=== PATIENT | female | born 1945 | race Caucasian/White ===

== ENCOUNTER 2017-07-03 17:02 | Emergency (ER) | payer MEDICARE ==
[~2017-07-03] VITALS: Ht 165.1 cm; Wt 90.7 kg
--- OUTSIDE RECORDS SUMMARY | 2017-07-03 17:04 | XMS REPORT | Clinical Summary ---
Author Author [facility] Address Unknown Phone Unavailable Care Team Providers Care Lighter Captain Name Role Phone Blaine Gonzalez MD PCP Allergies Active Allergy Reactions Severity Noted Date Comments Iodine And Iodide Hives, Rash Low 01/01/2016 Containing Products Levofloxacin Hives 02/05/2017 Meperidine GI Intolerance, Rash Low 01/01/2016 Morphine Other (See Comments) 01/01/2016 hallucinaton Phenytoin Rash Low 01/01/2016 Phenytoin Sodium Extended Other (See Comments) Medium 01/01/2016 Propoxyphene GI Intolerance, Hives, Low 01/01/2016 N-Acetaminophen Rash Current Medications Prescription Sig. Disp. Refills Start End Date Status Date albuterol (PROAIR Inhale 2 puffs every 6 Active HFA,PROVENTIL (six) hours as needed for HFA,VENTOLIN HFA) 90 wheezing or shortness of mcg/actuation inhaler breath. levalbuterol (XOPENEX) Take 1 mL by nebulization 0 01/20/20 Active 0.63 mg/3 mL nebulizer every 4 (four) hours. 17 solution epINEPHrine (EPIPEN) 0.3 Inject 1 Cartridge as Active mg/0.3 mL auto-injector directed as needed. ergocalciferol (VITAMIN Take 1 capsule (50,000 12 capsule 3 01/27/20 Active D2) 50,000 unit capsule Units total) by mouth 17 once a week. ipratropium (ATROVENT . 05/07/19 Active HFA) 17 mcg/actuation 16 inhaler VENTOLIN HFA 90 0 11/09/19 01/15/20 Discontin mcg/actuation inhaler 16 17 ued DEXILANT 60 mg capsule TK ONE C PO D 12 11/27/19 01/15/20 Discontin 16 17 ued predniSONE (DELTASONE) 20 TK 1 T PO QD FOR 5 DAYS 0 11/09/19 Discontin MG tablet 16 17 ued urea (CARMOL) 40 % cream JT TO THICK SKIN ON FEET 0 11/29/19 Discontin BID UTD 16 17 ued diclofenac (VOLTAREN) 1 % Apply topically 4 (four) 1 Tube 0 04/24/19 01/15/20 Discontin gel times a day. 17 17 ued dexlansoprazole Take 60 mg by mouth 01/17/20 Discontin (DEXILANT) 60 mg capsule daily. 17 ued nizatidine (AXID) 150 MG Take 150 mg by mouth 3 01/27/20 Discontin capsule (three) times a day as 17 ued needed for heartburn. ergocalciferol (VITAMIN Take 50,000 Units by 01/27/20 Discontin D2) 50,000 unit capsule mouth once a week. 17 ued budesonide-formoterol Inhale 2 puffs 2 (two) 05/11/19 Discontin (SYMBICORT) 160-4.5 times a day. 18 ued mcg/actuation inhaler pantoprazole (PROTONIX) Take 1 tablet (40 mg 60 tablet 2 01/17/20 Discontin 40 MG EC tablet total) by mouth 2 (two) 17 17 ued times a day for 30 days. predniSONE (DELTASONE) 10 Take 10 mg by mouth 02/06/20 Discontin mg tablet daily. 17 ued dexlansoprazole Take 60 mg by mouth 01/27/20 Discontin (DEXILANT) 60 mg capsule daily. 17 ued dexlansoprazole Take 1 capsule (60 mg 90 capsule 3 01/27/20 Discontin (DEXILANT) 60 mg capsule total) by mouth daily. 17 18 ued nizatidine (AXID) 150 MG Take 1 capsule (150 mg 180 capsule 1 05/11/19 Discontin capsule total) by mouth 2 (two) 17 18 ued times a day. nystatin (MYCOSTATIN) Take 5 mL (500,000 Units 473 mL 1 01/29/20 100,000 unit/mL total) by mouth 4 (four) 17 17 suspension times a day for 7 days. Swish in mouth predniSONE (DELTASONE) 10 Take 6 tabs x 2 days, 32 tablet 0 02/06/20 02/16/20 mg tablet then 4 tabs daily x 2 17 17 days then 3 tabs daily x 2 days then 2 tabs daily x 2 days then 1 tab daily x 2 days then stop sulfamethoxazole-trimetho Take 1 tablet by mouth 2 20 tablet 0 02/16/20 prim (BACTRIM DS) 800-160 (two) times a day for 10 17 17 mg per tablet days. promethazine-DM Take 5 mL by mouth 4 118 mL 0 03/13/20 04/12/19 (PROMETHAZINE-DM) 6.25-15 (four) times a day as 17 18 mg/5 mL syrup needed for cough for up to 30 days. ergocalciferol (VITAMIN 01/27/20 05/11/19 Discontin D2) 50,000 unit capsule 17 18 ued budesonide-formoterol 01/07/20 05/11/19 Discontin (SYMBICORT) 160-4.5 17 18 ued mcg/actuation inhaler levalbuterol (XOPENEX) 02/14/20 05/11/19 Discontin 0.63 mg/3 mL nebulizer 17 18 ued solution nizatidine (AXID) 150 MG 01/28/20 05/11/19 Discontin capsule 17 18 ued epINEPHrine (EPIPEN . 05/29/19 06/18/19 Discontin 2-ALFRED) 0.3 mg/0.3 mL 16 18 ued auto-injector dexlansoprazole Take 60 mg by mouth 2 09/03/19 05/21/19 Discontin (DEXILANT) 60 mg capsule (two) times a day. 17 18 ued dexlansoprazole Take 1 capsule (60 mg 180 capsule 0 05/21/19 Discontin (DEXILANT) 60 mg capsule total) by mouth 2 (two) 18 18 ued times a day for 90 days. dexlansoprazole Take 1 capsule (60 mg 90 capsule 0 05/21/19 (DEXILANT) 60 mg capsule total) by mouth daily for 18 18 30 days. ergocalciferol (VITAMIN . 05/29/19 06/18/19 Discontin D2) 50,000 unit capsule 16 18 ued epINEPHrine (EPIPEN . 05/29/19 06/18/19 Discontin 2-ALFRED) 0.3 mg/0.3 mL 16 18 ued auto-injector Active Problems Problem Noted Date Achalasia of esophagus 05/28/2017 Last Assessment & Plan: The patient was found to have type III achalasia. This seems to go along with her history of dysphagia as well as regurgitation and chest pain. The patient was very inquisitive and asked numerous questions. She seems to be still very worried about her symptoms of heartburn and if this will get worse after surgery. I discussed with the patient she likely does not have GERD, however, she is still very concerned. Her last pH study showed a normal DeMeester score, on medications. I discussed with her a POEM procedure versus a Heller myotomy with Christoph fundoplication. She is are done some research on her own and is currently requesting a Heller myotomy with Christoph fundoplication to prevent future heartburn. She reports that she will be out of town for a while and will call back to schedule surgery. Risks and benefits of both procedures were discussed with the patient. I will obtain pulmonary clearance prior to surgery. The patient will also need cardiac clearance prior to surgery. Severe persistent asthma with exacerbation 01/13/2017 Patellar sleeve fracture of left knee 01/01/2016 Acute upper respiratory infection 07/13/2015 Asthma 07/13/2015 GERD (gastroesophageal reflux disease) 07/13/2015 Nausea and vomiting 07/13/2015 Encounters Date Type Specialty Care Team Description 06/25/2017 Telephone Gastroenterology Lawanda Guo RN 06/17/2017 Lab Lab Deep Torres MD Pre-diabetes 06/17/2017 Office Visit General Surgery Deep Torres MD Achalasia of esophagus (Primary Dx) 06/17/2017 Orders Only General Surgery Anuradha Wolf MA Obesity, unspecified classification, unspecified obesity type, unspecified whether serious comorbidity present (Primary Dx) 06/17/2017 Orders Only General Surgery Deep Torres MD 06/17/2017 Orders Only General Surgery Deep Torres MD Pre- diabetes (Primary Dx) 05/28/2017 Office Visit Gastroenterology Steve Frank MD Gastroesophageal reflux disease without esophagitis (Primary Dx); Achalasia of esophagus 05/27/2017 Telephone Gastroenterology Lawanda Guo RN 05/26/2017 Hospital Radiology Steve Frank MD Achalasia; Encounter Gastroesophageal reflux disease with esophagitis 05/24/2017 Telephone GastroenterLawanda Pang, THOMPSON 05/24/2017 Telephone Gastroenterology Rochelle Siu MA 05/21/2017 Orders Only Gastroenterology Rochelle Siu, Achalasia (Primary Dx); MA Gastroesophageal reflux disease with esophagitis 05/20/2017 Telephone Gastroenterology Lawanda Guo, THOMPSON 05/19/2017 Telephone GastroenterSteve Brothers MD 05/19/2017 Procedure Pass Gastroenterology 05/19/2017 Surgery Steve Song MD ESOPHAGEAL MANOMETRY WITH IMPEDANCE PROBE 24 HOUR RETURN 05/18/2017 [facility] G[facility]enter[facility] MD Encounter 05/18/2017 Procedure Pass Gastroenterology 05/18/2017 Surgery Steve Song MD ESOPHAGEAL MANOMETRY WITH IMPEDANCE PROBE 05/11/2017 Office Visit Internal Medicine Sarah Gonzalez MD Routine general medical examination at a health care facility (Primary Dx); Hyperglycemia; IFG (impaired fasting glucose); Vitamin D deficiency; Gastroesophageal reflux disease with esophagitis; Recurrent pneumonia; Thyroid nodule; Elevated blood pressure reading without diagnosis of hypertension; Immunization due; Other obesity due to excess calories ; Imbalance 05/07/2017 [facility] GastroenterSteve Brothers MD Encounter 04/30/2017 Telephone Gastroenterology Rochelle Siu MA 04/29/2017 Lab Lab Steve Frank MD 04/29/2017 Documentation Gastroenterology Steve Frank MD 04/27/2017 Telephone Steve Song MD 04/22/2017 Hospital Radiology Steve Frank MD Presbyesophagus; Encounter At risk for aspiration; Gastroesophageal reflux disease, esophagitis presence not specified 04/14/2017 Office Visit GastroenterSteve Brothers MD Gastroesophageal reflux disease, esophagitis presence not specified (Primary Dx); Presbyesophagus; At risk for aspiration; Family history of colon cancer in mother 03/14/2017 Documentation Internal Medicine Sarah Gonzalez MD ENT CONSULT NOTE 03/10/17 03/13/2017 Emergency Emergency Medicine Ramesh Carpio, Chronic coughing (Primary DO Dx) 02/05/2017 Hospital Radiology Sarah Gonzalez MD Cough Encounter 02/05/2017 Office Visit Internal Medicine Sarah Gonzalez MD Cough (Primary Dx); Severe persistent asthma with exacerbation 02/04/2017 Telephone Internal Medicine Tammy Vega 01/28/2017 Orders Only Internal Medicine Sarah Gonzalez MD 01/26/2017 Office Visit Internal Medicine Sarah Gonzalez MD Hospital discharge follow-up (Primary Dx); Moderate persistent asthma with acute exacerbation; Presbyesophagus; At risk for aspiration; Depression, unspecified depression type 01/22/2017 Telephone Internal Medicine Sarah Gonzalez MD 01/18/2017 Telephone Gastroenterology Sujata Cortez MA 01/13/2017 Emergency Obstetrics and Gynecology Meenu Hart MD Pneumonia of left lower - Mukesh Ponce MD lobe due to infectious 01/16/2017 organism (Primary Dx); Moderate persistent asthma with status asthmaticus; Severe persistent asthma with exacerbation 01/13/2017 Telephone Internal Medicine Kathy Lee, RN after 07/02/2016 Immunizations Name Dates Previously Given Next Due FLUCELVAX QUAD PF (0.5mL 01/16/2017 syringe) Influenza Trivalent 01/10/2015 Pneumococcal Conjugate 05/11/2017 13-Valent Pneumococcal 04/12/2011 Polysaccharide Pneumococcal, Unspecified 01/10/2014 Zoster 04/12/2013 Family History Medical History Relation Name Comments Hypertension Brother Jayy [place] extremely high BP Heart murmur Daughter Mitral valve prolapse Daughter Anesthesia problems Father Sennorm Difficulty waking [place] COPD Father Sennett [place] Heart attack Father Sennett [place] Heart disease Father Sennett multiple heart attacks [place] Stroke Father Sennett paralysis-below neck [place] Breast cancer Maternal Aunt Colon cancer Maternal Delta caused Grandfather Saulters Heart disease Maternal Delta multiple heart attacks Grandfather Saulters Stroke Maternal Purvi caused Grandmother Saulters Varicose Veins Maternal Purvi Had surgeries for them Grandmother Saulters Colon cancer Mother Brittany Bittinger Hypertension Mother Brittany Bittinger extremely high BP Stroke Paternal Kell [place] Caused Grandmother Anesthesia problems Son Lorenzo Nitrous oxide seizure John Heart murmur Son Lorenzo [place] No Known Problems Son Relation Name Status Comments Brother Jayy [place] Alive Brother Alive Daughter Alive Father Abeba [place] Maternal Aunt Maternal Grandfather Detla [place] Maternal Grandmother Purvi [place] Alive Mother Brittany Kenny Paternal Grandfather Paternal Grandmother Kell [place] Alive Son Lorenzo Alive John Son Alive Social History Tobacco Use Types Packs/Day Years Used Date Never Smoker Smokeless Tobacco: Never Used Alcohol Use Drinks/Week oz/Week Comments No Sex Assigned at Date Recorded Not on file Last Filed Vital Signs Vital Sign Reading Time Taken Blood Pressure 147/70 06/17/2017 9:28 AM LABOR DELIVERY RN Pulse 64 06/17/2017 9:28 AM LABOR DELIVERY RN Temperature 36.3 C (97.3 F) 06/17/2017 9:28 AM LABOR DELIVERY RN Respiratory Rate 20 05/18/2017 10:29 AM LABOR DELIVERY RN Oxygen Saturation 97% 05/18/2017 10:29 AM LABOR DELIVERY RN Inhaled Oxygen - - Concentration Weight 101 kg (221 lb 11.2 oz) 06/17/2017 9:28 AM LABOR DELIVERY RN Height 165.1 cm (5' 5") 06/17/2017 9:28 AM LABOR DELIVERY RN Body Mass Index 36.89 06/17/2017 9:28 AM LABOR DELIVERY RN Plan of Treatment Date Type Specialty Care Team Description 07/16/2017 Office Visit Gastroenterology Steve Frank MD [address] [facility] [address] [place] [address] [phone] 07/21/2017 Surgery Gastroenterology Deep Torres MD TRENT PLACEMENT [address] [facility] [address] [address] [place] [address] [phone] 07/21/2017 Procedure Pass Gastroenterology 07/21/2017 [facility] Gastroenterology Deep Torres MD Encounter [address] [facility] [address] [place] [address] [phone] 07/23/2017 Surgery Gastroenterology Deep Torres MD TRENT REMOVAL ( 48 HOURS) [address] [facility] [address] [place] [address] [phone] 07/23/2017 Procedure Pass Gastroenterology 07/23/2017 [facility] Gastroenterology Deep Torres MD Encounter [address] [facility] [address] [place] [address] [phone] 11/08/2017 Office Visit Internal Medicine Sarah Gonzalez MD [address] [facility] [address] [place] [address] [phone] Health Maintenance Due Date Last Done Comments MAMMOGRAM 10/19/1997 COLONOSCOPY 04/14/2019 04/14/2014 PNEUMOCOCCAL Completed 04/12/2011 POLYSACCHARIDE VACCINE AGE 65 AND OVER ZOSTER VACCINE Completed 04/12/2013 INFLUENZA VACCINE Completed 01/16/2017, 01/10/2015 PNEUMOCOCCAL-13 Completed 05/11/2017 Procedures Procedure Name Priority Date/Time Associated Diagnosis Comments ESOPHAGEAL MANOMETRY WITH 05/18/2017 Chronic GERD IMPEDANCE PROBE 9:00 AM LABOR DELIVERY RN after 07/02/2016 Results * Hemoglobin A1c (06/17/2017) Only the most recent of 2 results within the time period is included. Component Value Ref Range Hemoglobin A1C 5.1 <5.7 % of total Hgb Comment: For the purpose of screening for the presence of diabetes: <5.7% Consistent with the absence of diabetes 5.7-6.4% Consistent with increased risk for diabetes (prediabetes) > or=6.5% Consistent with diabetes This assay result is consistent with a decreased risk of diabetes. Currently, no consensus exists regarding use of hemoglobin A1c for diagnosis of diabetes in children. According to [place] Citizen Diabetes Association (ADA) guidelines, hemoglobin A1c <7.0% represents optimal control in non- diabetic patients. Different metrics may apply to specific patient populations. Standards of Medical Care in Diabetes(ADA). Specimen Performing Laboratory [facility] Narrative FASTING: UNKNOWN * FL Esophagram Complete (05/26/2017 12:54 PM) Only the most recent of 2 results within the time period is included. Specimen Performing Laboratory [facility] [address] [place] [address] Narrative EXAMINATION:FL ESOPHAGRAM COMPLETE CLINICAL HISTORY:K22.0 Achalasia of cardia, K21.0 Gastro-esophageal reflux disease with esophagitis, Achalasia COMPARISON:None available Fluoroscopy time: 0.5 minutes Number fluoroscopic images: 5 FINDINGS: The patient swallowed barium without difficulty. The examination was performed per the foregut protocol. Loss of normal esophageal motility with loss of the normal stripping wave and significant tertiary contractions of the distal esophagus consistent with achalasia. At 1 minute, the contrast column was 18 cm cranially and 26 cm caudally. At 2 minutes, the contrast column was 19 cm cranially and 26 cm caudally. There is complete emptying of the esophagus at 5 minutes. A barium pill was administered which demonstrated no evidence of delayed passage through the esophagus. IMPRESSION: Imaging findings consistent with achalasia. Contrast emptying as above. No obstruction to passage of a barium tablet. [facility]-[id number] Procedure Note [facility], Radiology Results Incoming - 05/26/2017 1:12 PM LABOR DELIVERY RN EXAMINATION: FL ESOPHAGRAM COMPLETE CLINICAL HISTORY: K22.0 Achalasia of cardia, K21.0 Gastro-esophageal reflux disease with esophagitis, Achalasia COMPARISON: None available Fluoroscopy time: 0.5 minutes Number fluoroscopic images: 5 FINDINGS: The patient swallowed barium without difficulty. The examination was performed per the foregut protocol. Loss of normal esophageal motility with loss of the normal stripping wave and significant tertiary contractions of the distal esophagus consistent with achalasia. At 1 minute, the contrast column was 18 cm cranially and 26 cm caudally. At 2 minutes, the contrast column was 19 cm cranially and 26 cm caudally. There is complete emptying of the esophagus at 5 minutes. A barium pill was administered which demonstrated no evidence of delayed passage through the esophagus. IMPRESSION: Imaging findings consistent with achalasia. Contrast emptying as above. No obstruction to passage of a barium tablet. [facility]-[id number] * Vitamin D 25 hydroxy level (05/11/2017 1:04 PM) Component Value Ref Range Vitamin D, 25-hydroxy 30 30 - 100 ng/mL Comment: Vitamin D Status 25-OH Vitamin D: Deficiency: <20 ng/mL Insufficiency: 20 - 29 ng/mL Optimal: > or=30 ng/mL For 25-OH Vitamin D testing on patients on D2-supplementation and patients for whom quantitation of D2 and D3 fractions is required, the QuestAssureD() 25-OH VIT D, (D2,D3), LC/MS/MS is recommended: order code 09309 (patients >2yrs). For more information on this test, go to: http://education.[place]/faq/WHV888 (This link is being provided for informational/educational purposes only.) Specimen Performing Laboratory [facility] * Lipid panel (05/11/2017 1:04 PM) Component Value Ref Range Cholesterol, total 147 <200 mg/dL HDL cholesterol 70 >50 mg/dL Triglycerides 95 <150 mg/dL LDL cholesterol 59 mg/dL (calc) calculated Comment: Reference range: <100 Desirable range <100 mg/dL for patients with CHD or diabetes and <70 mg/dL for diabetic patients with known heart disease. LDL-C is now calculated using the Alex-Jerrell calculation, which is a validated novel method providing better accuracy than the Friedewald equation in the estimation of LDL-C. Alex HOYOS et al. FLORY. 2013;310(19): 8147-6994 (http://education.[place]/faq/WLU137) Cholesterol/HDL ratio 2.1 <5.0 (calc) Non-HDL cholesterol 77 <130 mg/dL (calc) Comment: For patients with diabetes plus 1 major ASCVD risk factor, treating to a non-HDL-C goal of <100 mg/dL (LDL-C of <70 mg/dL) is considered a therapeutic option. Specimen Performing Laboratory [facility] * Basic metabolic panel (05/11/2017 1:04 PM) Only the most recent of 2 results within the time period is included. Component Value Ref Range Glucose 95 65 - 99 mg/dL Comment: Fasting reference interval BUN, whole blood 12 7 - 25 mg/dL Creatinine 0.69 0.50 - 0.99 mg/dL Comment: For patients >49 years of age, the reference limit for Creatinine is approximately 13% higher for people identified as -[place] Citizen. EGFR Non-Afr. [place] Citizen 89 > OR=60 mL/min/1.73m2 EGFR 103 > OR=60 mL/min/1.73m2 BUN/creatinine ratio NOT APPLICABLE 6 - 22 (calc) Sodium 146 135 - 146 mmol/L Potassium 4.4 3.5 - 5.3 mmol/L Chloride 109 98 - 110 mmol/L CO2 29 20 - 31 mmol/L Calcium 9.7 8.6 - 10.4 mg/dL Specimen Performing Laboratory [facility] * Surgical pathology request (04/29/2017 4:57 PM) Component Value Ref Range Surgical pathology report See link below for PDF Lab Report Result status This is Final Report to [id number] Specimen Performing Laboratory [facility] DEPARTMENT OF PATHOLOGY AND GENOMIC MEDICINE [address] [place] [id number] * NM Gastric Emptying (04/22/2017 1:55 PM) Specimen Performing [facility] [address] [place] [id number] Narrative Procedure:NM GASTRIC EMPTYING Clinical History:K22.8 Other specified diseases of esophagus, Z91.89 Other specified personal risk factorsnot elsewhere classified, early satiety Technique: 0.8 millicuries of [id number] colloid were mixed with an egg and cooked. The egg was fed to the patient and dynamic imaging of the abdomen in the anterior and posterior projections was performed for 90 minutes. Quantification of gastric emptying was performed using the geometric mean of the anterior and posterior projections. Delayed imaging at 4 hours was also performed. Findings: 1st 90 minutes (supine position):Gastric emptying half plzu=073 minutes ( normal is <100 minutes). 4 hour delayed imaging:Gastric retention=5% (normal is <10%) Impression: Gastric emptying is mildly delayed during the first 90 minutes while lying in a supine position. Following ambulation, delayed imaging demonstrates normal emptying. Although unproven, in such discrepancies the delayed images are generally considered to be more accurate. Alternatively, gastric emptying in this patient may be very position-dependent. [facility]-[id number] Procedure Note [facility], Radiology Results Incoming - 04/22/2017 3:22 PM LABOR DELIVERY RN Procedure: NM GASTRIC EMPTYING Clinical History: K22.8 Other specified diseases of esophagus, Z91.89 Other specified personal risk factors not elsewhere classified, early satiety Technique: 0.8 millicuries of [id number] colloid were mixed with an egg and cooked. The egg was fed to the patient and dynamic imaging of the abdomen in the anterior and posterior projections was performed for 90 minutes. Quantification of gastric emptying was performed using the geometric mean of the anterior and posterior projections. Delayed imaging at 4 hours was also performed. Findings: 1st 90 minutes (supine position): Gastric emptying half lhim=951 minutes ( normal is <100 minutes). 4 hour delayed imaging: Gastric retention=5% (normal is <10%) Impression: Gastric emptying is mildly delayed during the first 90 minutes while lying in a supine position. Following ambulation, delayed imaging demonstrates normal emptying. Although unproven, in such discrepancies the delayed images are generally considered to be more accurate. Alternatively, gastric emptying in this patient may be very position-dependent. [facility]-[id number] * ECG ED Preliminary Interpretation - NOT AN ORDER (03/14/2017 5:56 AM) Hernandez Carpio DO 03/14/20175:56 AM ECG ED Preliminary Interpretation - Not an Order Performed by: RAMESH CARPIO Authorized by: RAMESH CARPIO ECG reviewed by ED Physician in the absence of a photo offset printer: yes Interpretation: Interpretation: normal Rate: ECG rate:81 ECG rate assessment: normal Rhythm: Rhythm: sinus rhythm QRS: QRS axis:Normal QRS intervals:Normal Conduction: Conduction: normal ST segments: ST segments:Normal T waves: T waves: normal * Estimated GFR (03/13/2017 8:56 PM) Only the most recent of 3 results within the time period is included. Component Value Ref Range GFR Non Af Amer 62 mL/min/1.73 m2 GFR Af Amer 75 mL/min/1.73 m2 Comment: Chronic kidney disease: <60 mL/min/1.73m2 Kidney failure: <15 mL/min/1.73m2 The estimated GFR is calculated from the IDMS-traceable Modification of Diet in Renal Disease Equation. The accuracy of the calculation is poor when the creatinine is normal. Calculated values >90 mL/min/1.73m2 are not reported. This equation has not been validated in children (<18 years), women, the elderly (>70 years), or ethnic groups other than Caucasians and Americans. Specimen Performing Laboratory Plasma specimen [facility] DEPARTMENT OF PATHOLOGY AND GENOMIC MEDICINE [address] [place] [id number] * Troponin (03/13/2017 8:56 PM) Only the most recent of 3 results within the time period is included. Component Value Ref Range Troponin <0.30 0.00 - 0.30 ng/mL Comment: 0.30 - 1.49 ng/ml May indicate increased risk of acute coronary syndrome. >=1.5 ng/ml Consistent with acute myocardial infarction. The diagnostic value of a single normal or non-diagnostic result is questionable. Serial samples at 2-6 hour intervals are required to rule out acute myocardial injury. Specimen Performing Laboratory Plasma specimen [facility] DEPARTMENT OF PATHOLOGY AND GENOMIC MEDICINE [address] [place] [id number] * Partial thromboplastin time, activated (03/13/2017 8:56 PM) Only the most recent of 2 results within the time period is included. Component Value Ref Range PTT 25.1 23.0 - 36.0 sec Comment: PTT therapeutic range for unfractionated heparin is 61.0-112.0 seconds which corresponds to Anti-Xa 0.3-0.7 U/ml. Specimen Performing Laboratory Blood [facility] DEPARTMENT OF PATHOLOGY AND GENOMIC MEDICINE [address] [place] [id number] * Prothrombin time with INR (03/13/2017 8:56 PM) Only the most recent of 2 results within the time period is included. Component Value Ref Range Prothrombin time 12.8 12.0 - 15.0 sec INR 1.0 Comment: The International Normalized Ratio (INR) is a therapeutic monitoring tool for patients who are stable on oral anticoagulant therapy. An INR of 2.0-3.0 is suggested for deep vein thrombosis/pulmonary embolism. Specimen Performing Laboratory Blood [facility] DEPARTMENT OF PATHOLOGY AND GENOMIC MEDICINE [address] [place] [id number] * CBC with platelet and differential (03/13/2017 8:56 PM) Only the most recent of 3 results within the time period is included. Component Value Ref Range WBC 9.51 4.50 - 11.00 k/uL RBC 4.29 4.20 - 5.50 m/uL HGB 13.5 12.0 - 16.0 g/dL HCT 40.7 37.0 - 47.0 % MCV 94.9 82.0 - 100.0 fL MCH 31.5 27.0 - 34.0 pg MCHC 33.2 31.0 - 37.0 g/dL RDW - SD 48.0 37.0 - 55.0 fL MPV 10.4 8.8 - 13.2 fL Platelet count 294 150 - 400 k/uL Nucleated RBC 0.00 /100 WBC Neutrophils 62.3 39.0 - 69.0 % Lymphocytes 28.0 25.0 - 45.0 % Monocytes 7.6 0.0 - 10.0 % Eosinophils 1.3 0.0 - 5.0 % Basophils 0.5 0.0 - 1.0 % Immature granulocytes 0.3Comment: "Immature granulocytes" 0.0 - 1.0 % (promyelocytes, myelocytes, metamyelocytes) Specimen Performing Laboratory Blood [facility] DEPARTMENT OF PATHOLOGY AND GENOMIC MEDICINE [address] [place] [id number] * B natriuretic peptide (03/13/2017 8:56 PM) Only the most recent of 2 results within the time period is included. Component Value Ref Range BNP 8 0 - 100 pg/mL Specimen Performing Laboratory Blood [facility] DEPARTMENT OF PATHOLOGY AND [address] [address] * Lactic acid level (03/13/2017 8:56 PM) Component Value Ref Range Lactic acid 3.1 (H) 0.5 - 2.2 mmol/L Specimen Performing Laboratory Plasma specimen [facility] DEPARTMENT OF PATHOLOGY AND [address] [address] * Creatine kinase, total (CPK) (03/13/2017 8:56 PM) Only the most recent of 2 results within the time period is included. Component Value Ref Range Creatine kinase 121 26 - 192 U/L Specimen Performing Laboratory Plasma specimen [facility] DEPARTMENT OF PATHOLOGY AND [address] [address] * Comprehensive metabolic panel (03/13/2017 8:56 PM) Only the most recent of 2 results within the time period is included. Component Value Ref Range Sodium 142 135 - 148 mEq/L Potassium 4.5 3.5 - 5.0 mEq/L Chloride 104 98 - 112 mEq/L CO2 20 (L) 24 - 31 mEq/L Anion gap 18 (H) 7 - 15 mEq/L Comment: Starting from July , anion gap calculation no longer incorporates potassium. Please note the change. BUN 10 8 - 23 mg/dL Creatinine 0.9 0.5 - 0.9 mg/dL Glucose 109 (H) 65 - 99 mg/dL Calcium 9.3 8.8 - 10.2 mg/dL Protein 6.9 6.3 - 8.3 g/dL Comment: [place] 4.6-7.0 g/dL 1 week 4.4-7.6 g/dL 7 months-1year 5.1-7.3 g/dL 1-2 years 5.6-7.5 g/dL >3 years 6.0-8.0 g/dL 18-150 6.3-8.3 g/dL Albumin 3.7 3.5 - 5.0 g/dL A/G ratio 1.2 0.7 - 3.8 Alkaline phosphatase 85 35 - 104 U/L AST 30 10 - 35 U/L ALT 21 5 - 50 U/L Total bilirubin 0.4 0.0 - 1.2 mg/dL Specimen Performing Laboratory Plasma specimen [facility] DEPARTMENT OF PATHOLOGY AND GENOMIC MEDICINE [address] [place] [id number] * ECG 12 lead (03/13/2017 8:45 PM) Component Value Ref Range Ventricular rate 81 Atrial rate 81 VA interval 130 QRSD interval 90 QT interval 370 QTC interval 429 P axis 1 62 QRS axis 1 15 T wave axis 51 EKG impression Normal sinus rhythm-Normal ECG-In automated comparison with ECG of 25-MAR-2016 12:32,-Nonspecific T wave abnormality no longer evident in Inferior leads-Nonspecific T wave abnormality no longer evident in Lateral leads- Specimen Performing Laboratory [facility] MUSE [address] [place] [address] * XR Chest 2 Vw (03/13/2017 8:42 PM) Only the most recent of 3 results within the time period is included. Specimen Performing Laboratory [address] [address] Narrative EXAMINATION:XR CHEST 2 VW CLINICAL HISTORY:SHORTNESS OF BREATH COMPARISON:To previous examination from 02/05/2017 IMPRESSION: The cardiomediastinal silhouette is normal in appearance. The lungs are clear. There is no evidence of consolidation, congestion, or pneumothorax. A pleural effusion is not present. Visualized skeletal structures demonstrate no definite abnormality. Negative examination. [facility]-[id number] Procedure Note Interface, Radiology Results Incoming - 03/13/2017 8:46 PM LABOR DELIVERY RN EXAMINATION: XR CHEST 2 VW CLINICAL HISTORY: SHORTNESS OF BREATH COMPARISON: To previous examination from 02/05/2017 IMPRESSION: The cardiomediastinal silhouette is normal in appearance. The lungs are clear. There is no evidence of consolidation, congestion, or pneumothorax. A pleural effusion is not present. Visualized skeletal structures demonstrate no definite abnormality. Negative examination. [facility]-[id number] * POC glucose (01/16/2017 9:31 AM) Component Value Ref Range POC glucose 102 (H) 65 - 99 mg/dL Comment: [facility] Notified RN Meter ID: [id number] Hub Inventory Specialist: Lizzeth Byrd I Specimen Performing Laboratory [facility] DEPARTMENT OF PATHOLOGY AND [facility] MEDICINE [address] [place] [address] * Sputum culture (01/15/2017 11:00 AM) Only the most recent of 2 results within the time period is included. Component Value Ref Range Sputum culture isolate Normal oral tomeka isolated. Comment: Specimen Information Specimen Source: Sputum Specimen Site: Expectorated Specimen Performing Laboratory Sputum - Expectorated [facility] [place] [address] * Gram stain (01/15/2017 11:00 AM) Only the most recent of 2 results within the time period is included. Component Value Ref Range Gram stain isolate Many WBC's Occasional Gram positive cocci in chains Comment: Specimen Information Specimen Source: Sputum Specimen Site: Expectorated Specimen Performing Laboratory Sputum - Expectorated [facility] [place] [address] * Cytomegalovirus by PCR (01/14/2017 4:00 AM) Component Value Ref Range Cytomegalovirus by PCR Not-Detected Not-Detected IU/mL Cytomegalovirus by PCR See link below for PDF Lab ReportComment: Specimen Performing Laboratory [facility] [place] [address] * Thyroid stimulating hormone (01/14/2017 4:00 AM) Component Value Ref Range TSH 1.17 0.27 - 4.20 uIU/mL Specimen Performing Laboratory Plasma specimen [facility] [place] [address] * T4, free (01/14/2017 4:00 AM) Component Value Ref Range T4, free 1.4 0.9 - 1.7 ng/dL Specimen Performing Laboratory Plasma specimen [facility] [place] [address] * Respiratory pathogen panel (01/14/2017 3:10 AM) Component Value Ref Range Respiratory pathogen Negative for all pathogens tested: panel Negative for Adenovirus Negative for Coronavirus HKU1 Negative for Coronavirus NL63 Negative for Coronavirus 229E Negative for Coronavirus OC43 Negative for Human Metapneumovirus Negative for Rhinovirus/Enterovirus Negative for Influenza A Negative for Influenza A/H1 Negative for Influenza A/H3 Negative for Influenza A/H1-2009 Negative for Influenza B Negative for Parainfluenza Virus 1 Negative for Parainfluenza Virus 2 Negative for Parainfluenza Virus 3 Negative for Parainfluenza Virus 4 Negative for Respiratory Syncytial Virus Negative for Bordetella pertussis Negative for Chlamydophila pneumoniae Negative for Mycoplasma pneumoniae This real-time PCR assay detects the presence of nucleic acids (RNA or DNA) for the respiratory pathogens listed. A result of "Not-detected" does not exclude the possibility of the presence of one or more pathogens at concentrations less than the detectable limits of the assay. Comment: Specimen Information Specimen Source: Nares Specimen Site: Not specified Specimen Performing Laboratory Nares - Not specified [facility] DEPARTMENT OF PATHOLOGY AND GENOMIC MEDICINE [address] [place] [phone] * CT Chest Wo Contrast (01/13/2017 9:58 PM) Specimen Performing Laboratory [facility] [address] [place] [address] Narrative EXAMINATION: CT CHEST WO CONTRAST CLINICAL HISTORY: coughpneumonia TECHNIQUE: Multiple axial images were obtained from the lung apices to the lung bases without the administration of intravenous contrast.The lack of intravenous contrast reduces the sensitivity of detecting solid organ disease and evaluating vasculature. Coronal and sagittal reformats were obtained.CT imaging was performed with iterative reconstruction technique and/or automated exposure control to reduce radiation dose. COMPARISON: 04/30/2015 FINDINGS: Heart size is normal. The aorta measures within normal limits.The pulmonary artery is within normal limits. Triangular-shaped water attenuation lesion in anterior mediastinum is again seen which may represent a pericardial or thymic cyst. It would be best assessed , however, with a contrast-enhanced exam. Lingular subsegmental atelectasis is present. Tiny right pulmonary calcified granuloma is seen. Small left lower lobe pulmonary nodule is present. It is unchanged. Another tiny left lower lobe nodules also unchanged from 2016. A third left lower lobe pulmonary nodule stable and measures 4 mm. Decreased attenuation of the liver is compatible fatty infiltration. Calcified hepatic and splenic granulomata are present. Gallbladder, adrenals, and pancreas are within normal limits. Suspicious osseous lesion is not seen. IMPRESSION: Left lower lobe pulmonary nodule stable from the prior study. Water attenuation structure in the anterior mediastinum. Mild/moderate lingular atelectasis. Procedure Note Interface, Radiology Results Incoming - 01/13/2017 10:16 PM CDT EXAMINATION: CT CHEST WO CONTRAST CLINICAL HISTORY: cough pneumonia TECHNIQUE: Multiple axial images were obtained from the lung apices to the lung bases without the administration of intravenous contrast.The lack of intravenous contrast reduces the sensitivity of detecting solid organ disease and evaluating vasculature. Coronal and sagittal reformats were obtained.CT imaging was performed with iterative reconstruction technique and/or automated exposure control to reduce radiation dose. COMPARISON: 04/30/2015 FINDINGS: Heart size is normal. The aorta measures within normal limits. The pulmonary artery is within normal limits. Triangular-shaped water attenuation lesion in anterior mediastinum is again seen which may represent a pericardial or thymic cyst. It would be best assessed , however, with a contrast-enhanced exam. Lingular subsegmental atelectasis is present. Tiny right pulmonary calcified granuloma is seen. Small left lower lobe pulmonary nodule is present. It is unchanged. Another tiny left lower lobe nodules also unchanged from 2016. A third left lower lobe pulmonary nodule stable and measures 4 mm. Decreased attenuation of the liver is compatible fatty infiltration. Calcified hepatic and splenic granulomata are present. Gallbladder, adrenals, and pancreas are within normal limits. Suspicious osseous lesion is not seen. IMPRESSION: Left lower lobe pulmonary nodule stable from the prior study. Water attenuation structure in the anterior mediastinum. Mild/moderate lingular atelectasis. after 07/02/2016 Insurance Payer Benefit Subscriber ID Type Phone Address Plan / Group [employer] xxxxxxxxx [employer]
[2017-07-03] MEDS ORDERED: PROAIR HFA INH8.5 GM (18:45)
[2017-07-03 19:49] VITALS: BP 165/75
== END 2017-07-03 19:35 | disposition home or self-care (01) ==
LOC: FSED 17:02
DX: R11.2 Nausea with vomiting, unspecified (principal); R19.7 Diarrhea, unspecified; K21.9 Gastro-esophageal reflux disease without esophagitis; J45.909 Unspecified asthma, uncomplicated; Z87.01 Personal history of pneumonia (recurrent)
CPT/HCPCS: 80048; 99283

== ENCOUNTER 2017-08-15 16:16 | Emergency (ER) | payer MEDICARE, OTHER ==
[~2017-08-15] VITALS: Ht 165.1 cm; Wt 90.7 kg
[~2017-08-15 16:16] MED LIST: PROAIR HFA INH8.5 GM
--- OUTSIDE RECORDS SUMMARY | 2017-08-15 16:18 | XMS REPORT | Clinical Summary ---
Author Author [facility] Address Unknown Phone Unavailable Care Team Providers Care Meeting Planner Name Role Phone Blaine Gonzalez MD PCP [...] Disp. Refills Start End Date Status Date levalbuterol (XOPENEX) Take 1 mL by nebulization [...] 05/07/19 Active HFA) 17 mcg/actuation 16 inhaler albuterol (PROAIR Inhale 2 puffs every 6 18 g 3 08/14/19 Active HFA,PROVENTIL (six) hours as needed for 18 HFA,VENTOLIN HFA) 90 wheezing or shortness of mcg/actuation inhaler breath. VENTOLIN HFA 90 0 11/09/19 01/15/20 Discontin [...] gel times a day. 17 17 ued albuterol (PROAIR Inhale 2 puffs every 6 08/14/19 Discontin HFA,PROVENTIL (six) hours as needed for 18 ued HFA,VENTOLIN HFA) 90 wheezing or shortness of mcg/actuation inhaler breath. dexlansoprazole Take 60 mg by mouth 01/17/20 [...] POEM procedure versus a Heller myotomy with Lexus fundoplication. She is are done some research on her own and is currently requesting a Heller myotomy with Lexus fundoplication to prevent future heartburn. She reports [...] Encounters Date Type Specialty Care Team Description 08/13/2017 Transcribe General Surgery Waqar Parra MA Achalasia ( Primary Dx) Orders 08/12/2017 Telephone Internal Medicine Sarah Gonzalez MD 07/23/2017 [facility] Gastroenterology Deep Torres MD Encounter 07/23/2017 Procedure Pass Gastroenterology 07/23/2017 Surgery Gastroenterology Deep Torres MD TRENT REMOVAL ( 48 HOURS) 07/21/2017 Procedure Pass Gastroenterology 07/16/2017 Office Visit Gastroenterology Anju Frankn A., MD Achalasia and cardiospasm (Primary Dx) 07/14/2017 Telephone GastroenterSteve Brothers MD 06/25/2017 Telephone Gastroenterology Lawanda Guo RN 06/17/2017 Lab Lab Deep Torres MD Pre-diabetes 06/17/2017 Office Visit General Surgery Deep Torres MD Achalasia of esophagus (Primary Dx) 06/17/2017 Orders Only General Surgery Anuradha Wolf, BRISEIDA Obesity, unspecified classification, unspecified obesity type, unspecified whether serious comorbidity present (Primary Dx) 06/17/2017 Orders Only General Surgery Deep Torres MD 06/17/2017 Orders Only General Surgery Deep Torres MD Pre- diabetes (Primary Dx) 05/28/2017 Office Visit Gastroenterology Steve Frank MD Gastroesophageal reflux disease without esophagitis (Primary Dx); Achalasia of esophagus 05/27/2017 Telephone Gastroenterology Lawanda Guo RN 05/26/2017 [facility] Radiology Steve Frank MD Achalasia; Encounter Gastroesophageal reflux disease with esophagitis 05/24/2017 Telephone GastroenterLawanda Pang RN 05/24/2017 Telephone Gastroenterology Rochelle Siu MA 05/21/2017 Orders Only Gastroenterology Rochelle Siu, Achalasia (Primary Dx); BRISEIDA Gastroesophageal reflux disease with esophagitis 05/20/2017 Telephone Lawanda Avila RN 05/19/2017 Telephone GastroenterSteve Brothers MD 05/19/2017 Procedure Pass Gastroenterology 05/19/2017 Surgery Steve Song MD ESOPHAGEAL MANOMETRY WITH IMPEDANCE PROBE 24 HOUR RETURN 05/18/2017 [facility] Gastroenterology Steve Frank MD Encounter 05/18/2017 Procedure Pass Gastroenterology 05/18/2017 [...] due to excess calories ; Imbalance 05/07/2017 Hospital Gastroenterology Steve Frank MD Encounter 04/30/2017 Telephone Gastroenterology Rochelle Siu MA 04/29/2017 Lab Lab Steve Frank MD 04/29/2017 Documentation GastroenterSteve Brothers MD 04/27/2017 Telephone Gastroenterology Steve Frank MD 04/22/2017 [facility] Radiology Steve Frank MD Presbyesophagus; Encounter At risk for aspiration; Gastroesophageal reflux disease, esophagitis presence not specified 04/14/2017 Office Visit Gastroenterology Steve Frank MD Gastroesophageal reflux disease, esophagitis presence not [...] Hart MD Pneumonia of left lower - Kris, MD Mukesh lobe due to infectious 01/16/2017 organism (Primary Dx); Moderate persistent asthma with status asthmaticus; Severe persistent asthma with exacerbation 01/13/2017 Telephone Internal Medicine Kathy Lee RN after 08/14/2016 Immunizations Name Dates Previously Given Next Due FLUCELVAX QUAD PF (0.5mL 01/16/2017 syringe) Influenza Trivalent 01/10/2015 Pneumococcal Conjugate 05/11/2017 13-Valent Pneumococcal 04/12/2011 Polysaccharide Pneumococcal, Unspecified 01/10/2014 Zoster 04/12/2013 Family History Medical History Relation Name Comments Hypertension Brother Jayy Horncomb extremely high BP Heart murmur Daughter Mitral valve prolapse Daughter Anesthesia problems Father Abeba Difficulty waking Yisel COPD Father Sennett [place] Heart attack Father Sennett Yisel Heart disease Father Sennett multiple heart attacks Yisel Stroke Father Sennorm paralysis-below neck Yisel Breast cancer Maternal Aunt Colon cancer Maternal Delta caused Grandfather Saulters Heart disease Maternal Delta multiple heart attacks Grandfather Saulters Stroke Maternal Purvi caused Grandmother Saulters Varicose Veins Maternal Purvi Had surgeries for them Grandmother Saulters Colon cancer Mother Brittany [place] Hypertension Mother Brittany Kenny extremely high BP Stroke Paternal Kell [place] Caused Grandmother Anesthesia problems Son Lorenzo Nitrous oxide seizure John Heart murmur Son Lorenzo Rich No Known Problems Son Relation Name Status Comments Brother Jayy Marteb Alive Brother Alive Daughter Alive Father Abeba [place] Maternal Aunt Maternal Grandfather Delta Saulters Maternal Grandmother Purvi Saulters Alive Mother Brittany [place] Paternal Grandfather Paternal Grandmother Kell Yisel Alive Son Lorenzo Rich Son Alive Social History Tobacco Use Types Packs/Day Years Used Date Never Smoker Smokeless Tobacco: Never Used Alcohol Use Drinks/Week oz/Week Comments No Sex Assigned at Date Recorded Not on file Last Filed Vital Signs Vital Sign Reading Time Taken Blood Pressure 117/80 07/16/2017 9:34 AM CDT Pulse 79 07/16/2017 9:34 AM CDT Temperature 36.9 C (98.5 F) 07/16/2017 9:34 AM CDT Respiratory Rate 20 05/18/2017 10:29 AM DIRECTOR OF GRANTS Oxygen Saturation 97% 05/18/2017 10:29 AM [employer] Inhaled Oxygen - - Concentration Weight 93 kg (205 lb) 07/16/2017 9:34 AM CDT Height 165.1 cm (5' 5") 07/16/2017 9:34 AM CDT Body Mass Index 34.11 07/16/2017 9:34 AM CDT Plan of Treatment Date Type Specialty Care Team Description 08/30/2017 Surgery General Surgery Deep Torres MD LAPAROSCOPIC HELLER [address] [facility] MYNOTOMY W/ LEXUS [address] FUNDOPLICATION [place], [place] [id number] 08/30/2017 Procedure Pass General Surgery 08/30/2017 [facility] General Surgery Deep Torres MD Encounter [address] [facility] [address] [place] [address] [phone] 11/08/2017 Office Visit Internal Medicine Sarah Gonzalez MD [address] [facility] [address] [place], [place] [id number] Health Maintenance Due Date Last Done Comments MAMMOGRAM 10/19/1997 SHINGRIX VACCINE (#1) 10/19/1997 INFLUENZA VACCINE 11/10/2017 01/16/2017, 01/10/2015 COLONOSCOPY 04/14/2019 04/14/2014 PNEUMOCOCCAL Completed 04/12/2011 POLYSACCHARIDE VACCINE AGE 65 AND OVER ZOSTER VACCINE Completed 04/12/2013 PNEUMOCOCCAL-13 Completed 05/11/2017 Procedures Procedure Name Priority Date/Time Associated Diagnosis Comments ESOPHAGEAL MANOMETRY WITH 05/18/2017 Chronic GERD IMPEDANCE PROBE 9:00 AM DIRECTOR OF GRANT[employer] after 08/14/2016 Results * Hemoglobin A1c (06/17/2017) Only the [...] diagnosis of diabetes in children. According to [place] Diabetes Association (ADA) guidelines, hemoglobin A1c <7.0% represents optimal control in non- diabetic patients. Different metrics may apply to specific patient populations. Standards of Medical Care in Diabetes(ADA). Specimen Performing Laboratory Blood [facility] Narrative FASTING: UNKNOWN * FL Esophagram Complete (05/26/2017 12:54 PM) Only the most recent of 2 results within the time period is included. Specimen Performing Laboratory [facility] [address] [place] [address] Narrative EXAMINATION:FL ESOPHAGRAM COMPLETE CLINICAL HISTORY:K22.0 Achalasia [...] obstruction to passage of a barium tablet. [facility]-[id number] Procedure Note Interface, Radiology Results Incoming - 05/26/2017 1:12 PM DIRECTOR OF GRANTS EXAMINATION: FL ESOPHAGRAM COMPLETE CLINICAL HISTORY: K22.0 [...] obstruction to passage of a barium tablet. [facility]-[id number] * Vitamin D 25 hydroxy level (05/11/2017 1:04 PM) Component Value Ref Range Vitamin D, 25-hydroxy 30 30 - 100 ng/mL Comment: Vitamin D Status 25-OH Vitamin D: Deficiency: <20 ng/mL Insufficiency: 20 - 29 ng/mL Optimal: > or=30 ng/mL For 25-OH Vitamin D testing on patients on D2-supplementation and patients for whom quantitation of D2 and D3 fractions is required, the QuestAssureD(TM) 25-OH VIT D, (D2,D3), LC/MS/MS is recommended: order code 33076 (patients >2yrs). For more information on this test, go to: http://education.[employer]/faq/MRG122 (This link is being provided for informational/educational [...] disease. LDL-C is now calculated using the Alex-Allan calculation, which is a validated novel method providing better accuracy than the Friedewald equation in the estimation of LDL-C. Alex SS et al. FLORY. 2013;310(66): 0290-5380 (http://[employer].Ciafo/faq/PZL512) Cholesterol/HDL ratio 2.1 <5.0 (calc) Non-HDL cholesterol [...] approximately 13% higher for people identified as -Hungarian. EGFR Non-Afr. Hungarian 89 > OR=60 mL/min/1.73m2 EGFR 103 > [...] Result status This is Final Report to [id number] Specimen Performing Laboratory [facility] DEPARTMENT OF PATHOLOGY AND GENOMIC MEDICINE [address] [place] [address] * NM Gastric Emptying (04/22/2017 1:55 PM) Specimen Performing Laboratory [facility] [address] [place] [address] Narrative Procedure:NM GASTRIC EMPTYING Clinical History:K22.8 Other specified diseases of esophagus, Z91.89 Other specified personal risk factorsnot elsewhere classified, early satiety Technique: 0.8 millicuries of [id number] colloid were mixed with an egg and [...] 1st 90 minutes (supine position):Gastric emptying half npiz=555 minutes ( normal is <100 minutes). 4 hour delayed imaging:Gastric retention=5% (normal is <10%) Impression: Gastric emptying is mildly delayed during the first 90 minutes while lying in a supine position. Following ambulation, delayed imaging demonstrates normal emptying. Although unproven, in such discrepancies the delayed images are generally considered to be more accurate. Alternatively, gastric emptying in this patient may be very position-dependent. [facility]-[id number] Procedure Note Interface, Radiology Results Incoming - 04/22/2017 3:22 PM DIRECTOR OF GRANTS Procedure: NM GASTRIC EMPTYING Clinical History: K22.8 Other specified diseases of esophagus, Z91.89 Other specified personal risk factors not elsewhere classified, early satiety Technique: 0.8 millicuries of [id number]-likgew colloid were mixed with an egg and [...] 90 minutes (supine position): Gastric emptying half kkxx=919 minutes ( normal is <100 minutes). 4 [...] in this patient may be very position-dependent. [facility]-[id number] * ECG ED Preliminary Interpretation - NOT AN ORDER (03/14/2017 5:56 AM) Hernandez Carpio DO 03/14/20175:56 AM ECG ED Preliminary Interpretation - Not an Order Performed by: RAMESH CARPIO Authorized by: RAMESH CARPIO ECG reviewed by ED Physician in the absence of a occupational therapist aide: yes Interpretation: Interpretation: normal Rate: ECG rate:81 [...] and Americans. Specimen Performing Laboratory Plasma specimen [facility] DEPARTMENT OF PATHOLOGY AND GENOMIC MEDICINE [address] [place] [address] * Troponin (03/13/2017 8:56 PM) Only the [...] myocardial injury. Specimen Performing Laboratory Plasma specimen [facility] DEPARTMENT OF PATHOLOGY AND GENOMIC MEDICINE [address] [place] [address] * Partial thromboplastin time, activated (03/13/2017 8:56 PM) Only the most recent of 2 results within the time period is included. Component Value Ref Range PTT 25.1 23.0 - 36.0 sec Comment: PTT therapeutic range for unfractionated heparin is 61.0-112.0 seconds which corresponds to Anti-Xa 0.3-0.7 U/ml. Specimen Performing Laboratory Blood [facility] DEPARTMENT OF PATHOLOGY AND [address] [address] * Prothrombin time with INR (03/13/2017 8:56 [...] vein thrombosis/pulmonary embolism. Specimen Performing Laboratory Blood [facility] DEPARTMENT OF PATHOLOGY AND [facility] MEDICINE [address] [place] [address] * CBC with platelet and differential (03/13/2017 [...] (promyelocytes, myelocytes, metamyelocytes) Specimen Performing Laboratory Blood [facility] DEPARTMENT OF PATHOLOGY AND GENOMIC MEDICINE [address] [place] [address] * B natriuretic peptide (03/13/2017 8:56 PM) Only the most recent of 2 results within the time period is included. Component Value Ref Range BNP 8 0 - 100 pg/mL Specimen Performing Laboratory Blood [facility] DEPARTMENT OF PATHOLOGY AND [address] [address] * Lactic acid level (03/13/2017 8:56 PM) Component Value Ref Range Lactic acid 3.1 (H) 0.5 - 2.2 mmol/L Specimen Performing Laboratory Plasma specimen [facility] DEPARTMENT OF PATHOLOGY AND [address] [address] * Creatine kinase, total (CPK) (03/13/2017 8:56 PM) Only the most recent of 2 results within the time period is included. Component Value Ref Range Creatine kinase 121 26 - 192 U/L Specimen Performing Laboratory Plasma specimen [facility] DEPARTMENT PATHOLOGY AND [address] [address] * Comprehensive metabolic panel (03/13/2017 8:56 PM) [...] Protein 6.9 6.3 - 8.3 g/dL Comment: 4.6-7.0 g/dL 1 week 4.4-7.6 g/dL 7 [...] 1.2 mg/dL Specimen Performing Laboratory Plasma specimen [facility] DEPARTMENT OF PATHOLOGY AND GENOMIC MEDICINE [address] [place], [place] [id number] * ECG 12 lead (03/13/2017 8:45 PM) Component Value Ref Range Ventricular rate 81 Atrial rate 81 WA interval 130 QRSD interval 90 QT interval 370 QTC interval 429 P axis 1 62 QRS axis 1 15 T wave axis 51 EKG impression Normal sinus rhythm-Normal ECG-In automated comparison with ECG of 25-MAR-2016 12:32,-Nonspecific T wave abnormality no longer evident in Inferior leads-Nonspecific T wave abnormality no longer evident in Lateral leads- Specimen Performing Laboratory [facility] MUSE [address] [place] [address] * XR Chest 2 Vw (03/13/2017 8:42 PM) Only the most recent of 3 results within the time period is included. Specimen Performing Laboratory [address] [address] Narrative EXAMINATION:XR CHEST 2 VW CLINICAL HISTORY:SHORTNESS OF BREATH COMPARISON:To previous examination from 02/05/2017 IMPRESSION: The cardiomediastinal silhouette is normal in appearance. The lungs are clear. There is no evidence of consolidation, congestion, or pneumothorax. A pleural effusion is not present. Visualized skeletal structures demonstrate no definite abnormality. Negative examination. [facility]-[id number] Procedure Note Interface, Radiology Results Incoming - 03/13/2017 8:46 PM DIRECTOR OF [employer]S EXAMINATION: XR CHEST 2 VW CLINICAL HISTORY: SHORTNESS OF BREATH COMPARISON: To previous examination from 02/05/2017 IMPRESSION: The cardiomediastinal silhouette is normal in appearance. The lungs are clear. There is no evidence of consolidation, congestion, or pneumothorax. A pleural effusion is not present. Visualized skeletal structures demonstrate no definite abnormality. Negative examination. [facility]-[id number] * POC glucose (01/16/2017 9:31 AM) Component Value Ref Range POC glucose 102 (H) 65 - 99 mg/dL Comment: [facility] Notified RN Meter ID: [id number] Netting Weaver: Lizzeth Byrd I Specimen Performing Laboratory [facility] DEPARTMENT OF PATHOLOGY AND GENOMIC MEDICINE [address] [place] [address] * Sputum culture (01/15/2017 11:00 AM) Only the most recent of 2 results within the time period is included. Component Value Ref Range Sputum culture isolate Normal oral tomeka isolated. Comment: Specimen Information Specimen Source: Sputum Specimen Site: Expectorated Specimen Performing Laboratory Sputum - Expectorated [facility] [place] [address] * Gram stain (01/15/2017 11:00 AM) Only the most recent of 2 results within the time period is included. Component Value Ref Range Gram stain isolate Many WBC's Occasional Gram positive cocci in chains Comment: Specimen Information Specimen Source: Sputum Specimen Site: Expectorated Specimen Performing Laboratory Sputum - Expectorated [facility] [place]PARTMENT [place] [address] * Cytomegalovirus by PCR (01/14/2017 4:00 AM) Component Value Ref Range Cytomegalovirus by PCR Not-Detected Not-Detected IU/mL Cytomegalovirus by PCR See link below for PDF Lab ReportComment: Specimen Performing Laboratory [facility] DEPARTMENT OF PATHOLOGY AND [facility] MEDICINE [address] [place] [address] * Thyroid stimulating hormone (01/14/2017 4:00 AM) Component Value Ref Range TSH 1.17 0.27 - 4.20 uIU/mL Specimen Performing Laboratory Plasma specimen [facility] DEPARTMENT OF PATHOLOGY AND GENOMIC MEDICINE [address] [place] [address] * T4, free (01/14/2017 4:00 AM) Component Value Ref Range T4, free 1.4 0.9 - 1.7 ng/dL Specimen Performing Laboratory Plasma specimen [facility] DEPARTMENT OF PATHOLOGY AND GENOMIC MEDICINE [address] [place] [address] * Respiratory pathogen panel (01/14/2017 3:10 AM) [...] Specimen Performing Laboratory Nares - Not specified [facility] DEPARTMENT OF PATHOLOGY AND GENOMIC MEDICINE [address] [place] [address] * CT Chest Wo Contrast (01/13/2017 9:58 PM) Specimen Performing Laboratory [address] [address] Narrative EXAMINATION: CT CHEST WO CONTRAST CLINICAL [...] the anterior mediastinum. Mild/moderate lingular atelectasis. after 08/14/2016 Insurance Payer Benefit Subscriber ID Type Phone Address Plan / Group UHC MEDICARE UNITED[employer] xxxxxxxxx [employer]
--- OUTSIDE RECORDS SUMMARY | 2017-08-15 16:19 | XMS REPORT | Continuity of Care Document ---
Author Author [facility] Organization [facility] Address [address] [place] [address] Phone Unavailable Care Team Providers Care Remedy Developer Name Role Phone NONSTAFF PCP Unavailable Insurance Providers Guarantor Edwina Rich Address [address] [place] [address] Email [email or web address] Un[employer] Medicare Advantage Policy Number [id number] Subscriber's Name Edwina Rich Relationship 18 Self / Same As Patient Advance Directives Directive Response Recorded Date/Time Does the patient have an advance directive? No 07/03/17 5:54pm If yes, is advance directive on file with [facility]? No 07/03/17 5:55pm If not on file with [facility] will patient provide a copy? No 07/03/17 5:55pm Do you have a Directive to Physician? No 07/03/17 5:55pm Do you have a Medical Power of Educational Technology Coordinator? No 07/03/17 5:55pm Do you have an out of hospital Do Not Resuscitate Order? No 07/03/17 5:55pm Do you have any special needs we should be aware of? No 07/03/17 5:55pm Do you have a support person here with you today? Yes 07/03/17 5:55pm Did patient receive Notice of Privacy Practices? Yes 07/03/17 5:55pm Did patient receive patient rights and responsibilities? Yes 07/03/17 5:55pm Problems No problem information available. Medications Current Home Medications Medication Dose Units Route Directions Days Qty Instructions Start Date Albuterol Sulfate (Proair Hfa Inhaler*) 8.5 Gm Inh Social History Smoking Status Start Date Stop Date Never Smoker Hospital Discharge Instructions No hospital discharge instruction information available. Plan of Care Discharge Date 07/03/17 7:35pm Disposition HOME, SELF-CARE Condition at Discharge Improved Instructions/Education Provided Diarrhea - Adult Prescriptions See Medication Section Referrals Paxton Gonzalez Additional Instructions/Education Return to the closest emergency room if symptoms worsen. Drink plenty of fluids (water, powerade, Gatorade etc.) and stay well hydrated. You will know you are hydrated when your urine is clear. Take medication as needed. Fill your prescription immediately after leaving the ER. Clear liquid diet for 6 hours. Clear liquids are those that you can see through: water, powerade, Gatorade chicken soup etc., then advance diet as tolerated. Follow up with your Gastrointestinal doctor and primary care doctor on Wednesday. Functional Status No functional status information available. Allergies, Adverse Reactions, Alerts Allergen Type Severity Reaction Status Last Updated Iodine Allergy Severe vomiting Active 07/03/17 Morphine Allergy Severe hallucinations Active 07/03/17 Meperidine Allergy Severe vomiting Active 07/03/17 Immunizations No immunization information available. Vital Signs Acute Vital Signs Vital Response Date/Time Temperature (Fahrenheit) 97.8 degrees F (97.6 - 99.5) 07/03/2017 7:49pm Pulse Pulse Rate (adult) 73 bpm (60 - 90) 07/03/2017 7:49pm Respiratory Rate 20 bpm (12 - 24) 07/03/2017 7:49pm Blood Pressure 165/75 mm Hg 07/03/2017 7:49pm Height 5 ft 5 in 07/03/2017 5:25pm Weight 200 lb 07/03/2017 5:25pm Body Mass Index 33.3 kg/m^2 07/03/2017 5:25pm Results No relevant diagnostic test, laboratory data and/or discharge summary information available. Procedures No procedure information available. Encounters Encounter Location Arrival/Admit Date Discharge/Depart Date Attending Provider Departed Emergency Room [facility] 07/03/17 5:02pm 7:35pm AMILCAR ROA MD
== END 2017-08-15 16:40 | disposition home or self-care (01) ==
LOC: FSED 16:16
DX: R05 Cough (principal); J06.9 Acute upper respiratory infection, unspecified; J31.0 Chronic rhinitis; J32.9 Chronic sinusitis, unspecified; I51.9 Heart disease, unspecified; J98.4 Other disorders of lung
CPT/HCPCS: 99283

== ENCOUNTER 2018-02-07 04:50 | Emergency (ER) | payer MEDICARE ==
[~2018-02-07] VITALS: Ht 170.2 cm; Wt 90.7 kg
--- OUTSIDE RECORDS SUMMARY | 2018-02-07 04:54 | XMS REPORT | Clinical Summary ---
Author Author [facility] Organization [facility] Address Unknown Phone Unavailable Care Team Providers Care [place] Farmer Name Role Phone Sarah Gonzalez MD PCP Allergies Active Allergy Reactions Severity Noted Date Comments Fish Containing Products 01/20/2018 Iodine And Iodide Hives, Rash Low 01/01/2016 Containing Products Levofloxacin Hives 02/05/2017 Meperidine GI Intolerance, Rash Low 01/01/2016 Morphine Other (See Comments) 01/01/2016 hallucinaton Phenytoin Rash Low 01/01/2016 Phenytoin Sodium Extended Other (See Comments) Medium 01/01/2016 Propoxyphene Hives, Rash, GI Low 01/01/2016 Not allergic to N-Acetaminophen Intolerance acetaminophen. Been taking it w/ no ADR. Per patient. Shellfish Derived 01/20/2018 Current Medications Prescription Sig. Disp. Refills Start End Date Status Date levalbuterol (XOPENEX) Take 1 mL by nebulization 0 01/20/20 Active 0.63 mg/3 mL nebulizer every 4 (four) hours as 17 solution needed for wheezing or shortness of breath. epINEPHrine (EPIPEN) 0.3 Inject 1 Cartridge as Active mg/0.3 mL auto-injector directed as needed. albuterol (PROAIR Inhale 2 puffs every 6 18 g 3 08/14/19 Active HFA,PROVENTIL (six) hours as needed for 18 HFA,VENTOLIN HFA) 90 wheezing or shortness of mcg/actuation inhaler breath. fluticasone (FLONASE) 50 2 sprays by Each Nare Active mcg/actuation nasal spray route daily as needed for rhinitis. nitroglycerin (NITROSTAT) PLACE 1 TABLET UNDER THE 25 tablet 0 12/29/19 Active 0.4 MG SL tablet TONGUE PRIOR TO MEALS 18 DIRECTED pantoprazole (PROTONIX) Take 1 tablet (20 mg 30 tablet 0 01/21/20 02/20/20 Active 20 MG EC tablet total) by mouth daily for 18 18 30 days. ergocalciferol (VITAMIN TAKE 1 CAPSULE BY MOUTH 1 13 capsule 0 02/04/20 Active D2) 50,000 unit capsule TIME A WEEK 18 albuterol (PROAIR Inhale 2 puffs every 6 08/14/19 Discontin HFA,PROVENTIL (six) hours as needed for 18 ued HFA,VENTOLIN HFA) 90 wheezing or shortness of mcg/actuation inhaler breath. budesonide-formoterol Inhale 2 puffs 2 (two) 05/11/19 Discontin (SYMBICORT) 160-4.5 times a day. 18 ued mcg/actuation inhaler dexlansoprazole Take 1 capsule (60 mg 90 capsule 3 01/27/20 05/11/19 Discontin (DEXILANT) 60 mg capsule total) by mouth daily. 17 18 ued nizatidine (AXID) 150 MG Take 1 capsule (150 mg 180 capsule 1 01/27/20 05/11/19 Discontin capsule total) by mouth 2 (two) 17 18 ued times a day. ergocalciferol (VITAMIN Take 1 capsule (50,000 12 capsule 3 01/27/20 10/20/19 Discontin D2) 50,000 unit capsule Units total) by mouth 17 18 ued once a week. predniSONE (DELTASONE) 10 Take 6 tabs x 2 days, 32 tablet 0 02/06/20 02/16/20 mg tablet then 4 tabs daily x 2 17 17 days then 3 tabs daily x 2 days then 2 tabs daily x 2 days then 1 tab daily x 2 days then stop sulfamethoxazole-trimetho Take 1 tablet by mouth 2 20 tablet 0 02/06/20 02/16/20 prim (BACTRIM DS) 800-160 (two) times [...] capsule (60 mg 180 capsule 0 05/21/19 05/21/19 Discontin (DEXILANT) 60 mg capsule total) by mouth 2 (two) 18 18 ued times a day for 90 days. dexlansoprazole Take 1 capsule (60 mg 90 capsule 0 05/21/19 06/21/19 (DEXILANT) 60 mg capsule total) by mouth daily for 18 18 30 days. ergocalciferol (VITAMIN . 05/29/19 06/18/19 Discontin D2) 50,000 unit capsule 16 18 ued epINEPHrine (EPIPEN . 05/29/19 06/18/19 Discontin 2-ALFRED) 0.3 mg/0.3 mL 16 18 ued auto-injector ipratropium (ATROVENT . 05/07/19 10/20/19 Discontin HFA) 17 mcg/actuation 16 18 ued inhaler benzonatate (TESSALON) benzonatate 100 mg 10/20/19 Discontin 100 MG capsule capsule 18 ued fluticasone (FLONASE) 50 2 sprays (100 mcg total) 16 g 11 08/19/19 10/20/19 Discontin mcg/actuation nasal spray by Each Nare route daily. 18 18 ued nebulizers misc 10/20/19 Discontin 18 ued amoxicillin-pot Take 1 tablet by mouth 2 10/20/19 Discontin clavulanate (AUGMENTIN) (two) times a day. 18 ued 875-125 mg per tablet loratadine (CLARITIN) 10 Take 10 mg by mouth 10/20/19 Discontin mg tablet daily. 18 ued nitroglycerin (NITROSTAT) Pt to take 1 SL prior to 20 tablet 0 09/09/19 10/10/19 Discontin 0.4 MG SL tablet meals 18 18 ued NITROSTAT 0.[address] 1 TABLET UNDER THE 25 tablet 0 10/12/19 10/20/19 Discontin tablet TONGUE PRIOR TO MEALS 18 18 ued DIRECTED dicyclomine (BENTYL) 20 Take 1 tablet (20 mg 60 tablet 0 10/20/19 11/19/19 mg tablet total) by mouth 2 (two) 18 18 times a day for 30 days. ondansetron ODT (ZOFRAN Take 1 tablet (8 mg 9 tablet 0 10/20/19 11/19/19 ODT) 8 MG disintegrating total) by mouth every 8 18 18 tablet (eight) hours as needed for nausea or vomiting for up to 30 days. metoclopramide (REGLAN) Take 1 tablet (10 mg 30 tablet 0 10/20/19 11/19/19 10 MG tablet total) by mouth every 6 18 18 (six) hours for 30 days. nitroglycerin (NITROSTAT) Place 0.4 mg under the 01/11/20 Discontin 0.4 MG SL tablet tongue every 5 (five) 18 ued minutes as needed for chest pain. ergocalciferol (VITAMIN Take 50,000 Units by 02/03/20 Discontin D2) 50,000 unit capsule mouth once a week. Wednesday 18 ued nitroglycerin (NITROSTAT) PLACE 1 TABLET UNDER THE 25 tablet 0 12/09/19 12/29/19 Discontin 0.4 MG SL tablet TONGUE PRIOR TO MEALS 18 18 ued DIRECTED fluconazole (DIFLUCAN) 10 Take 20 mL (200 mg total) 40 mL 0 12/19/19 12/21/19 mg/mL suspension by mouth daily for 2 18 18 days. HYDROcodone-acetaminophen Take 10 mL by mouth every 300 mL 0 01/21/20 01/28/20 (HYCET) 2.5-108.3 mg/5 mL 6 (six) hours as needed 18 18 solution for moderate pain for up to 7 days. Max Daily Amount: 40 mL traMADol (ULTRAM) 50 mg Take 1 tablet (50 mg 25 tablet 0 01/22/20 02/05/20 tabletIndications: total) by mouth every 6 18 18 Postoperative pain (six) hours as needed for moderate pain for up to 14 days. ergocalciferol (VITAMIN TAKE 1 CAPSULE BY MOUTH 1 12 capsule 0 02/03/20 02/03/20 Discontin D2) 50,000 unit capsule TIME A WEEK 18 18 ued Active Problems Problem Noted Date Surgery follow-up examination 02/02/2018 Last Assessment & Plan: The patient is doing well status post POEM. She is doing well with liquids. She will be advanced to a soft pured diet. The patient will return to clinic in 3 weeks for additional follow-up. Achalasia 01/19/2018 Achalasia of esophagus 05/28/2017 Last Assessment & Plan: The patient has type III achalasia. The patient will be scheduled for a POEM procedure. The procedure was discussed in detail. Risks and benefits were discussed with the patient, and the patient agree to proceed. The patient will be given oral Diflucan. 2 days prior to surgery. The patient was told to be on a liquid diet, 4 days prior to surgery. Severe persistent asthma with exacerbation 01/13/2017 Patellar sleeve fracture of left knee 01/01/2016 Acute upper respiratory infection 07/13/2015 Asthma 07/13/2015 GERD (gastroesophageal reflux disease) 07/13/2015 Nausea and vomiting 07/13/2015 Encounters Date Type Specialty Care Team Description 02/02/2018 Refill Internal Medicine Sarah Gonzalez MD 02/02/2018 Refill Internal Medicine Sarah Gonzalez MD 01/27/2018 Office Visit General Surgery Deep Torres MD Surgery follow-up examination (Primary Dx) 01/21/2018 Telephone General Surgery Purvi Corley RN 01/21/2018 Orders Only General Surgery Purvi Corley RN Postoperative pain (Primary Dx) 01/19/2018 [facility] General Surgery Deep Torres MD - Encounter 01/20/2018 01/19/2018 Procedure Pass General Surgery 01/19/2018 Surgery General Surgery Deep Torres MD PERORAL ENDOSCOPIC MYOTOMY 01/10/2018 Pre-Admit Pre-Admission Testing Deep Torres MD Preop testing (Primary Testing Dx) Appointment 01/09/2018 Anesthesia General Surgery Corley Arthur Event 01/05/2018 Transcribe General Surgery Waqar Parra MA Achalasia (Primary Dx) Orders 12/28/2017 Refill GastroenterSteve Brothers MD 12/19/2017 Documentation Internal Medicine Sarah Gonzalez MD BRCA TESTING NEGATIVE 12/16/2017 Office Visit General Surgery Deep Torres MD Achalasia of esophagus (Primary Dx) 12/14/2017 Telephone GastroenterSteve Brothers MD 12/07/2017 Refill GastroenterSteve Brothers MD 11/23/2017 Documentation Family Medicine Sarah Gonzalez MD 11/03/2017 Telephone Gastroenterology Lawanda Guo RN 10/28/2017 Telephone Gastroenterology Rochelle Siu MA 10/19/2017 Emergency Emergency Medicine Samir Reza MD Abdominal pain, acute, generalized (Primary Dx); Intractable vomiting with nausea, unspecified vomiting type; Dehydration; Leukocytosis, unspecified type; Nephrolithiasis; Enteritis; Achalasia; Gastroesophageal reflux disease with esophagitis; Hiatal hernia; Age-related osteoporosis without current pathological fracture; YANIRA (obstructive sleep apnea); Fatty liver 10/09/2017 Refill GastroenterSteve Brothers MD 09/10/2017 Refill Steve Song MD 09/08/2017 Telephone Gastroenterology Lawanda Guo, THOMPSON 08/30/2017 [facility] General Surgery Deep Torres MD Encounter 08/30/2017 Telephone GastroenterLawanda Pang RN 08/30/2017 Procedure Pass General Surgery 08/30/2017 Surgery General Surgery Deep Torres MD Canceled LAPAROSCOPIC HELLER MYOTOMY W/ LEXUS FUNDOPLICATION 08/18/2017 Pre-Admit Pre-Admission Testing Deep Torres MD Preop testing (Primary Testing Dx); Appointment Achalasia 08/18/2017 Office Visit Internal Medicine Sarah Gonzalez MD Viral upper respiratory tract infection (Primary Dx); Nasal congestion 08/18/2017 Anesthesia General Surgery Leslie Barrios NP 08/13/2017 Transcribe General Surgery Waqar Parra MA Achalasia (Primary Dx) Orders 08/12/2017 Telephone Internal Medicine Sarah Gonzalez MD 07/23/2017 [facility] Gastroenterology Deep Torres MD Encounter 07/23/2017 Procedure Pass Gastroenterology 07/23/2017 Surgery Gastroenterology Deep Torres MD TRENT REMOVAL (48 HOURS) 07/21/2017 Procedure Pass Gastroenterology 07/16/2017 Office Visit Gastroenterology Steve Frank MD Achalasia and cardiospasm (Primary Dx) 07/14/2017 Telephone Gastroenterology Steve Frank MD 06/25/2017 Telephone Gastroenterology Lawanda Guo RN [...] Orders Only General Surgery Deep Torres MD Pre-diabetes (Primary Dx) 05/28/2017 Office Visit Gastroenterology Steve Frank MD Gastroesophageal reflux disease without esophagitis (Primary Dx); Achalasia of esophagus 05/27/2017 Telephone Gastroenterology Lawanda Guo RN 05/26/2017 [facility] Radiology Steve Frank MD Achalasia; Encounter Gastroesophageal reflux disease with esophagitis 05/24/2017 Telephone GastroenterLawanda Pang RN 05/24/2017 Telephone Gastroenterology Rochelle Siu MA 05/21/2017 Orders Only GastroenterRochelle Lanza Achalasia (Primary Dx); BRISEIDA Gastroesophageal reflux disease with esophagitis 05/20/2017 Telephone GastroenterLawanda Pang RN 05/19/2017 Telephone Gastroenterology Steve Frank MD 05/19/2017 Procedure Pass Gastroenterology 05/19/2017 Surgery GastroenterSteve Brothers MD ESOPHAGEAL MANOMETRY WITH IMPEDANCE PROBE 24 HOUR RETURN 05/18/2017 Hospital Gastroenterology Steve Frank MD Encounter 05/18/2017 Procedure Pass Gastroenterology 05/18/2017 Surgery GastroenterSteve Brothers MD ESOPHAGEAL MANOMETRY WITH IMPEDANCE PROBE 05/11/2017 Office Visit Internal Medicine Sarah Gonzalez MD Routine general medical examination at a health care facility (Primary Dx); Hyperglycemia; IFG (impaired fasting glucose); Vitamin D deficiency; Gastroesophageal reflux disease with esophagitis; Recurrent pneumonia; Thyroid nodule; Elevated blood pressure reading without diagnosis of hypertension; Immunization due; Other obesity due to excess calories ; Imbalance 05/07/2017 [facility] Gastroenterology Steve Frank MD Encounter 04/30/2017 Telephone Gastroenterology Rochelle Siu MA 04/29/2017 Lab Lab Steve Frank MD 04/29/2017 Documentation Gastroenterology Steve Frank MD 04/27/2017 Telephone Gastroenterology Steve Frank MD 04/22/2017 [facility] Radiology Steve Frank MD Presbyesophagus; Encounter At [...] Ramesh Carpio, Chronic coughing (Primary DO Dx) after 02/06/2017 Immunizations Name Dates Previously Given Next Due FLUCELVAX QUAD PF (0.5mL 01/16/2017 syringe) Influenza Trivalent 01/10/2015 Pneumococcal Conjugate 05/11/2017 13-Valent Pneumococcal 04/12/2011 Polysaccharide Pneumococcal, Unspecified 01/10/2014 Zoster 04/12/2013 Family History Medical History Relation Name Comments Hypertension Brother Jayy Morillo extremely high BP Heart murmur Daughter Mitral valve prolapse Daughter Anesthesia problems Father Abeba Difficulty waking [place] COPD Father Sennorm Yisel Heart attack Father Sennorm [place] Heart disease Father Senonrm multiple heart attacks [place] Stroke Father Abeba paralysis-below neck [place] Breast cancer Maternal Aunt Colon cancer Maternal Delta caused Grandfather Saulters Heart disease Maternal Delta multiple heart attacks Grandfather Saulters Stroke Maternal Purvi caused Grandmother Saulters Varicose Veins Maternal Purvi Had surgeries for them Grandmother Saulters Colon cancer Mother Brittany [place] Hypertension Mother Brittany Kenny extremely high BP Stroke Paternal Kell Yisel Caused Grandmother Anesthesia problems Son Lorenzo Nitrous oxide seizure John Heart murmur Son Lorenzo Rich No Known Problems Son Relation Name Status Comments Brother Jayy [place] Alive Brother Alive Daughter Alive Father Abeba [place]isel Maternal Aunt Maternal Grandfather Delta Saulters Maternal Grandmother Purvi [place] Alive Mother Brittany [place] Paternal Grandfather Paternal Grandmother Kell Yisel Alive Son Lorenzo Rich Son Alive Social History Tobacco Use Types Packs/Day Years Used Date Never Smoker Smokeless Tobacco: Never Used Alcohol Use Drinks/Week oz/Week Comments No Sex Assigned at Date Recorded Not on file Last Filed Vital Signs Vital Sign Reading Time Taken Blood Pressure 126/64 01/27/2018 1:22 PM CDT Pulse 67 01/27/2018 1:22 PM CDT Temperature 36.4 C (97.6 F) 01/27/2018 1:22 PM CDT Respiratory Rate 16 01/27/2018 1:22 PM CDT Oxygen Saturation 96% 01/20/2018 3:37 PM CDT Inhaled Oxygen - - Concentration Weight 98.9 kg (218 lb) 01/27/2018 1:22 PM CDT Height 170.2 cm (5' 7") 01/27/2018 1:22 PM CDT Body Mass Index 34.14 01/27/2018 1:22 PM CDT Plan of Treatment Date Type Specialty Care Team Description 02/16/2018 Office Visit Gastroenterology Steve Frank MD [address] [phone] 02/17/2018 Office Visit General Surgery Deep Torres MD [address] [facility] [address] [place], [place] [id number] 03/07/2018 Office Visit Internal Medicine Sarah Gonzalez MD [address] [facility] [address] [place], [place] [id number] Health Maintenance Due Date Last Done Comments BREAST CANCER SCREENING 10/19/1997 SHINGRIX VACCINE (#1) 10/19/1997 INFLUENZA VACCINE 11/10/2017 01/16/2017, 02/10/2015, 01/10/2015, Additional history exists COLON CANCER SCREENING 04/14/2019 04/14/2014 PNEUMOCOCCAL Completed 04/12/2011 POLYSACCHARIDE VACCINE AGE 65 AND OVER ZOSTER VACCINE Completed 04/12/2013 PNEUMOCOCCAL-13 Completed 05/11/2017, 04/12/2013 Implants Implanted Type Area Coal Hauler Device Expiration Model / Identifier Date Serial / Lot Catheter Endoflip 8cm Measurement - Surgical N/A: N/A CROSPON EF 325N / [id number] Implants; / Implanted: Qty: 1 on 01/19/2018 by [employer]; Deep Torres MD Extenders; Surgical Wires Clip Resolution 360 Mr Cndtl 235cm Surgical N/A: N/A BS ENDOSCOPY [id number] 2.8mm 11mm Opening - [id number] Implants; / Implanted: Qty: 2 on 01/19/2018 by [employer]; / Deep Torres MD Extenders; Surgical Wires Clip Resolution 360 Mr Cndtl 235cm Surgical N/A: N/A BSC ENDOSCOPY [id number] 2.8mm 11mm Opening - [id number] Implants; / Implanted: Qty: 1 on 01/19/2018 by [employer]; / Deep Torres MD Extenders; Surgical Wires Clip Resolution 360 Mr Cndtl 235cm Surgical N/A: N/A BSC ENDOSCOPY [id number] 2.8mm 11mm Opening - [id number] Implants; / Implanted: Qty: 1 on 01/19/2018 by [employer]; / Deep Torres MD Extenders; Surgical Wires Clip Resolution 360 Mr Cndtl 235cm Surgical N/A: N/A BSC ENDOSCOPY [id number] 2.8mm 11mm Opening - [id number] Implants; / Implanted: Qty: 2 on 01/19/2018 by [employer]; / Deep Torres MD Extenders; Surgical Wires Clip Resolution 360 Mr Cndtl 235cm Surgical N/A: N/A [facility] ENDOSCOPY [id number] 2.8mm 11mm Opening - [id number] Implants; / Implanted: 01/19/2018 (Quantity not [employer]; / on file) Extenders; Surgical Wires Procedures Procedure Name Priority Date/Time Associated Diagnosis Comments FL UGI W KUB Routine 01/20/2018 Results for this 2:08 PM CDT procedure are in the results section. HC COMPLETE BLD COUNT Routine 01/20/2018 Results for this W/AUTO DIFF 4:25 AM CDT procedure are in the results section. ESTIMATED GFR Routine 01/20/2018 Results for this 4:00 AM CDT procedure are in the results section. BASIC METABOLIC PANEL Routine 01/20/2018 Results for this 4:00 AM CDT procedure are in the results section. XR CHEST 1 VW PORTABLE STAT 01/19/2018 Results for this 5:18 PM CDT procedure are in the results section. ESTIMATED GFR Routine 01/19/2018 Results for this 5:13 PM CDT procedure are in the results section. BASIC METABOLIC PANEL Routine 01/19/2018 Results for this 5:13 PM CDT procedure are in the results section. HC COMPLETE BLD COUNT Routine 01/19/2018 Results for this W/AUTO DIFF 5:13 PM CDT procedure are in the results section. GLUCOSE LEVEL, SYRINGE STAT 01/19/2018 Results for this 3:33 PM CDT procedure are in the results section. LACTIC ACID, SYRINGE STAT 01/19/2018 Results for this 3:33 PM CDT procedure are in the results section. IONIZED CALCIUM, ARTERIAL STAT 01/19/2018 Results for this 3:33 PM CDT procedure are in the results section. HEMOGLOBIN, SYRINGE STAT 01/19/2018 Results for this 3:33 PM CDT procedure are in the results section. POTASSIUM, SYRINGE STAT 01/19/2018 Results for this 3:33 PM CDT procedure are in the results section. SODIUM LEVEL, SYRINGE STAT 01/19/2018 Results for this 3:33 PM CDT procedure are in the results section. ARTERIAL BLOOD GAS, STAT 01/19/2018 Results for this CORRECTED 3:33 PM CDT procedure are in the results section. ARTERIAL LINE Routine 01/19/2018 2:35 PM CDT Procedure Note - Rajan Corley CRNA - 01/19/2018 2:35 PM CDT Arterial line Performed by: RAJAN CORLEY Authorized by: ROCHELLE BERGERON Patient Location: OR Start Time: 01/19/2018 2:00 PM End Time: 01/19/2018 2:10 PM Staff: Anesthesio logist: CHANEL VAZQUEZ Performed by: Anesthesio logispanda Indication s: Indication s: multiple ABGs and hemodynami c monitoring Anesthesia : Anesthesia : General Procedure Details: Arterial Line placement: Placed post induction Line placement site: Radial Line placement side: Right Arterial line gauge: 20 G Number of attempts: 1 Ultrasound guidance used: No Post-proce dure: Post-proce dure: Sterile dressing applied Post procedure circulatio n, sensation, movement: Unable to assess Patient tolerance: Patient tolerated the procedure well with no immediate complicati ons GLUCOSE LEVEL, SYRINGE STAT 01/19/2018 Results for this 2:12 PM CDT procedure are in the results section. IONIZED CALCIUM, ARTERIAL STAT 01/19/2018 Results for this 2:12 PM CDT procedure are in the results section. HEMOGLOBIN, SYRINGE STAT 01/19/2018 Results for this 2:12 PM CDT procedure are in the results section. SODIUM LEVEL, SYRINGE STAT 01/19/2018 Results for this 2:12 PM CDT procedure are in the results section. POTASSIUM, SYRINGE STAT 01/19/2018 Results for this 2:12 PM CDT procedure are in the results section. ARTERIAL BLOOD GAS, STAT 01/19/2018 Results for this CORRECTED 2:12 PM CDT procedure are in the results section. LACTIC ACID, SYRINGE STAT 01/19/2018 Results for this 2:12 PM CDT procedure are in the results section. GA AN ELECTIVE Routine 01/19/2018 ENDOTRACHEAL AIRWAY 10:53 AM CDT Procedure Note - Rajan Corley CRNA - 01/19/2018 10:53 AM CDT Airway Date/Time: 01/19/2018 10:29 AM Performed by: RAJAN CORLEY Authorized by: ROCHELLE BERGERON Location: OR Urgency: Elective Difficult Airway: No Resident/C RNA/AA: RAJAN CORLEY Preoxygena tania with 100% O2: Yes C-spine Precaution s Maintained Throughout : No Mask Ventilatio n: Assisted mask Final Airway Type: Endotrache al airway Final Endotrache al Airway: ETT Cuffed: Yes Technique Used: Direct laryngosco py Devices/Me thods Used in Placement: Intubatin g stylet Insertion Site: Oral Blade Type: Mejia Laryngosco pe Blade/Vide olaryngosc ope Blade Size: 2 ETT Size (mm): 7.0 Cuff at minimum occlusion pressure: Yes Measured from: Lips ETT to Lips (cm): 21 Placement Verified by: CO2 detection, direct visualizat ion and equal breath sounds Laryngosco pic view: Grade IIa - partial view of glottis Rapid Sequence Induction (RSI): No Modified RSI: No Number of Attempts at Approach: 1 MYOTOMY, ESOPHAGUS, 01/19/2018 Achalasia PERORAL, ENDOSCOPIC 9:10 AM CDT Case Notes REQ 1000 START, POSSIBLE EXTENDED RECOVERY, EST 3 HRS Special Needs REQ 1000 START, POSSIBLE EXTENDED RECOVERY, EST 3 HRS ESTIMATED GFR Routine 01/10/2018 Results for this 2:51 PM CDT procedure are in the results section. TYPE AND SCREEN Routine 01/10/2018 Preop testing Results for this 2:51 PM CDT procedure are in the results section. COMPREHENSIVE METABOLIC Routine 01/10/2018 Preop testing Results for this PANEL 2:51 PM CDT procedure are in the results section. HC COMPLETE BLD COUNT Routine 01/10/2018 Preop testing Results for this W/AUTO DIFF 2:51 PM CDT procedure are in the results section. LACTIC ACID LEVEL, SEPSIS Timed 10/19/2017 Results for this - NOW AND REPEAT 2X EVERY 11:00 AM CDT procedure are in the 3 HOURS results section. URINALYSIS SCREEN AND STAT 10/19/2017 Results for this MICROSCOPY, WITH REFLEX 11:00 AM CDT procedure are in the TO CULTURE results section. URINE CULTURE STAT 10/19/2017 Results for this 11:00 AM CDT procedure are in the results section. US GALLBLADDER STAT 10/19/2017 Results for this 7:46 AM CDT procedure are in the results section. CONSULT TO SEPSIS Routine 10/19/2017 Results for this RESPONSE TEAM 4:06 AM CDT procedure are in the results section. CT ABDOMEN PELVIS WO STAT 10/19/2017 Results for this CONTRAST 3:04 AM CDT procedure are in the results section. LIPASE LEVEL STAT 10/19/2017 Results for this 2:02 AM CDT procedure are in the results section. ZZESTIMATED GFR STAT 10/19/2017 Results for this 2:02 AM CDT procedure are in the results section. COMPREHENSIVE METABOLIC STAT 10/19/2017 Results for this PANEL 2:02 AM CDT procedure are in the results section. HC COMPLETE BLD COUNT STAT 10/19/2017 Results for this W/AUTO DIFF 2:02 AM CDT procedure are in the results section. CBC HEMOGRAM Routine 08/18/2017 Achalasia Results for this 3:40 PM CDT procedure are in the results section. ECG PRE/POST OP Routine 08/18/2017 Preop testing Results for this 3:31 PM CDT procedure are in the results section. ZZESTIMATED GFR Routine 08/18/2017 Results for this 2:29 PM CDT procedure are in the results section. BASIC METABOLIC PANEL Routine 08/18/2017 Achalasia Results for this 2:29 PM CDT procedure are in the results section. HEMOGLOBIN A1C Routine 06/17/2017 Pre-diabetes Results for this 12:00 AM AGENCY APPOINTMENTS SUPERVISOR procedure are in the results section. FL ESOPHAGRAM COMPLETE Routine 05/26/2017 Achalasia Results for this 12:54 PM AGENCY APPOINTMENTS SUPERVISOR Gastroesophageal reflux procedure are in the disease with esophagitis results section. ESOPHAGEAL MANOMETRY WITH 05/18/2017 Chronic GERD IMPEDANCE PROBE 9:00 AM AGENCY APPOINTMENTS SUPERVISOR LIPID PANEL Routine 05/11/2017 Other obesity due to Results for this 1:04 PM AGENCY APPOINTMENTS SUPERVISOR excess calories procedure are in the Routine general medical results section. examination at a health care facility Hyperglycemia Thyroid nodule Elevated blood pressure reading without diagnosis of hypertension IFG (impaired fasting glucose) VITAMIN D 25 HYDROXY Routine 05/11/2017 Routine general medical Results for this LEVEL 1:04 PM AGENCY APPOINTMENTS SUPERVISOR examination at a health procedure are in the care facility results section. Vitamin D deficiency BASIC METABOLIC PANEL Routine 05/11/2017 Routine general medical Results for this 1:04 PM AGENCY APPOINTMENTS SUPERVISOR examination at a health procedure are in the care facility results section. Elevated blood pressure reading without diagnosis of hypertension IFG (impaired fasting glucose) HEMOGLOBIN A1C Routine 05/11/2017 Routine general medical Results for this 1:04 PM AGENCY APPOINTMENTS SUPERVISOR examination at a health procedure are in the care facility results section. Hyperglycemia IFG (impaired fasting glucose) SURGICAL PATHOLOGY Routine 04/29/2017 Results for this REQUEST 4:57 PM AGENCY APPOINTMENTS SUPERVISOR procedure are in the results section. 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 disease, esophagitis presence not specified ECG ED PRELIMINARY Routine 03/14/2017 Results for this INTERPRETATION 5:56 AM AGENCY APPOINTMENTS SUPERVISOR procedure are in the results section. ZZESTIMATED GFR STAT 03/13/2017 Results for this 8:56 PM AGENCY APPOINTMENTS SUPERVISOR procedure are in the results section. B NATRIURETIC PEPTIDE STAT 03/13/2017 Results for this 8:56 PM AGENCY APPOINTMENTS SUPERVISOR procedure are in the results section. TROPONIN STAT 03/13/2017 Results for this 8:56 PM AGENCY APPOINTMENTS SUPERVISOR procedure are in the results section. CREATINE KINASE, TOTAL STAT 03/13/2017 Results for this (CPK) 8:56 PM AGENCY APPOINTMENTS SUPERVISOR procedure are in the results section. LACTIC ACID LEVEL STAT 03/13/2017 Results for this 8:56 PM AGENCY APPOINTMENTS SUPERVISOR procedure are in the results section. COMPREHENSIVE METABOLIC STAT 03/13/2017 Results for this PANEL 8:56 PM AGENCY APPOINTMENTS SUPERVISOR procedure are in the results section. PARTIAL THROMBOPLASTIN STAT 03/13/2017 Results for this TIME (PTT) 8:56 PM AGENCY APPOINTMENTS SUPERVISOR procedure are in the results section. PROTHROMBIN TIME WITH INR STAT 03/13/2017 Results for this 8:56 PM AGENCY APPOINTMENTS SUPERVISOR procedure are in the results section. HC COMPLETE BLD COUNT STAT 03/13/2017 Results for this W/AUTO DIFF 8:56 PM AGENCY APPOINTMENTS SUPERVISOR procedure are in the results section. ECG 12-LEAD STAT 03/13/2017 Results for this 8:45 PM AGENCY APPOINTMENTS SUPERVISOR procedure are in the results section. XR CHEST 2 VW STAT 03/13/2017 Results for this 8:42 PM AGENCY APPOINTMENTS SUPERVISOR procedure are in the results section. after 02/06/2017 Results * FL UGI W KUB (01/20/2018 2:08 PM) Narrative Performed At EXAMINATION: FL UGI W KUB RADIANT INDICATION: s p POEM surgery COMPARISON: Abdominal CT 10/19/2017. FLUOROSCOPY TIME: 1 minute. 19 images. IMPRESSION: The patient was given water-soluble contrast material, which she swallowed without difficulty. Numerous endoclips are noted, consistent with recent POEM procedure. There is no evidence of leak. The gastroesophageal junction is patent. Significant decreased residual contrast material within the esophagus compared to the prior esophagram. There is some retrograde escape from the contrast column. Limited evaluation of the stomach and duodenum was unremarkable. Small bilateral pleural effusions. Scattered atelectasis. Spondylosis. Partially visualized lumbar fusion hardware. [facility]-[id number] Procedure Note Hm Interface, Radiology Results Incoming - 01/20/2018 2:55 PM CDT EXAMINATION: FL UGI W KUB INDICATION: s p POEM surgery COMPARISON: Abdominal CT 10/19/2017. FLUOROSCOPY TIME: 1 minute. 19 images. IMPRESSION: The patient was given water-soluble contrast material, which she swallowed without difficulty. Numerous endoclips are noted, consistent with recent POEM procedure. There is no evidence of leak. The gastroesophageal junction is patent. Significant decreased residual contrast material within the esophagus compared to the prior esophagram. There is some retrograde escape from the contrast column. Limited evaluation of the stomach and duodenum was unremarkable. Small bilateral pleural effusions. Scattered atelectasis. Spondylosis. Partially visualized lumbar fusion hardware. [id number] Performing Organization Address City/State/Zipcode Phone Number [facility] [address] [place] [address] * CBC with platelet and differential (01/20/2018 4:25 AM) Only the most recent of 5 results within the time period is included. WBC 15.49 (H) 4.50 - 11.00 k/uL [facility] DEPARTMENT OF PATHOLOGY AND GENOMIC MEDICINE RBC 3.79 (L) 4.20 - 5.50 m/uL [facility] DEPARTMENT OF PATHOLOGY AND GENOMIC MEDICINE HGB 12.1 12.0 - 16.0 g/dL [facility] DEPARTMENT OF PATHOLOGY AND GENOMIC MEDICINE HCT 37.7 37.0 - 47.0 % [facility] DEPARTMENT OF PATHOLOGY AND GENOMIC MEDICINE MCV 99.5 82.0 - 100.0 fL [facility] DEPARTMENT OF PATHOLOGY AND GENOMIC MEDICINE MCH 31.9 27.0 - 34.0 pg [facility] DEPARTMENT OF PATHOLOGY AND GENOMIC MEDICINE MCHC 32.1 31.0 - 37.0 g/dL [facility] DEPARTMENT OF PATHOLOGY AND GENOMIC MEDICINE RDW - SD 48.4 37.0 - 55.0 fL [facility] DEPARTMENT OF PATHOLOGY AND GENOMIC MEDICINE MPV 11.1 8.8 - 13.2 fL [facility] DEPARTMENT OF PATHOLOGY AND GENOMIC MEDICINE Platelet count 222 150 - 400 k/uL [facility] DEPARTMENT OF PATHOLOGY AND GENOMIC MEDICINE Nucleated RBC 0.00 /100 WBC [facility] DEPARTMENT OF PATHOLOGY AND GENOMIC MEDICINE Neutrophils 81.8 (H) 39.0 - 69.0 % [facility] DEPARTMENT OF PATHOLOGY AND GENOMIC MEDICINE Lymphocytes 11.2 (L) 25.0 - 45.0 % [facility] DEPARTMENT OF PATHOLOGY AND GENOMIC MEDICINE Monocytes 6.3 0.0 - 10.0 % [facility] DEPARTMENT OF PATHOLOGY AND GENOMIC MEDICINE Eosinophils 0.0 0.0 - 5.0 % [facility] DEPARTMENT OF PATHOLOGY AND GENOMIC MEDICINE Basophils 0.1 0.0 - 1.0 % [facility] DEPARTMENT OF PATHOLOGY AND GENOMIC MEDICINE Immature granulocytes 0.6Comment: "Immature 0.0 - 1.0 % [facility] DEPARTMENT OF granulocytes" (promyelocytes, PATHOLOGY AND myelocytes, metamyelocytes) GENOMIC MEDICINE Specimen Blood Performing Organization Address City/[facility]/[place] [address] PATHOLOGY AND [facility] * Estimated GFR (01/20/2018 4:00 AM) Only the most recent of 3 results within the time period is included. Estimated GFR 89 mL/min/1.73 m2 [facility] DEPARTMENT OF Comment: PATHOLOGY AND [employer] GENOMIC MEDICINE rpretation G1 >=90 Normal or high G2 60-89Mildly decreased [id number] Mildly to moderately decreased [id number] Moderately to severely decreased G4 15-29Severely decreased G5 <15Kidney failure The eGFR was calculated using the Chronic Kidney Disease Epidemiology Collaboration (CKD-EPI) equation. Interpretation is based on recommendations of the National Kidney Foundation-Kidney Disease Outcomes Quality Initiative (NKF-KDOQI) published in 2014. Specimen Plasma specimen Performing Organization Address City/[facility]/Zipcode Phone Number [place] [phone] [place] [address] PATHOLOGY AND [facility] MEDICINE * Basic metabolic panel (01/20/2018 4:00 AM) Only the most recent of 4 results within the time period is included. Sodium 143 135 - 148 mEq/L [facility] DEPARTMENT OF PATHOLOGY AND GENOMIC MEDICINE Potassium 4.5 3.5 - 5.0 mEq/L [facility] DEPARTMENT OF PATHOLOGY AND GENOMIC MEDICINE Chloride 105 98 - 112 mEq/L [facility] DEPARTMENT OF PATHOLOGY AND GENOMIC MEDICINE CO2 25 24 - 31 mEq/L [facility] DEPARTMENT OF PATHOLOGY AND GENOMIC MEDICINE Anion gap 13@ANIO 7 - 15 mEq/L [facility] DEPARTMENT OF PATHOLOGY AND GENOMIC MEDICINE BUN 8 8 - 23 mg/dL [facility] DEPARTMENT OF PATHOLOGY AND GENOMIC MEDICINE Creatinine 0.66 0.50 - 0.90 mg/dL [facility] DEPARTMENT OF PATHOLOGY AND GENOMIC MEDICINE Glucose 131 (H) 65 - 99 mg/dL [facility] DEPARTMENT OF PATHOLOGY AND GENOMIC MEDICINE Calcium 9.4 8.8 - 10.2 mg/dL [facility] DEPARTMENT OF PATHOLOGY AND GENOMIC MEDICINE Specimen Plasma specimen Performing Organization Address City/[facility] [place] [address] PATHOLOGY AND GENOMIC MEDICINE * XR Chest 1 Vw Portable (01/19/2018 5:18 PM) Narrative Performed At EXAMINATION:XR CHEST 1 VW PORTABLE RADIANT CLINICAL HISTORY:post op procedure COMPARISON:March 13, 2017 chest IMPRESSION: Hypoinflation of the lungs with patchy bibasilar atelectasis No focal infiltrate. No congestion or effusion. No pneumothorax The Cardiomediastinal silhouette is normal in size. Mild vascular ectasia and atherosclerosis Radiopaque densities project over the midline at T8 level Single view chest [id number] Procedure Note Interface, Radiology Results Incoming - 01/19/2018 5:28 PM CDT EXAMINATION: XR CHEST 1 VW PORTABLE CLINICAL HISTORY: post op procedure COMPARISON: March 13, 2017 chest IMPRESSION: Hypoinflation of the lungs with patchy bibasilar atelectasis No focal infiltrate. No congestion or effusion. No pneumothorax The Cardiomediastinal silhouette is normal in size. Mild vascular ectasia and atherosclerosis Radiopaque densities project over the midline at T8 level Single view chest [id number] Performing Organization Address [facility] [place] [address] * Sodium level, syringe (01/19/2018 3:33 PM) Only the most recent of 2 results within the time period is included. Sodium, syringe 144 135 - 148 mEq/L [facility] DEPARTMENT OF PATHOLOGY AND GENOMIC MEDICINE Specimen Blood Performing Organization Address City/[facility] Phone Number [facility] [place] [address] PATHOLOGY AND GENOMIC MEDICINE * Potassium, syringe (01/19/2018 3:33 PM) Only the most recent of 2 results within the time period is included. Potassium, syringe 3.7 3.5 - 5.0 mEq/L [facility] DEPARTMENT OF PATHOLOGY AND GENOMIC MEDICINE Specimen Blood Performing Organization Address City/[facility] Phone Number [facility] [place] [address] PATHOLOGY AND GENOMIC MEDICINE * Lactic acid, syringe (01/19/2018 3:33 PM) Only the most recent of 2 results within the time period is included. Lactic acid, syringe 3.3 (H) 0.5 - 2.2 mmol/L [facility] DEPARTMENT OF PATHOLOGY AND GENOMIC MEDICINE Specimen Blood Performing Organization Address City/[facility] [place] [address] PATHOLOGY AND GENOMIC MEDICINE * Ionized calcium, arterial (01/19/2018 3:33 PM) Only the most recent of 2 results within the time period is included. Ionized calcium, arterial 1.21 1.11 - 1.32 mmol/L [facility] DEPARTMENT OF PATHOLOGY AND GENOMIC MEDICINE Specimen Blood Performing Organization Address [facility] Phone Number [facility] [place] [address] PATHOLOGY AND GENOMIC [facility] * Hemoglobin, syringe (01/19/2018 3:33 PM) Only the most recent of 2 results within the time period is included. Hemoglobin, syringe 12.6 12.0 - 16.0 g/dL [facility] DEPARTMENT OF PATHOLOGY AND GENOMIC MEDICINE Specimen Blood Performing Organization Address City/[facility] Phone Number [facility] [place] [address] PATHOLOGY AND GENOMIC [facility] * Glucose level, syringe (01/19/2018 3:33 PM) Only the most recent of 2 results within the time period is included. Glucose, syringe 146 (H) 65 - 99 mg/dL [facility] DEPARTMENT OF PATHOLOGY AND GENOMIC MEDICINE Specimen Blood Performing Organization Address City/[facility] Phone [facility] [place] [address] PATHOLOGY AND [facility] * Arterial blood gas, corrected (01/19/2018 3:33 PM) Only the most recent of 2 results within the time period is included. pH, arterial 7.39 7.35 - 7.45 [facility] DEPARTMENT OF PATHOLOGY AND GENOMIC MEDICINE pCO2, arterial 40 35 - 45 mmHg [facility] DEPARTMENT OF PATHOLOGY AND GENOMIC MEDICINE pO2, arterial 229 (H) 80 - 90 mmHg [facility] DEPARTMENT OF PATHOLOGY AND GENOMIC MEDICINE Temperature, Celsius 36.3 Degrees C [facility] DEPARTMENT OF PATHOLOGY AND GENOMIC MEDICINE O2 saturation, arterial 99 95 - 100 % [facility] DEPARTMENT OF PATHOLOGY AND GENOMIC MEDICINE pH, arterial corrected 7.40 [facility] DEPARTMENT OF PATHOLOGY AND GENOMIC MEDICINE pCO2, arterial corrected 39 mmHg [facility] DEPARTMENT OF PATHOLOGY AND GENOMIC MEDICINE pO2, arterial corrected 226 mmHg [facility] DEPARTMENT OF PATHOLOGY AND GENOMIC MEDICINE Base excess, arterial 0 -2 - 2 mEq/L [facility] DEPARTMENT OF PATHOLOGY AND GENOMIC MEDICINE Specimen Blood Performing Organization Address City/[facility] [place] [address] PATHOLOGY AND GENOMIC MEDICINE * Type and screen (01/10/2018 2:51 PM) ABO grouping A [facility] DEPARTMENT OF PATHOLOGY AND GENOMIC MEDICINE Rh type NEG [facility] DEPARTMENT OF PATHOLOGY AND GENOMIC MEDICINE Antibody screen (gel) NEG [facility] DEPARTMENT OF PATHOLOGY AND GENOMIC MEDICINE Specimen Blood Performing Organization Address [facility] [place] [address] PATHOLOGY AND GENOMIC MEDICINE * Comprehensive metabolic panel (01/10/2018 2:51 PM) Only the most recent of 3 results within the time period is included. Sodium 143 135 - 148 mEq/L [facility] DEPARTMENT OF PATHOLOGY AND GENOMIC MEDICINE Potassium 4.8 3.5 - 5.0 mEq/L [facility] DEPARTMENT OF PATHOLOGY AND GENOMIC MEDICINE Chloride 105 98 - 112 mEq/L [facility] DEPARTMENT OF PATHOLOGY AND GENOMIC MEDICINE CO2 25 24 - 31 mEq/L [facility] DEPARTMENT OF PATHOLOGY AND GENOMIC MEDICINE Anion gap 13@ANIO 7 - 15 mEq/L [facility] DEPARTMENT OF PATHOLOGY AND GENOMIC MEDICINE BUN 8 8 - 23 mg/dL [facility] DEPARTMENT OF PATHOLOGY AND GENOMIC MEDICINE Creatinine 0.66 0.50 - 0.90 mg/dL [facility] DEPARTMENT OF PATHOLOGY AND GENOMIC MEDICINE Glucose 97 65 - 99 mg/dL [facility] DEPARTMENT OF PATHOLOGY AND GENOMIC MEDICINE Calcium 9.6 8.8 - 10.2 mg/dL [facility] DEPARTMENT OF PATHOLOGY AND GENOMIC MEDICINE Protein 6.7 6.3 - 8.3 g/dL [facility] DEPARTMENT OF Comment: PATHOLOGY AND [place] GENOMIC MEDICINE 4.6-7.0 g/dL 1 week 4.4-7.6 g/dL 7 months-1year 5.1-7.3 g/dL 1-2 years5.6-7 .5 g/dL >3 years6.0-8 .0 g/dL 18-150 6.3-8.3 g/dL Albumin 3.6 3.5 - 5.0 g/dL [facility] DEPARTMENT OF PATHOLOGY AND GENOMIC MEDICINE A/G ratio 1.2 0.7 - 3.8 [facility] DEPARTMENT OF PATHOLOGY AND GENOMIC MEDICINE Alkaline phosphatase 71 35 - 104 U/L [facility] DEPARTMENT OF PATHOLOGY AND GENOMIC MEDICINE AST 19 10 - 35 U/L [facility] DEPARTMENT OF PATHOLOGY AND GENOMIC MEDICINE ALT 25 5 - 50 U/L [facility] DEPARTMENT OF PATHOLOGY AND GENOMIC MEDICINE Total bilirubin 0.7 0.0 - 1.2 mg/dL [facility] DEPARTMENT OF PATHOLOGY AND GENOMIC MEDICINE Specimen Plasma specimen Performing Organization Address City/State/Zipcode Phone Number [address] [address] PATHOLOGY AND GENOMIC MEDICINE * Urinalysis screen and microscopy, with reflex to culture (10/19/2017 11:00 AM) Specimen site Clean catch [facility] DEPARTMENT OF PATHOLOGY AND GENOMIC MEDICINE Color, UA Yellow [facility] DEPARTMENT OF PATHOLOGY AND GENOMIC MEDICINE Appearance, UA Clear [facility] DEPARTMENT OF PATHOLOGY AND GENOMIC MEDICINE Specific gravity, UA 1.020 1.001 - 1.035 [facility] DEPARTMENT OF PATHOLOGY AND GENOMIC MEDICINE pH, UA 5.0 5.0 - 8.5 [facility] DEPARTMENT OF PATHOLOGY AND GENOMIC MEDICINE Protein, UA Negative Negative [facility] DEPARTMENT OF PATHOLOGY AND GENOMIC MEDICINE Glucose, UA Negative Negative [facility] DEPARTMENT OF PATHOLOGY AND GENOMIC MEDICINE Ketones, UA Negative Negative [facility] DEPARTMENT OF PATHOLOGY AND GENOMIC MEDICINE Bilirubin, UA Negative Negative [facility] DEPARTMENT OF PATHOLOGY AND GENOMIC MEDICINE Blood, UA Negative Negative [facility] DEPARTMENT OF PATHOLOGY AND GENOMIC MEDICINE Nitrite, UA Negative Negative [facility] DEPARTMENT OF PATHOLOGY AND GENOMIC MEDICINE Urobilinogen, UA <2.0 <2.0 [facility] DEPARTMENT OF PATHOLOGY AND GENOMIC MEDICINE Leukocyte esterase, UA Negative Negative [facility] DEPARTMENT OF PATHOLOGY AND GENOMIC MEDICINE Epithelial cells, UA <1 /HPF [facility] DEPARTMENT OF PATHOLOGY AND GENOMIC MEDICINE WBC, UA 1 0 - 4 /HPF [facility] DEPARTMENT OF PATHOLOGY AND GENOMIC MEDICINE RBC, UA None seen 0 - 5 /HPF [facility] DEPARTMENT OF PATHOLOGY AND GENOMIC MEDICINE Bacteria, UA Few None seen [facility] DEPARTMENT OF PATHOLOGY AND GENOMIC MEDICINE Yeast, UA None seen [facility] DEPARTMENT OF PATHOLOGY AND GENOMIC MEDICINE Yeast with pseudohyphae, None seen [facility] DEPARTMENT OF UA PATHOLOGY AND GENOMIC MEDICINE Specimen Urine Performing Organization Address City/[facility] Phone Number [facility] DEPARTMENT OF [address] [place] [address] PATHOLOGY AND GENOMIC MEDICINE * Lactic acid level, SEPSIS - Now and repeat 2x every 3 hours (10/19/2017 11:00 AM) Lactic acid 1.7 0.5 - 2.2 mmol/L [facility] DEPARTMENT OF PATHOLOGY AND GENOMIC MEDICINE Specimen Blood Performing Organization Address [facility] Phone Number [facility] DEPARTMENT OF [address] [place] [address] PATHOLOGY AND GENOMIC MEDICINE * Urine culture (10/19/2017 11:00 AM) Urine culture SEE COMMENTComment: [facility] DEPARTMENT OF Bacteriuria screen negative. PATHOLOGY AND GENOMIC MEDICINE Specimen Urine Performing Organization Address [facility] Phone Number [facility] DEPARTMENT OF [address] [place] [address] PATHOLOGY AND GENOMIC MEDICINE * US Gallbladder (10/19/2017 7:46 AM) Narrative Performed At Examination: US GALLBLADDER RADIANT Clinical history: epigastric painleukocytosis Comparison: None IMPRESSION:Transverse and longitudinal sonographic images were obtained through the gallbladder fossa. 1.The gallbladder appears normal without evidence of calculus, pericholecystic fluid, or gallbladder wall thickening. 2.The common duct is within normal limits at0.5 cm. 3.The portal vein is patent. 4. Hyperattenuation throughout the liver is generally attributed to fatty infiltration, though mild peripheral lobulation of the hepatic margins suggests some degree of cirrhosis may be present. Please correlate. A 0.9 x 0.7 cm relative hypoechogenicity within the liver adjacent to the gallbladder fossa is suggestive of focal sparing. A 1.1 cm simple appearing hepatic cyst is present. 5. The pancreatic duct is upper normal at 0.3 cm. Gallbladder measurement guidelines *Gallbladder distention: Greater than 9 x 4 cm (longitudinal by transverse dimension) *Wall thickening: Greater than 3 mm *Common bile duct dilatation: Greater than 6 mm (allowing 1 additional millimeter for each decade of age greater than 60 years) *Common bile duct dilatation status post cholecystectomy: Greater than 10 mm *Portal vein dilatation: Greater than 1.3 cm (measurements are variable and dependent upon hydration status and respiration) [id number] Procedure Note Interface, Radiology Results Incoming - 10/19/2017 7:54 AM CDT Examination: US GALLBLADDER Clinical history: epigastric pain leukocytosis Comparison: None IMPRESSION: Transverse and longitudinal sonographic images were obtained through the gallbladder fossa. 1. The gallbladder appears normal without evidence of calculus, pericholecystic fluid, or gallbladder wall thickening. 2. The common duct is within normal limits at 0.5 cm. 3. The portal vein is patent. 4. Hyperattenuation throughout the liver is generally attributed to fatty infiltration, though mild peripheral lobulation of the hepatic margins suggests some degree of cirrhosis may be present. Please correlate. A 0.9 x 0.7 cm relative hypoechogenicity within the liver adjacent to the gallbladder fossa is suggestive of focal sparing. A 1.1 cm simple appearing hepatic cyst is present. 5. The pancreatic duct is upper normal at 0.3 cm. Gallbladder measurement guidelines * Gallbladder distention: Greater than 9 x 4 cm (longitudinal by transverse dimension) * Wall thickening: Greater than 3 mm * Common bile duct dilatation: Greater than 6 mm (allowing 1 additional millimeter for each decade of age greater than 60 years) * Common bile duct dilatation status post cholecystectomy: Greater than 10 mm * Portal vein dilatation: Greater than 1.3 cm (measurements are variable and dependent upon hydration status and respiration) [facility]-[id number] Performing Organization Address City/State/Zipcode Phone Number [facility] [address] [place] [address] * Consult to Sepsis Response Team (10/19/2017 4:06 AM) Narrative Performed At Samir Reza MD 10/19/20178:05 PM Consult to Sepsis Response Team Performed by: GARCIA FOSTER Authorized by: SAMIR REZA Sepsis Clinical Assessment SIRS Criteria WBC > 12 K/mcL due to acute condition Sepsis Related Vitals Heart rate: 70 Temperature: 98.1 F Respiratory rate: 18 Blood pressure: 102/50 Altered mental status: WBC (k/uL) Date Value 10/19/2017 14.03 (H) 08/18/2017 7.03 Weight-Based Fluid Bolus Calculation The recommended weight-based bolus volume: 2,979 mL (actual weight) Please refer to the MAR for actual med/fluid administrations. * CT Abdomen Pelvis Wo Contrast (10/19/2017 3:04 AM) Narrative Performed At Examination:CT ABDOMEN PELVIS WO CONTRAST RADIANT Clinical History: abd pain Comparison: None. Findings: CT scans are performed using radiation dose reduction techniques.Technical factors are evaluated and adjusted to ensure appropriate moderation of exposure.Automated dose management technology is applied to adjust radiation exposure while achieving a diagnostic quality image. CT scan of the abdomen and pelvis was performed without intravenous contrast. The liver is diffusely low in density. Hepatic and splenic calcified granulomas are noted. The pancreas, gallbladder, and adrenal glands are unremarkable. There are a few left intrarenal calculi measuring up to 3 mm. Right kidney is within normal limits. No hydronephrosis or ureteral calculus is seen. The appendix is not visualized. Prominent fluid-filled loops of colon are noted diffusely but not grossly distended. No bowel thickening or fat stranding is seen. No bowel dilatation is seen. No free air or fluid is seen. Urinary bladder is unremarkable. The visualized lung bases are clear. IMPRESSION: 1. Nonspecific but nondilated fluid-filled loops of prominent colon which can be seen with adynamic ileus or impending diarrhea. There is no evidence for bowel obstruction. 2. Left nonobstructing intrarenal calculi. 3. Fatty liver. [id number] Procedure Note Interface, Radiology Results Incoming - 10/19/2017 3:16 AM CDT Examination: CT ABDOMEN PELVIS WO CONTRAST Clinical History: abd pain Comparison: None. Findings: CT scans are performed using radiation dose reduction techniques. Technical factors are evaluated and adjusted to ensure appropriate moderation of exposure. Automated dose management technology is applied to adjust radiation exposure while achieving a diagnostic quality image. CT scan of the abdomen and pelvis was performed without intravenous contrast. The liver is diffusely low in density. Hepatic and splenic calcified granulomas are noted. The pancreas, gallbladder, and adrenal glands are unremarkable. There are a few left intrarenal calculi measuring up to 3 mm. Right kidney is within normal limits. No hydronephrosis or ureteral calculus is seen. The appendix is not visualized. Prominent fluid-filled loops of colon are noted diffusely but not grossly distended. No bowel thickening or fat stranding is seen. No bowel dilatation is seen. No free air or fluid is seen. Urinary bladder is unremarkable. The visualized lung bases are clear. IMPRESSION: 1. Nonspecific but nondilated fluid-filled loops of prominent colon which can be seen with adynamic ileus or impending diarrhea. There is no evidence for bowel obstruction. 2. Left nonobstructing intrarenal calculi. 3. Fatty liver. [facility]-[id number] Performing Organization Address City/[facility]/Zipcode Phone Number [place] [phone] [place] [address] * Estimated GFR (10/19/2017 2:02 AM) Only the most recent of 3 results within the time period is included. GFR Non Af Amer 71 mL/min/1.73 m2 [facility] DEPARTMENT OF PATHOLOGY AND GENOMIC MEDICINE GFR Af Amer 86 mL/min/1.73 m2 [facility] DEPARTMENT OF Comment: PATHOLOGY AND Chronic kidney disease: <60 GENOMIC MEDICINE mL/min/1.73m2 Kidney failure: <15 mL/min/1.73m2 The estimated GFR is calculated from the IDMS-traceable Modification of Diet in Renal Disease Equation. The accuracy of the calculation is poor when the creatinine is normal. Calculated values >90 mL/min/1.73m2 are not reported. This equation has not been validated in children (<18 years), women, the elderly (>70 years), or ethnic groups other than Caucasians and Americans. Specimen Plasma specimen Performing Organization Address City/[facility]/[place] [address] PATHOLOGY AND [facility] * Lipase level (10/19/2017 2:02 AM) Lipase 25 13 - 60 U/L [facility] DEPARTMENT OF PATHOLOGY AND GENOMIC MEDICINE Specimen Plasma specimen Performing Organization Address [facility] Phone Number [place] [phone] PATHOLOGY AND GENOMIC MEDICINE * CBC hemogram (08/18/2017 3:40 PM) WBC 7.03 4.50 - 11.00 k/uL [facility] DEPARTMENT OF PATHOLOGY AND GENOMIC MEDICINE RBC 4.11 (L) 4.20 - 5.50 m/uL [facility] DEPARTMENT OF PATHOLOGY AND GENOMIC MEDICINE HGB 12.8 12.0 - 16.0 g/dL [facility] DEPARTMENT OF PATHOLOGY AND GENOMIC MEDICINE HCT 38.8 37.0 - 47.0 % [facility] DEPARTMENT OF PATHOLOGY AND GENOMIC MEDICINE MCV 94.4 82.0 - 100.0 fL [facility] DEPARTMENT OF PATHOLOGY AND GENOMIC MEDICINE MCH 31.1 27.0 - 34.0 pg [facility] DEPARTMENT OF PATHOLOGY AND GENOMIC MEDICINE MCHC 33.0 31.0 - 37.0 g/dL [facility] DEPARTMENT OF PATHOLOGY AND GENOMIC MEDICINE RDW - SD 45.0 37.0 - 55.0 fL [facility] DEPARTMENT OF PATHOLOGY AND GENOMIC MEDICINE MPV 10.6 8.8 - 13.2 fL [facility] DEPARTMENT OF PATHOLOGY AND GENOMIC MEDICINE Platelet count 317 150 - 400 k/uL [facility] DEPARTMENT OF PATHOLOGY AND GENOMIC MEDICINE Nucleated RBC 0.00 /100 WBC [facility] DEPARTMENT OF PATHOLOGY AND GENOMIC MEDICINE Specimen Blood Performing Organization Address City/[facility] Phone Number [facility] DEPARTMENT OF [address] [place] [phone] PATHOLOGY AND GENOMIC MEDICINE * ECG Pre/Post Op (08/18/2017 3:31 PM) Ventricular rate 71 [facility] MUSE Atrial rate 71 [facility] MUSE GA interval 138 [facility] MUSE QRSD interval 92 [facility] MUSE QT interval 386 [facility] MUSE QTC interval 419 [facility] MUSE P axis 1 64 [facility] MUSE QRS axis 1 48 [facility] MUSE T wave axis 64 [facility] MUSE EKG impression Normal sinus rhythm-Possible [facility] MUSE Left atrial enlargement-Borderline ECG-In automated comparison with ECG of 13-MAR-2017 20:45,-No significant change was found- Performing Organization Address [facility] Phone Number [facility] [place] [address] [place] [address] * Hemoglobin A1c (06/17/2017) Only the most recent of 2 results within the time period is included. Hemoglobin A1C 5.1 <5.7 % of total Hgb [facility] Comment: HANLEY For the purpose of screening for the presence of diabetes: <5.7% Consistent with the absence of diabetes 5.7-6.4%Consistent with increased risk for diabetes (predi abetes) > or=6.5%Consistent with diabetes This assay result is consistent with a decreased risk of diabetes. Currently, no consensus exists regarding use of hemoglobin A1c for diagnosis of diabetes in children. According to [place] Diabetes Association (ADA) guidelines, hemoglobin A1c <7.0% represents optimal control in non- diabetic patients. Different metrics may apply to specific patient populations. Standards of Medical Care in Diabetes(ADA). 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 [facility]-[id number] Procedure Note Interface, Radiology Results Incoming - 05/26/2017 1:12 PM AGENCY APPOINTMENTS SUPERVISOR EXAMINATION: [place] ESOPHAGRAM COMPLETE CLINICAL HISTORY: K22.0 [...] obstruction to passage of a barium tablet. [facility]-[id number] Performing Organization Address City/[facility]/Zipcode Phone Number [place] [address] [place] [address] * Vitamin D 25 hydroxy level (05/11/2017 1:04 PM) Vitamin D, 25-hydroxy 30 30 - 100 ng/mL [facility] Comment: LEANDER Vitamin D Status 25-OH Vitamin D: Deficiency: <20 ng/mL Insufficiency: 20 - 29 ng/mL Optimal: > or=30 ng/mL For 25-OH Vitamin D testing on patients on D2-supplementation and patients for whom quantitation of D2 and D3 fractions is required, the QuestAssureD(TM) 25-OH VIT D, (D2,D3), LC/MS/MS is recommended: order code 88135 (patients >2yrs). For more information on this test, go to: http://education.[employer]/faq/JKF249 (This link is being provided for informational/educational purposes only.) Specimen Blood Other Results Text Performing Organization Information: Site ID: [id number] Name: [facility] [place] [facility] Address: [address] [place] [phone] Director: Trinidad Eaton MD Performing Organization Address [facility] Phone Number [place] [phone] * Lipid panel (05/11/2017 1:04 PM) Cholesterol, total 147 <200 mg/dL [facility] HDL cholesterol 70 >50 mg/dL [facility] Triglycerides 95 <150 mg/dL [facility] LDL cholesterol 59 mg/dL (calc) [facility] Comment: LEANDER Reference range: <100 Desirable range <100 mg/dL for patients with CHD or diabetes and <70 mg/dL for diabetic patients with known heart disease. LDL-C is now calculated using the Travis calculation, which is a validated novel method providing better accuracy than the Friedewald equation in the estimation of LDL-C. Alex HOYOS et al. FLORY. 2013;310(19): 2658-1780 (http://education.[employer]/faq/CQL948) Cholesterol/HDL ratio 2.1 <5.0 (calc) [facility] Non-HDL cholesterol 77 <130 mg/dL (calc) [facility] Comment: LEANDER For patients with diabetes plus 1 major ASCVD risk factor, treating to a non-HDL-C goal of <100 mg/dL (LDL-C of <70 mg/dL) is considered a therapeutic option. Specimen Blood Other Results Text Performing Organization Information: Site ID: [id number] Name: [facility] [place] [facility] Address: [address] [place] [phone] Director: Trinidad Eaton MD Performing Organization Address City/State/[facility] Phone Number [facility] [employer] [facility] [address] [place] [address] * Surgical pathology request (04/29/2017 4:57 PM) [facility] DEPARTMENT OF PATHOLOGY AND GENOMIC MEDICINE Surgical pathology report See link below for PDF Lab [facility] DEPARTMENT OF Report PATHOLOGY AND GENOMIC MEDICINE Result status This is Final Report to [facility] DEPARTMENT OF [id number] PATHOLOGY AND GENOMIC MEDICINE Performing Organization Address City/[facility] Phone Number [facility] DEPARTMENT OF [address] [place] [address] PATHOLOGY AND GENOMIC MEDICINE * NM Gastric Emptying (04/22/2017 1:55 PM) Narrative Performed At Procedure:NM GASTRIC EMPTYING [facility] Clinical History:K22.8 Other specified diseases of esophagus, Z91.89 Other specified personal risk factorsnot elsewhere classified, early satiety Technique: 0.8 millicuries of [id number] colloid were mixed with an egg and [...] 1st 90 minutes (supine position):Gastric emptying half rgrm=157 minutes (normal is <100 minutes). 4 hour delayed imaging:Gastric retention=5% (normal is <10%) Impression: Gastric emptying is mildly delayed during the first 90 minutes while lying in a supine position. Following ambulation, delayed imaging demonstrates normal emptying. Although unproven, in such discrepancies the delayed images are generally considered to be more accurate. Alternatively, gastric emptying in this patient may be very position-dependent. [facility]-[id number] Procedure Note H[facility], Radiology Results Incoming - 04/22/2017 3:22 PM AGENCY APPOINTMENTS SUPERVISOR Procedure: NM GASTRIC EMPTYING Clinical History: K22.8 Other specified diseases of esophagus, Z91.89 Other specified personal risk factors not elsewhere classified, early satiety Technique: 0.8 millicuries of [id number] colloid were mixed with an egg and [...] 90 minutes (supine position): Gastric emptying half hajw=879 minutes (normal is <100 minutes). 4 hour delayed imaging: Gastric retention=5% (normal is <10%) Impression: Gastric emptying is mildly delayed during the first 90 minutes while lying in a supine position. Following ambulation, delayed imaging demonstrates normal emptying. Although unproven, in such discrepancies the delayed images are generally considered to be more accurate. Alternatively, gastric emptying in this patient may be very position-dependent. [facility]-[id number] Performing Organization Address City/State/Zipcode Phone Number [facility] [address] [place] [address] * ECG ED Preliminary Interpretation - NOT AN ORDER (03/14/2017 5:56 AM) Narrative Performed At Ramehs Carpio DO 03/14/20175:56 AM ECG ED Preliminary Interpretation - Not an Order Performed by: RAMESH CARPIO Authorized by: RAMESH CARPIO ECG reviewed by ED Physician in the absence of a brand engineer: yes Interpretation: Interpretation: normal Rate: ECG rate:81 ECG rate assessment: normal Rhythm: Rhythm: sinus rhythm QRS: QRS axis:Normal QRS intervals:Normal Conduction: Conduction: normal ST segments: ST segments:Normal T waves: T waves: normal * Troponin (03/13/2017 8:56 PM) Troponin <0.30 0.00 - 0.30 ng/mL [facility] DEPARTMENT OF Comment: PATHOLOGY AND 0.30 - 1.49 GENOMIC MEDICINE ng/mlMay indicate increased risk of acute coronary syndrome. >=1.5 ng/ml Consistent with acute myocardial infarction. The diagnostic value of a single normal or non-diagnostic result is questionable.Serial samples at 2-6 hour intervals are required to rule out acute myocardial injury. Specimen Plasma specimen Performing Organization Address [facility] [place] [address] PATHOLOGY AND [facility] * Partial thromboplastin time, activated (03/13/2017 8:56 PM) PTT 25.1 23.0 - 36.0 sec [facility] DEPARTMENT OF Comment: PATHOLOGY AND PTT therapeutic range for [facility] unfractionated heparin is 61.0-112.0 seconds which corresponds to Anti-Xa 0.3-0.7 U/ml. Specimen Blood Performing Organization Address [facility] [place] [address] PATHOLOGY AND [facility] * Prothrombin time with INR (03/13/2017 8:56 PM) Prothrombin time 12.8 12.0 - 15.0 sec [facility] DEPARTMENT OF PATHOLOGY AND [facility] MEDICINE INR 1.0 [facility] DEPARTMENT OF Comment: PATHOLOGY AND The International Normalized GENOMIC MEDICINE Ratio (INR) is a therapeutic monitoring tool for patients who are stable on oral anticoagulant therapy. An INR of 2.0-3.0 is suggested for deep vein thrombosis/pulmonary embolism. Specimen Blood Performing Organization Address [facility] [place] [address] PATHOLOGY AND [facility] MEDICINE * B natriuretic peptide (03/13/2017 8:56 PM) BNP 8 0 - 100 pg/mL [facility] DEPARTMENT OF PATHOLOGY AND [facility] MEDICINE Specimen Blood Performing Organization Address [facility] [place] [address] PATHOLOGY AND [facility] * Lactic acid level (03/13/2017 8:56 PM) Lactic acid 3.1 (H) 0.5 - 2.2 mmol/L [facility] DEPARTMENT OF PATHOLOGY AND [facility] MEDICINE Specimen Plasma specimen Performing Organization Address [facility] [place] [address] PATHOLOGY AND [facility] MEDICINE * Creatine kinase, total (CPK) (03/13/2017 8:56 PM) Creatine kinase 121 26 - 192 U/L [facility] DEPARTMENT OF PATHOLOGY AND GENOMIC MEDICINE Specimen Plasma specimen Performing Organization Address City/[facility]/Zipcode Phone Number [facility] DEPARTMENT OF [address] [place] [address] PATHOLOGY AND GENOMIC MEDICINE * ECG 12 lead (03/13/2017 8:45 PM) Ventricular rate 81 [facility] MUSE Atrial rate 81 [facility] MUSE GA interval 130 [facility] MUSE QRSD interval 90 [facility] MUSE QT interval 370 [facility] MUSE QTC interval 429 [facility] MUSE P axis 1 62 [facility] MUSE QRS axis 1 15 [facility] MUSE T wave axis 51 [facility] MUSE EKG impression Normal sinus rhythm-Normal [facility] MUSE ECG-In automated comparison with ECG of 25-MAR-2016 12:32,-Nonspecific T wave abnormality no longer evident in Inferior leads-Nonspecific T wave abnormality no longer evident in Lateral leads- Performing Organization Address City/[facility] Phone Number [facility] MUSE [address] [place] [address] * XR Chest 2 Vw (03/13/2017 8:42 PM) Narrative Performed At EXAMINATION:XR CHEST 2 VW RADIANT CLINICAL HISTORY:SHORTNESS OF BREATH COMPARISON:To previous examination from 02/05/2017 IMPRESSION: The cardiomediastinal silhouette is normal in appearance. The lungs are clear. There is no evidence of consolidation, congestion, or pneumothorax. A pleural effusion is not present. Visualized skeletal structures demonstrate no definite abnormality. Negative examination. [facility]-[id number] Procedure Note Interface, Radiology Results Incoming - 03/13/2017 8:46 PM AGENCY APPOINTMENTS SUPERVISOR EXAMINATION: XR CHEST 2 VW CLINICAL HISTORY: SHORTNESS OF BREATH COMPARISON: To previous examination from 02/05/2017 IMPRESSION: The cardiomediastinal silhouette is normal in appearance. The lungs are clear. There is no evidence of consolidation, congestion, or pneumothorax. A pleural effusion is not present. Visualized skeletal structures demonstrate no definite abnormality. Negative examination. [facility]-[id number] Performing Organization Address City/[facility]/Zipcode Phone Number [facility] [address] [place] [address] after 02/06/2017 Insurance Payer Benefit Subscriber ID Type Phone Address Plan / Group [employer]HC MEDICARE UNITED[employer] xxxxxxxxx [employer]
--- OUTSIDE RECORDS SUMMARY | 2018-02-07 04:54 | XMS REPORT | Summary of Care ---
Author Author [facility] Organization [facility] Address Unknown Phone Unavailable Encounter JASPAL Viera(JULIEN) [id number] Date(s): 12/31/15 - 01/01/16 [facility] [address] [place] [address]- [phone] Discharge Diagnosis: Knee pain, left Discharge Diagnosis: Closed nondisplaced fracture of left patella Discharge Disposition: Home or Self Care Attending Physician: Arslan Rodriguez DO Vital Signs Most recent to 1 2 oldest [Reference Range]: Height 170.18 cm (12/31/15 10:06 PM) Temperature Oral 98.5 DegF 98.3 DegF [96.4-99.1 DegF] (01/01/16 12:30 AM) (12/31/15 10:06 PM) Blood Pressure 133/70 mmHg 136/73 mmHg [90-140/60-90 mmHg] (01/01/16 12:30 AM) (12/31/15 10:06 PM) Respiratory Rate 18 BRMIN 18 BRMIN [14-20 BRMIN] (01/01/16 12:30 AM) (12/31/15 10:06 PM) Peripheral Pulse 67 bpm 70 bpm Rate [60-100 bpm] (01/01/16 12:30 AM) (12/31/15 10:06 PM) Weight 77.273 kg (12/31/15 10:06 PM) Body Mass Index 26.68 m2 (12/31/15 10:06 PM) Problem List No data available for this section Allergies, Adverse Reactions, Alerts Substance Reaction Severity Status Darvon Active Demerol Active Dilantin Active Iodine Active Lactose (Milk) Active morphine Active Medications No data available for this section Results No data available for this section Immunizations No data available for this section Procedures No data available for this section Social History Social History Type Response Smoking Status Never smoker; Exposure to Tobacco Smoke None; Cigarette Smoking Last 365 Days No; Reg Smoking Cessation Counseling No Assessment and Plan No data available for this section
--- OUTSIDE RECORDS SUMMARY | 2018-02-07 04:54 | XMS REPORT | Continuity of Care Document ---
Author Author [facility] Interface Address Unknown Phone Unavailable Problems Problem Status Onset Date Classification Date Reported Comments Source Discharge Diagnosis: Knee pain, left 12/31/2015 01/04/2016 [facility] Discharge Diagnosis: Closed nondisplaced fracture of left patella 12/31/2015 01/04/2016 [facility] FALL Active 12/31/2015 [facility] R05 Active 04/12/[address] [facility] COUGH Active [facility] Medications Medication Details Route Status Patient Instructions Ordering Provider Order Date Source Allergies, Adverse Reactions, Alerts Substance Category Reaction Severity Reaction type Status Date Reported Comments Source Darvon Assertion Propensity to adverse reactions to substance Active [facility] Demerol Assertion Drug allergy Active [facility] Dilantin Assertion Propensity to adverse reactions to substance Active [facility] Iodine Assertion Propensity to adverse reactions to substance Active [facility] Lactose (Milk) Assertion Drug allergy Active [facility] morphine Assertion Drug allergy Active [facility] Immunizations Immunization Date Given Site Status Last Updated Comments Source Results Order Name Results Value Reference Range Date Interpretation Comments Source Chest 2 views DX Chest 2 views DX EXAM: Chest 2 views DX HISTORY: - Cough COMPARISON: None The heart size is normal and the lungs are clear. There is no pleural effusion or pneumothorax. No acute skeletal abnormality. IMPRESSION: No acute abnormality. 01/12/2017 - - Read by: Tonie Case MD Dictated Date/time: 01/12/17 11:25 Electronically Signed by: Tonie Case MD 01/12/17 11:27 FINAL REPORT [facility] Knee 3 views DX Knee 3 views DX 3 VIEWS LEFT KNEE HISTORY: Patient fell. Swelling left patellar area. Unable to rotate her left knee. COMPARISON: No priors available.. There is a subtle lucent line along the inferior edge of the sella evident only on the lateral projection. There is prepatellar swelling in this area. Distal femur as well as the proximal tibia and fibula appear normal. No joint effusion. IMPRESSION: Apparent nondisplaced fracture through the inferior edge of the patella. END REPORT SL: KHUSHI 12/31/2015 - - Read by: Jacob Lee MD Dictated Date/time: 12/31/15 23:30 Electronically Signed by: Jacob Lee MD 12/31/15 23:32 FINAL REPORT [facility] Femur series DX Femur series DX AP AND LATERAL VIEWS OF THE LEFT FEMUR HISTORY: Patient fell earlier this evening now complains of left lower extremity pain. Unable to rotate her knee. Swelling to the patellar area.. COMPARISON: No relevant priors. The bony femur is intact, no fracture or dislocation. No periosteal reaction or cortical destruction. IMPRESSION: Normal exam. END REPORT SL: KHUSHI 12/31/2015 - - Read by: Jacob Lee MD Dictated Date/time: 12/31/15 23:29 Electronically Signed by: Jacob Lee MD 12/31/15 23:30 FINAL REPORT [facility] Hip 2/3 views uni DX Hip 2/3 views uni DX 2 VIEWS OF THE LEFT HIP HISTORY: Patient fell earlier this evening now complains of left hip pain. COMPARISON: No priors available. Bony structures and adjacent soft tissues of the hip appear normal, no fractures, no subluxations. Postoperative changes lumbar spine. IMPRESSION: Normal exam. END REPORT SL: KHUSHI 12/31/2015 - - Read by: Jacob Lee MD Dictated Date/time: 12/31/15 23:28 Electronically Signed by: Jacob Lee MD 12/31/15 23:29 FINAL REPORT [facility] Spine cervical wo contrast CT Spine cervical wo contrast CT CT CERVICAL SPINE WITHOUT CONTRAST. HISTORY: Fall. Pain posterior neck. COMPARISON: None available. TECHNIQUE: Coned-down axial images of the cervical spine were acquired from the level of the skull base to the thoracic inlet. Coronal and sagittal reconstructions provided. FINDINGS: Posterior alignment is maintained. No acute compression deformity seen. No perched or jumped facets evident. Lateral masses of C1 and C2 are well aligned. No fractures identified. Marked degenerative changes evident with marked changes involving C3-C7. Multilevel foraminal narrowing present. Prevertebral and paraspinal soft tissues appear within normal limits with no edematous changes of the musculature appreciated. Lung apices clear. 1.5 cm right thyroid nodule noted. IMPRESSION: 1. No acute findings appreciated. 2. Marked degenerative changes with multiple levels demonstrating foraminal narrowing. 3. 1.5 cm right thyroid nodule. SL: 200 12/31/2015 - - Read by: Renny Maldonado MD Dictated Date/time: 12/31/15 22:57 Electronically Signed by: Renny Maldonado MD 12/31/15 23:00 FINAL REPORT [facility] Brain wo contrast CT Brain wo contrast CT Addendum: I reviewed this examination and concur with the interpretation. PROCEDURE: CT HEAD WITHOUT CONTRAST Clinical Indication: Headache following trauma. Comparison: None TECHNIQUE: CT images were obtained from the foramen magnum to the vertex without the use of intravenous contrast on a multidetector CT. 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 There is a small area of chronic encephalomalacia medially right frontal lobe. There is evidence of previous frontal craniotomy. No other focal intracranial lesions. No mass effect or midline shift. No evidence of acute hemorrhage, intracranial mass or subacute infarct. VENTRICLES: The ventricular system is normal. The basilar cisterns are normal. ORBITS, MASTOIDS AND PARANASAL SINUSES: The visualized orbits and paranasal sinuses are unremarkable. The mastoid air cells are clear. SKULL: Evidence of previous craniotomy. Bony calvarium otherwise intact no acute fracture. IMPRESSION: Chronic right frontal changes in left subinsular changes no acute intracranial process evident. END IMPRESSION SL:[id number] 12/31/2015 - - Read by: Renny Maldonado MD Dictated Date/time: 12/31/15 23:00 Electronically Signed by: Renny Maldonado MD 12/31/15 23:01 FINAL REPORT - - Read by: Jacob Lee MD Dictated Date/time: 12/31/15 22:55 Electronically Signed by: Jacob Lee MD 12/31/15 23:00 FINAL REPORT [facility] Vital Signs Vital Sign Value Date Comments Source Respitory Rate 18 01/01/2016 [facility] Systolic (mm Hg) 133 01/01/2016 [facility] Diastolic (mm Hg) 70 01/01/2016 [facility] Heart Rate 67 01/01/2016 [facility] Temperature Oral (F) 98.5 F 01/01/2016 [facility] Height 170.18 cm 01/01/2016 [facility] BMI Calculated 26.68 01/01/2016 [facility] Weight 77.273 01/01/2016 [facility] Temperature Oral (F) 98.3 F 01/01/2016 [facility] Respitory Rate 18 01/01/2016 [facility] Heart Rate 70 01/01/2016 [facility] Systolic (mm Hg) 136 01/01/2016 [facility] Diastolic (mm Hg) 73 01/01/2016 [facility] Encounters Location Location Details Encounter Type Encounter Number Reason For Visit Attending Provider ADM Date DC Date Status Source [facility] Emergency [id number] Arslan Rodriguez 01/01/2016 01/01/2016 [facility] Outpatient [id number] Carlos Olivas 01/12/2017 01/13/[address] [facility] Procedures Procedure Code Date Perfomer Comments Source
--- OUTSIDE RECORDS SUMMARY | 2018-02-07 04:54 | XMS REPORT | Summary of Care ---
Author Author [facility] Organization [facility] Address Unknown Phone Unavailable Encounter HQ José_swati(JULIEN) [id number] Date(s): 01/12/17 - 01/12/17 [facility] [address] [place] [address]- Discharge Disposition: Home or Self Care Attending Physician: Carlos Olivas DO Admitting Physician: Carlos Olivas DO Vital Signs No data available for this section Problem List No data available for this [...]
[2018-02-07] MEDS ORDERED: PREDNISONE20 MG PO (05:15)
[2018-02-07] MEDS ORDERED: ALBUTEROL0.63 MG/3 NEB (05:15)
[2018-02-07] MEDS ORDERED: ALBUTEROL SULF 0.083% NEB SOLN 3 ML NEB NEB ONE (05:15)
[2018-02-07] MEDS ORDERED: PREDNISONE 20 MG TAB PO ONE (05:15)
[2018-02-07] MEDS ORDERED: METHYLPREDNISOLONE SOD SUCC 125 MG/2ML VIAL IM ONE (05:30)
[2018-02-07] MEDS ORDERED: VENTOLIN HFA18 GM INH (05:40)
== END 2018-02-07 06:22 | disposition home or self-care (01) ==
LOC: FSED 04:50
DX: R06.00 Dyspnea, unspecified (principal); J45.41 Moderate persistent asthma with (acute) exacerbation
CPT/HCPCS: 99283; J2930

== ENCOUNTER 2018-08-14 12:22 | Observation (INO) | payer MEDICARE ==
[~2018-08-14] VITALS: Ht 170.2 cm; Wt 90.7 kg
[~2018-08-14 12:22] MED LIST changes: +ALBUTEROL0.63 MG/3 NEB; +PREDNISONE20 MG PO; +VENTOLIN HFA18 GM INH
--- OUTSIDE RECORDS SUMMARY | 2018-08-14 12:25 | XMS REPORT | Clinical Summary ---
Author Author [facility] Organization [facility] Address Unknown Phone Unavailable Care Team Providers Care Hydraulic Press Tender Name Role Phone Sarah Gonzalez MD PCP Allergies Comments Active Allergy Reactions Severity Noted Date Fish Containing Products 01/20/2018 Iodine And Iodide Hives, Rash Low 01/01/2016 Containing Products Levofloxacin Hives 02/05/2017 Meperidine GI Low 01/01/2016 Intolerance, Rash hallucinaton Morphine Other (See 01/01/2016 Comments) Phenytoin Rash Low 01/01/2016 Phenytoin Sodium Extended Other (See Medium 01/01/2016 Comments) Not allergic to acetaminophen. Been taking it w/ no ADR. Per patient. Propoxyphene Hives, Rash, Low 01/01/2016 N-Acetaminophen GI Intolerance Shellfish Derived 01/20/2018 Medications End Date Status Medication Sig Dispensed Refills Start Date Active epINEPHrine (EPIPEN) 0.3 Inject 1 0 mg/0.3 mL auto-injector Cartridge as directed as needed. Active levalbuterol (XOPENEX INL 2 PUFFS 0 HFA) 45 mcg/actuation PO Q 4 H PRF 8 inhaler WHZ Active pantoprazole (PROTONIX) Take 40 mg by 0 40 MG EC tablet mouth as needed. 10/22/2018 Active cholecalciferol, vitamin Take 1 tablet 12 tablet 0 D3, 50,000 unit tablet (50,000 Units 9 total) by mouth once a week for 90 days. 08/13/2017 Discontinued albuterol (PROAIR Inhale 2 0 HFA,PROVENTIL puffs every 6 HFA,VENTOLIN HFA) 90 (six) hours mcg/actuation inhaler as needed for wheezing or shortness of breath. 02/16/2018 Discontinued levalbuterol (XOPENEX) Take 1 mL by 0 0.63 mg/3 mL nebulizer nebulization 7 solution every 4 (four) hours as needed for wheezing or shortness of breath. 10/19/2017 Discontinued ergocalciferol (VITAMIN Take 1 12 capsule 3 D2) 50,000 unit capsule capsule 7 (50,000 Units total) by mouth once a week. 10/19/2017 Discontinued ipratropium (ATROVENT . 0 HFA) 17 mcg/actuation 6 inhaler 03/07/2018 Discontinued albuterol (PROAIR Inhale 2 18 g 3 HFA,PROVENTIL puffs every 6 8 HFA,VENTOLIN HFA) 90 (six) hours mcg/actuation inhaler as needed for wheezing or shortness of breath. 10/19/2017 Discontinued benzonatate (TESSALON) benzonatate 0 100 MG capsule 100 mg capsule 10/19/2017 Discontinued fluticasone (FLONASE) 50 2 sprays (100 16 g 11 mcg/actuation nasal spray mcg total) by 8 Each Nare route daily. 10/19/2017 Discontinued nebulizers misc 0 10/19/2017 Discontinued amoxicillin-pot Take 1 tablet 0 clavulanate (AUGMENTIN) by mouth 2 875-125 mg per tablet (two) times a day. 10/19/2017 Discontinued loratadine (CLARITIN) 10 Take 10 mg by 0 mg tablet mouth daily. 10/09/2017 Discontinued nitroglycerin (NITROSTAT) Pt to take 1 20 tablet 0 0.4 MG SL tablet SL prior to 8 meals 10/19/2017 Discontinued NITROSTAT 0.[address] 1 25 tablet 0 tablet TABLET UNDER 8 THE TONGUE PRIOR TO MEALS DIRECTED 11/18/2017 dicyclomine (BENTYL) 20 Take 1 tablet 60 tablet 0 mg tablet (20 mg total) 8 by mouth 2 (two) times a day for 30 days. 11/18/2017 ondansetron ODT (ZOFRAN Take 1 tablet 9 tablet 0 ODT) 8 MG disintegrating (8 mg total) 8 tablet by mouth every 8 (eight) hours as needed for nausea or vomiting for up to 30 days. 11/18/2017 metoclopramide (REGLAN) Take 1 tablet 30 tablet 0 10 MG tablet (10 mg total) 8 by mouth every 6 (six) hours for 30 days. 01/10/2018 Discontinued nitroglycerin (NITROSTAT) Place 0.4 mg 0 0.4 MG SL tablet under the tongue every 5 (five) minutes as needed for chest pain. 03/07/2018 Discontinued fluticasone (FLONASE) 50 2 sprays by 0 mcg/actuation nasal spray Each Nare route daily as needed for rhinitis. 02/02/2018 Discontinued ergocalciferol (VITAMIN Take 50,000 0 D2) 50,000 unit capsule Units by mouth once a week. Wednesday12/28/2017 Discontinued nitroglycerin (NITROSTAT) PLACE 1 25 tablet 0 0.4 MG SL tablet TABLET UNDER 8 THE TONGUE PRIOR TO MEALS DIRECTED 12/20/2017 fluconazole (DIFLUCAN) 10 Take 20 mL 40 mL 0 mg/mL suspension (200 mg 8 total) by mouth daily for 2 days. 03/07/2018 Discontinued nitroglycerin (NITROSTAT) PLACE 1 25 tablet 0 0.4 MG SL tablet TABLET UNDER 8 THE TONGUE PRIOR TO MEALS DIRECTED 01/27/2018 HYDROcodone-acetaminophen Take 10 mL by 300 mL 0 (HYCET) 2.5-108.3 mg/5 mL mouth every 6 8 solution (six) hours as needed for moderate pain for up to 7 days. Max Daily Amount: 40 mL 02/19/2018 pantoprazole (PROTONIX) Take 1 tablet 30 tablet 0 20 MG EC tablet (20 mg total) 8 by mouth daily for 30 days. 02/04/2018 traMADol (ULTRAM) 50 mg Take 1 tablet 25 tablet 0 tabletIndications: (50 mg total) 8 Postoperative pain by mouth every 6 (six) hours as needed for moderate pain for up to 14 days. 02/02/2018 Discontinued ergocalciferol (VITAMIN TAKE 1 12 capsule 0 D2) 50,000 unit capsule CAPSULE BY 8 MOUTH 1 TIME A WEEK 07/24/2018 Discontinued ergocalciferol (VITAMIN TAKE 1 13 capsule 0 D2) 50,000 unit capsule CAPSULE BY 8 MOUTH 1 TIME A WEEK 07/21/2018 Discontinued levalbuterol (XOPENEX) VVN Q 6 H PRF 0 1.25 mg/3 mL nebulizer WHZ 8 solution 03/23/2018 Discontinued pantoprazole (PROTONIX) Take 20 mg by 0 20 MG EC tablet mouth daily. 06/21/2018 pantoprazole (PROTONIX) Take 1 tablet 90 tablet 1 20 MG EC tablet (20 mg total) 8 by mouth daily for 90 days. 07/21/2018 Discontinued pantoprazole (PROTONIX) Take 20 mg by 0 20 MG EC tablet mouth daily. Active Problems Problem Noted Date Surgery follow-up examination 02/02/2018 Last Assessment & Plan: The patient is doing well from a surgical standpoint. Ok to advance to a regular diet. She was advised to consume smaller quantities of food and allow herself ample time to finish meals. She was instructed to continue taking her PPI PRN. The patient was examined and evaluated with Dr. Torres and he agrees with the above plan. Return to clinic PRN for next follow-up. The patient verbalized understanding and agreement. Achalasia 01/19/2018 Achalasia of esophagus 05/28/2017 Last [...] disease) 07/13/2015 Nausea and vomiting 07/13/2015 Encounters Care Team Description Date Type Specialty Enriqueta Wahl MD Polyneuropathy (Primary Dx); Essential tremor 08/11/2018 Office Visit Neurology Sarah Gonzalez MD Encounter for screening for osteoporosis; Asymptomatic menopausal state 08/11/2018 Hospital Radiology Encounter Sarah Gonzalez MD Encounter for screening mammogram for breast cancer 08/11/2018 Hospital Radiology Encounter Sarah Gonzalez MD Abnormal mammogram of right breast (Primary Dx) 08/11/2018 Orders Only Internal Medicine Sarah Gonzalez MD 07/24/2018 Orders Only Internal Medicine Sarah Gonzalez MD Routine general medical examination at a health care facility (Primary Dx); Achalasia; Gastroesophageal reflux disease with esophagitis; Recurrent pneumonia; Vitamin D deficiency; Thyroid nodule; Hypothyroidism, unspecified type; Moderate persistent asthma without complication; Encounter for screening mammogram for breast cancer; Encounter for screening for osteoporosis; Asymptomatic menopausal state; Encounter for screening for cardiovascular disorders; Encounter for screening for lipid disorder; History of seizure; Class 1 obesity due to excess calories with serious comorbidity and body mass index (BMI) of 34.0 to 34.9 in adult; Tremor 07/21/2018 Office Visit Internal Medicine Sarah Gonzalez MD Thyroid nodule 06/01/2018 Hospital Radiology Encounter Sarah Gonzalez MD Thyroid nodule 06/01/2018 Hospital Radiology Encounter Sarah Gonzalez MD Thyroid nodule 03/24/2018 Hospital Radiology Encounter Sarah Gonzalez MD Thyroid nodule (Primary Dx) 03/24/2018 Orders Only Internal Medicine Sarah Gonzalez MD 03/23/2018 Telephone Internal Medicine Deep Torres MD 03/21/2018 Refill General Surgery Sarah Gonzalez MD 03/09/2018 Orders Only Internal Medicine Sarah Gonzalez MD Achalasia (Primary Dx); Gastroesophageal reflux disease with esophagitis; Recurrent pneumonia; Vitamin D deficiency; Thyroid nodule; Hypothyroidism, unspecified type; Eczema, unspecified type; Leukocytosis, unspecified type; Hyperglycemia 03/07/2018 Office Visit Internal Medicine Sarah Gonzalez MD 03/07/2018 Orders Only Internal Medicine Deep Torres MD Surgery follow-up examination (Primary Dx) 02/17/2018 Office Visit General Surgery Steve Frank MD Achalasia (Primary Dx) 02/16/2018 Office Visit Gastroenterology Sarah Gonzalez MD 02/02/2018 Refill Internal Medicine Sarah Gonzalez MD 02/02/2018 Refill Internal Medicine Deep Torres MD Surgery follow-up examination (Primary Dx) 01/27/2018 Office Visit General Surgery Purvi Corley RN 01/21/2018 Telephone General Surgery Purvi Corley RN Postoperative pain (Primary Dx) 01/21/2018 Orders Only General Surgery Arthur Corley 01/19/2018 Anesthesia General Surgery Event Deep Torres MD PERORAL ENDOSCOPIC MYOTOMY 01/19/2018 Surgery General Surgery Deep Torres MD 01/19/2018 Hospital General Surgery - Encounter 01/20/2018 Deep Torres MD Preop testing (Primary Dx) 01/10/2018 Pre-Admit Pre-Admission Testing Testing Appointment Waqar Parra MA Achalasia (Primary Dx) 01/05/2018 Transcribe General Surgery Orders Steve Frank MD 12/28/2017 Refill Gastroenterology Sarah Gonzalez MD BRCA TESTING NEGATIVE 12/19/2017 Documentation Internal Medicine Deep Torres MD Achalasia of esophagus (Primary Dx) 12/16/2017 Office Visit General Surgery Steve Frank MD 12/14/2017 Telephone Gastroenterology Steve Frank MD 12/07/2017 Refill Gastroenterology Sarah Gonzalez MD 11/23/2017 Documentation Family Medicine Lawanda uGo RN 11/03/2017 Telephone Gastroenterology Rochelle Siu MA 10/28/2017 Telephone Gastroenterology Samir Reza MD Abdominal pain, acute, generalized (Primary Dx); Intractable vomiting with nausea, unspecified vomiting type; Dehydration; Leukocytosis, unspecified type; Nephrolithiasis; Enteritis; Achalasia; Gastroesophageal reflux disease with esophagitis; Hiatal hernia; Age-related osteoporosis without current pathological fracture; YANIRA (obstructive sleep apnea); Fatty liver 10/19/2017 Emergency Emergency Medicine Steve Frank MD 10/09/2017 Refill GastroenterSteve Brothers MD 09/10/2017 Refill Gastroenterology Lawanda Guo RN 09/08/2017 Telephone Gastroenterology Leslie Barrios NP 08/30/2017 Anesthesia General Surgery Event Deep Torres MD 08/30/2017 Hospital General Surgery Encounter Sari, Lawanda, RN 08/30/2017 Telephone Gastroenterology Deep Torres MD Canceled LAPAROSCOPIC HELLER MYOTOMY W/ LEXUS FUNDOPLICATION 08/30/2017 Surgery General Surgery Deep Torres MD Preop testing (Primary Dx); Achalasia 08/18/2017 Pre-Admit Pre-Admission Testing Testing Appointment Sarah Gonzalez MD Viral upper respiratory tract infection (Primary Dx); Nasal congestion 08/18/2017 Office Visit Internal Medicine Waqar Parra MA Achalasia (Primary Dx) 08/13/2017 Transcribe General Surgery Orders after 08/13/2017 Immunizations Name Dates Previously Given Next Due FLUCELVAX QUAD PF (0.5mL 01/16/2017 syringe) Influenza Trivalent 02/02/2018, 01/10/2015 Pneumococcal Conjugate 05/11/2017 13-Valent Pneumococcal 04/12/2011 Polysaccharide Pneumococcal, Unspecified 01/10/2014 Zoster 04/12/2013 Family History Medical History Relation Name Comments Hypertension Brother Jayy Morillo extremely high BP Heart murmur Daughter Mitral valve prolapse Daughter Anesthesia problems Father Abeba Difficulty waking [place] COPD Father Sennett [place] Heart attack Father Sennett [place] Heart disease Father Sennett multiple heart attacks [place] Stroke Father Sennett paralysis-below neck [place] Breast cancer Maternal Aunt Colon cancer Maternal Delta caused Grandfather Saul[place] Heart disease Maternal [place] multiple heart attacks Grandfather Saul[place] Stroke Maternal Purvi caused Grandmother Saulters Varicose Veins Maternal Purvi Had surgeries for them Grandmother Saulters Colon cancer Mother Brittany [place] Hypertension Mother Brittany [place] extremely high BP Stroke Paternal Kell Yisel Caused Grandmother Anesthesia problems Son Lorenzo Nitrous oxide seizure [place] Heart murmur Son Lorenzo Lopez No Known Problems Son Relation Name Status Comments Brother Jayy [place] Alive Brother Alive Daughter Alive Father Sennett [place] Maternal Aunt Maternal Grandfather [place] Saulters Maternal Grandmother Purvi Saulters Alive Mother Brittany [place] Paternal Grandfather Paternal Grandmother Kell Yisel Alive Son Lorenzo Alive John Son Alive Social History Date Tobacco Use Types Packs/Day Years Used Never Smoker Smokeless Tobacco: Never Used Tobacco Cessation: Counseling Given: Yes Alcohol Use Drinks/Week oz/Week Comments No Sex Assigned at Date Recorded Not on file Industry Job Start Date Occupation Not on file Not on file Not on file Travel End Travel History Travel Start No recent travel history available. Last Filed Vital Signs Time Taken Vital Sign Reading 08/11/2018 1:59 PM CDT Blood Pressure 111/74 08/11/2018 1:59 PM CDT Pulse 89 07/21/2018 8:55 AM CDT Temperature 36.6 C (97.8 F) 02/17/2018 1:16 PM LINK ASSEMBLER Respiratory Rate 16 07/21/2018 8:55 AM CDT Oxygen Saturation 98% - Inhaled Oxygen - Concentration 08/11/2018 1:59 PM CDT Weight 95.3 kg (210 lb) 08/11/2018 1:59 PM CDT Height 165.1 cm (5' 5") 08/11/2018 1:59 PM CDT Body Mass Index 34.95 Plan of Treatment Care Team Description Date Type Specialty ErgunSteve MD [address] [facility] [address] [place] [address] [phone] 09/28/2018 Office Visit Gastroenterology Enriqueta Wahl MD [address] [facility] [address] [place], [place] [id number] 12/14/2018 Office Visit Neurology Health Maintenance Due Date Last Done Comments SHINGLES VACCINES (#1) 10/19/1997 65+ PNEUMOCOCCAL VACCINE 05/11/2018 05/11/2017, 01/10/2014, 04/12/2013, (2 of 2 - PPSV23) Additional history exists INFLUENZA VACCINE 11/10/2018 02/02/2018, 02/02/2018, 01/16/2017, Additional history exists COLON CANCER SCREENING 04/14/2019 04/14/2014 BREAST CANCER SCREENING 08/11/2020 08/11/2018, 08/11/2018, 08/11/2018, Additional history exists PNEUMOCOCCAL Completed 04/12/2011 POLYSACCHARIDE VACCINE AGE 65 AND OVER Implants Device Identifier Shelf Expiration Date Model / Serial / Lot Implanted Type Area Manufactur er EF 325N / / Catheter Endoflip 8cm Measurement - Surgical N/A: N/A CROSPON [id number] Implants; Implanted: Qty: 1 on 01/19/2018 by [employer]; Deep Torres MD Extenders; Surgical Wires [id number] / / Clip Resolution 360 Mr Cndtl 235cm Surgical N/A: N/A BSC 2.8mm 11mm Opening - [id number] Implants; ENDOSCOPY Implanted: Qty: 2 on 01/19/2018 by [employer]; Deep Torres MD Extenders; Surgical Wires [id number] / / Clip Resolution 360 Mr Cndtl 235cm Surgical N/A: N/A BSC 2.8mm 11mm Opening - [id number] Implants; ENDOSCOPY Implanted: Qty: 1 on 01/19/2018 by [employer]; Deep Torres MD Extenders; Surgical Wires [id number] / / Clip Resolution 360 Mr Cndtl 235cm Surgical N/A: N/A BSC 2.8mm 11mm Opening - [id number] Implants; ENDOSCOPY Implanted: Qty: 1 on 01/19/2018 by [employer]; Deep Torres MD Extenders; Surgical Wires [id number] / / Clip Resolution 360 Mr Cndtl 235cm Surgical N/A: N/A BSC 2.8mm 11mm Opening - [id number] Implants; ENDOSCOPY Implanted: Qty: 2 on 01/19/2018 by [employer]; Deep Torres MD Extenders; Surgical Wires [id number] / / Clip Resolution 360 Mr Cndtl 235cm Surgical N/A: N/A BSC 2.8mm 11mm Opening - [id number] Implants; ENDOSCOPY Implanted: 01/19/2018 (Quantity not [employer]anders; on file) Extenders; Surgical Wires Procedures Comments Procedure Name Priority Date/Time Associated Diagnosis MAMMO BREAST SCREEN Routine 08/11/2018 Encounter for screening TOMOSYNTHESIS BILATERAL 3:42 PM CDT mammogram for breast cancer BONE DENSITY Routine 08/11/2018 Encounter for screening 1:02 PM CDT for osteoporosis Asymptomatic menopausal state VITAMIN D 25 HYDROXY Routine 07/21/2018 Routine general medical LEVEL 9:44 AM CDT examination at a health care facility Vitamin D deficiency URINALYSIS, COMPLETE, Routine 07/21/2018 Routine general medical WITH REFLEX TO CULTURE 9:44 AM CDT examination at a health care facility TSH REFLEX TO T4F Routine 07/21/2018 Routine general medical 9:44 AM CDT examination at a health care facility Thyroid nodule Hypothyroidism, unspecified type LIPID PANEL Routine 07/21/2018 Routine general medical 9:44 AM CDT examination at a health care facility Thyroid nodule Hypothyroidism, unspecified type Encounter for screening for lipid disorder COMPREHENSIVE METABOLIC Routine 07/21/2018 Routine general medical PANEL 9:44 AM CDT examination at a health care facility Recurrent pneumonia CBC WITH PLATELET AND Routine 07/21/2018 Routine general medical DIFFERENTIAL 9:44 AM CDT examination at a health care facility Recurrent pneumonia URINE CULTURE Routine 07/21/2018 9:44 AM CDT ECG 12-LEAD Routine 07/21/2018 Routine general medical 9:29 AM CDT examination at a health care facility Encounter for screening for cardiovascular disorders US FNA W IMAGING ADDL Routine 06/01/2018 Thyroid nodule LESIONS 12:27 PM LINK ASSEMBLER US FNA W IMAGING Routine 06/01/2018 Thyroid nodule 12:26 PM LINK ASSEMBLER CYTOLOGY Routine 06/01/2018 (NON-GYNECOLOGICAL) 11:30 AM LINK ASSEMBLER REQUEST CYTOLOGY Routine 06/01/2018 (NON-GYNECOLOGICAL) 11:30 AM LINK ASSEMBLER REQUEST US THYROID Routine 03/24/2018 Thyroid nodule 12:05 PM LINK ASSEMBLER CBC WITH PLATELET AND Routine 03/09/2018 DIFFERENTIAL THYROID STIMULATING Routine 03/07/2018 HORMONE 12:00 AM LINK ASSEMBLER T4, FREE Routine 03/07/2018 12:00 AM LINK ASSEMBLER COMPREHENSIVE METABOLIC Routine 03/07/2018 PANEL 12:00 AM LINK ASSEMBLER HEMOGLOBIN A1C Routine 03/07/2018 12:00 AM LINK ASSEMBLER CBC WITH PLATELET AND Routine 03/07/2018 DIFFERENTIAL 12:00 AM LINK ASSEMBLER FL UGI W KUB Routine 01/20/2018 2:08 PM CDT HC COMPLETE BLD COUNT Routine 01/20/2018 W/AUTO DIFF 4:25 AM CDT ESTIMATED GFR Routine 01/20/2018 4:00 AM CDT BASIC METABOLIC PANEL Routine 01/20/2018 4:00 AM CDT XR CHEST 1 VW PORTABLE STAT 01/19/2018 5:18 PM CDT ESTIMATED GFR Routine 01/19/2018 5:13 PM CDT BASIC METABOLIC PANEL Routine 01/19/2018 5:13 PM CDT HC COMPLETE BLD COUNT Routine 01/19/2018 W/AUTO DIFF 5:13 PM CDT GLUCOSE LEVEL, SYRINGE STAT 01/19/2018 3:33 PM CDT LACTIC ACID, SYRINGE STAT 01/19/2018 3:33 PM CDT IONIZED CALCIUM, ARTERIAL STAT 01/19/2018 3:33 PM CDT HEMOGLOBIN, SYRINGE STAT 01/19/2018 3:33 PM CDT POTASSIUM, SYRINGE STAT 01/19/2018 3:33 PM CDT SODIUM LEVEL, SYRINGE STAT 01/19/2018 3:33 PM CDT ARTERIAL BLOOD GAS, STAT 01/19/2018 CORRECTED 3:33 PM CDT ARTERIAL LINE Routine 01/19/2018 2:35 PM CDT Procedure Note - Rajan Corley CRNA - 01/19/2018 2:35 PM CDT Arterial line Performed by: RAJAN CORLEY Authorized by: ROCHELLE BERGERON Patient Location: OR Start Time: 01/19/2018 2:00 PM End Time: 01/19/2018 2:10 PM Staff: Chante galiciat: CHANEL VAZQUEZ Performed by: Anesthesio logispanda Indication [...] complicati ons GLUCOSE LEVEL, SYRINGE STAT 01/19/2018 2:12 PM CDT IONIZED CALCIUM, ARTERIAL STAT 01/19/2018 2:12 PM CDT HEMOGLOBIN, SYRINGE STAT 01/19/2018 2:12 PM CDT SODIUM LEVEL, SYRINGE STAT 01/19/2018 2:12 PM CDT POTASSIUM, SYRINGE STAT 01/19/2018 2:12 PM CDT ARTERIAL BLOOD GAS, STAT 01/19/2018 CORRECTED 2:12 PM CDT LACTIC ACID, SYRINGE STAT 01/19/2018 2:12 PM CDT PA AN ELECTIVE Routine 01/19/2018 ENDOTRACHEAL AIRWAY 10:53 AM CDT Procedure Note - Raajn Corley CRNA - 01/19/2018 10:53 AM CDT [...] EST 3 HRS ESTIMATED GFR Routine 01/10/2018 2:51 PM CDT TYPE AND SCREEN Routine 01/10/2018 Preop testing 2:51 PM CDT COMPREHENSIVE METABOLIC Routine 01/10/2018 Preop testing PANEL 2:51 PM CDT HC COMPLETE BLD COUNT Routine 01/10/2018 Preop testing W/AUTO DIFF 2:51 PM CDT LACTIC ACID LEVEL, SEPSIS Timed 10/19/2017 - NOW AND REPEAT 2X EVERY 11:00 AM CDT 3 HOURS URINALYSIS SCREEN AND STAT 10/19/2017 MICROSCOPY, WITH REFLEX 11:00 AM CDT TO CULTURE URINE CULTURE STAT 10/19/2017 11:00 AM CDT US GALLBLADDER STAT 10/19/2017 7:46 AM CDT CONSULT TO SEPSIS Routine 10/19/2017 RESPONSE TEAM 4:[address] ABDOMEN PELVIS WO STAT 10/19/2017 CONTRAST 3:04 AM CDT LIPASE LEVEL STAT 10/19/2017 2:02 AM CDT ZZESTIMATED GFR STAT 10/19/2017 2:02 AM CDT COMPREHENSIVE METABOLIC STAT 10/19/2017 PANEL 2:02 AM CDT HC COMPLETE BLD COUNT STAT 10/19/2017 W/AUTO DIFF 2:02 AM CDT CBC HEMOGRAM Routine 08/18/2017 Achalasia 3:40 PM CDT ECG PRE/POST OP Routine 08/18/2017 Preop testing 3:31 PM CDT ZZESTIMATED GFR Routine 08/18/2017 2:29 PM CDT BASIC METABOLIC PANEL Routine 08/18/2017 Achalasia 2:29 PM CDT after 08/13/2017 Results * Mammo Breast Screen Tomosynthesis Bilateral (08/11/2018 3:42 PM CDT) Narrative Performed At PROCEDURE: [facility] MAMMO BREAST SCREEN TOMOSYNTHESIS BILATERAL Computer-assisted detection was utilized for the interpretation of this exam. COMPARISON: None. TECHNIQUE: Bilateral digital screening mammogram with tomosynthesis was performedand interpreted using computer-assisted detection. CLINICAL HISTORY: The patient has no current palpable breast complaints. FINDINGS: Bilateral mammogram demonstrates the breast parenchyma to be scattered fibroglandular densities. LEFT:No specific features of malignancy. RIGHT: Subcentimeter nodular densities in the outer portion of the right breast IMPRESSION: BI-RADS Category 0:Incomplete- Need additional imaging evaluation and/or prior mammograms for comparison. Further evaluation of the described findings in the right breast is advised with diagnostic mammography and/or ultrasound. This facility is accredited by The [employer] for Mammography. A negative x-ray report should not delay biopsy if a dominant or clinically suspicious mass is present. Not all cancers are identified by x-ray. [id number] Performing Organization Address City/State/Zipcode Phone Number [facility] [address] [place] [address] * Bone Density (08/11/2018 1:02 PM CDT) Narrative Performed At EXAMINATION:BONE DENSITY [facility] CLINICAL HISTORY:Z13.820 Encounter for screening for osteoporosis, Z78.0 Asymptomatic menopausal state, screen for osteoporosis COMPARISON:None. The results of this study expressed as bone mineral density (BMD) were as follows: AP spine (L1-L4) Lumbar spine hardware Dual Femur (Total Mean): BMD: 0.910 g/cm2 T-Score: -0.8 Z-Score:0.0 Percent change: No prior exam. % Left femoral neck: BMD: 0.809 g/cm2 T-Score: -1.6 Z score: -0.6 Right femoral neck: BMD: 0.834 g/cm2 T-Score: -1.5 Z score: -0.4 Femur FRAX: Risk factors: None. 10 year probability of fracture: 1.Major osteoporotic: 9.7% 2.Hip: 1.5% 3.Based on femur left neck BMD Impression: 1.Osteopenia based on a T score value of -1.6 for the left femoral neck. Due to the presence of hardware involving the mid to lower lumbar spine correlation with peripheral BMD may be of benefit to assess the bone mineral density profile. 2.BMI: 35.7 kg/sq m Notes: *The world health organization (WHO) has classified the patient's T-score as follows: At or above (-1) as normal (-1) to (-2.5) as low (osteopenia) At or below (-2.5) as abnormally low (osteoporosis, increased fracture risk) For premenopausal women, men under the age 50 years, and children the WHO classification does not apply. In these individuals please assess bone mineral density with Z scores for each skeletal site examined. Z scores above -2.0: Within expected range for age. Z scores lower than -2.0:Low bone density for age. The TBS is derived from the texture of the DEXA image and has been shown to be related to bone microarchitecture and fracture risk. This data provides information independent of BMD value; is used as a complement to the data obtained from the DEXA analysis and the clinical examination. The TBS can assist the healthcare professional in assessment of fracture risk and in monitoring the effect of treatments on patient over time. [facility]-[id number] Procedure Note [facility], Radiology Results Incoming - 08/11/2018 4:20 PM CDT EXAMINATION: BONE DENSITY CLINICAL HISTORY: Z13.820 Encounter for screening for osteoporosis, Z78.0 Asymptomatic menopausal state, screen for osteoporosis COMPARISON: None. The results of this study expressed as bone mineral density (BMD) were as follows: AP spine (L1-L4) Lumbar spine hardware Dual Femur (Total Mean): BMD: 0.910 g/cm2 T-Score: -0.8 Z-Score: 0.0 Percent change: No prior exam. % Left femoral neck: BMD: 0.809 g/cm2 T-Score: -1.6 Z score: -0.6 Right femoral neck: BMD: 0.834 g/cm2 T-Score: -1.5 Z score: -0.4 Femur FRAX: Risk factors: None. 10 year probability of fracture: 1. Major osteoporotic: 9.7% 2. Hip: 1.5% 3. Based on femur left neck BMD Impression: 1. Osteopenia based on a T score value of -1.6 for the left femoral neck. Due to the presence of hardware involving the mid to lower lumbar spine correlation with peripheral BMD may be of benefit to assess the bone mineral density profile. 2. BMI: 35.7 kg/sq m Notes: *The world health organization (WHO) has classified the patient's T-score as follows: At or above (-1) as normal (-1) to (-2.5) as low (osteopenia) At or below (-2.5) as abnormally low (osteoporosis, increased fracture risk) For premenopausal women, men under the age 50 years, and children the WHO classification does not apply. In these individuals please assess bone mineral density with Z scores for each skeletal site examined. Z scores above -2.0: Within expected range for age. Z scores lower than -2.0: Low bone density for age. The TBS is derived from the texture of the DEXA image and has been shown to be related to bone microarchitecture and fracture risk. This data provides information independent of BMD value; is used as a complement to the data obtained from the DEXA analysis and the clinical examination. The TBS can assist the healthcare professional in assessment of fracture risk and in monitoring the effect of treatments on patient over time. [facility]-[id number] Performing Organization Address City/State/Zipcode Phone Number [facility] [address] [place] [address] * URINALYSIS, COMPLETE, WITH REFLEX TO CULTURE (07/21/2018 9:44 AM CDT) Color, UA YELLOW YELLOW [facility] [place] Appearance CLEAR CLEAR [facility] [place] Specific gravity, urine 1.014 1.001 - 1.035 [facility] [place] pH, urine < OR=5.0 5.0 - 8.0 [facility] [place] Glucose, urine NEGATIVE NEGATIVE [facility] [place] Bilirubin, UA NEGATIVE NEGATIVE [facility] [place] Ketones, UA NEGATIVE NEGATIVE [facility] [place] Occult blood, urine NEGATIVE NEGATIVE [facility] [place] Protein, UA NEGATIVE NEGATIVE [facility] [place] Nitrite, UA NEGATIVE NEGATIVE [facility] [place] Leukocyte esterase, UA TRACE (A) NEGATIVE [facility] [place] WBC, UA 0-5 < OR=5 /HPF [facility] [place] RBC, UA 0-2 < OR=2 /HPF [facility] [place] Squamous epithelial 6-10 (A) < OR=5 /HPF [facility] cells, UA [place] Bacteria, UA MODERATE (A) NONE SEEN /HPF [facility] [place] Calcium oxalate crystals, FEW NONE OR FEW /HPF [facility] UA [place] Hyaline casts, UA NONE SEEN NONE SEEN /LPF [facility] [place] Comment FEW MUCOUS THREADS [facility] [place] Reflex CULTURE INDICATED - RESULTS TO [facility] Resulting Agency Comment Performing Organization Information: Site ID: A Name: [facility] Address: [address] [place] [phone] Director: Trinidad Eaton Performing Organization Address City/[facility]/Zipcode [place] [address] * TSH reflex to T4 (07/21/2018 9:44 AM CDT) TSH reflex to FT4 3.25 0.40 - 4.50 mIU/L [facility] [place] Specimen Blood Resulting Agency Comment Performing Organization Information: Site ID: A Name: [facility] Address: [address] [place] [phone] Director: Trinidad Eaton Performing Organization Address City/[facility]/Zipcode [place] [address] * Vitamin D 25 hydroxy level (07/21/2018 9:44 AM CDT) Vitamin D, 25-hydroxy 16 (L) 30 - 100 ng/mL [facility] Comment: [place] Vitamin D Status 25-OH Vitamin D: Deficiency: <20 ng/mL Insufficiency: 20 - 29 ng/mL Optimal: > or=30 ng/mL For 25-OH Vitamin D testing on patients on D2-supplementation and patients for whom quantitation of D2 and D3 fractions is required, the QuestAssureD(TM) 25-OH VIT D, (D2,D3), LC/MS/MS is recommended: order code 72114 (patients >2yrs). For more information on this test, go to: http://education.Certess/faq/NYQ775 (This link is being provided for informational/educational purposes only.) Specimen Blood Resulting Agency Comment Performing Organization Information: Site ID: A Name: [facility] Address: [address] [place] [phone] Director: Trinidad Eaton Performing Organization Address City/State/Zipcode Phone Number [facility] [place] [address] [place] [address] * CBC with platelet and differential (07/21/2018 9:44 AM CDT) Only the most recent of 7 results within the time period is included. WBC 5.0 3.8 - 10.8 Thousand/uL [facility] [place] RBC 4.50 3.80 - 5.10 Million/uL [facility] [place] HGB 14.2 11.7 - 15.5 g/dL [facility] [place] HCT 41.8 35.0 - 45.0 % [facility] [place] MCV 92.9 80.0 - 100.0 fL [facility] [place] MCH 31.6 27.0 - 33.0 pg [facility] [place] MCHC 34.0 32.0 - 36.0 g/dL [facility] [place] RDW 13.2 11.0 - 15.0 % [facility] [place] Platelet count 276 140 - 400 Thousand/uL [facility] [place] MPV 10.7 7.5 - 12.5 fL [facility] [place] Neutrophils, absolute 2,300 1,500 - 7,800 cells/uL [facility] [place] Lymphocytes, absolute 2,000 850 - 3,900 cells/uL [facility] [place] Monocytes, absolute 510 200 - 950 cells/uL [facility] [place] Eosinophils, absolute 140 15 - 500 cells/uL [facility] [place] Basophils, absolute 50 0 - 200 cells/uL [facility] [place] Neutrophils 46 % [facility] [place] Lymphocytes 40.0 % [facility] [place] Monocytes 10.2 % [facility] [place] Eosinophils 2.8 % [facility] [place] Basophils + RC 1.0 % [facility] [place] Specimen Blood Resulting Agency Comment Performing Organization Information: Site ID: RGA Name: [facility] Address: [address] [place] [phone] Director: Trinidad Eaton Performing Organization Address [facility] Phone Number [facility] [place] [address] * Urine culture (07/21/2018 9:44 AM CDT) Only the most recent of 2 results within the time period is included. Urine culture SEE NOTE [facility] Comment: [place] CULTURE, URINE, ROUTINE MICRO NUMBER:[id number] TEST STATUS: FINAL SPECIMEN SOURCE: URINE SPECIMEN QUALITY:ADEQUATE RESULT: No Growth Resulting Agency Comment Performing Organization Information: Site ID: A Name: [facility] Address: [address] [place] [phone] Director: Trinidad Eaton Performing Organization Address [facility] Phone Number [facility] [place] [address] * Lipid panel (07/21/2018 9:44 AM CDT) Cholesterol, total 156 <200 mg/dL [facility] HDL cholesterol 71 >50 mg/dL [facility] Triglycerides 137 <150 mg/dL [facility] LDL cholesterol 63 mg/dL (calc) [facility] calculated Comment: [place] Reference range: <100 Desirable range <100 mg/dL for primary prevention; <70 mg/dL for patients with CHD or diabetic patients with > or=2 CHD risk factors. LDL-C is now calculated using the Alex-Jerrell calculation, which is a validated novel method providing better accuracy than the Friedewald equation in the estimation of LDL-C. Alex HOYOS et al. FLORY. 2013;310(19): 8478-8685 (http://education.United Dogs [employer]ats.com/faq/QLM945) Cholesterol/HDL ratio 2.2 <5.0 (calc) [facility] [place] Non-HDL cholesterol 85 <130 mg/dL (calc) [facility] Comment: [place] For patients with diabetes plus 1 major ASCVD risk factor, treating to a non-HDL-C goal of <100 mg/dL (LDL-C of <70 mg/dL) is considered a therapeutic option. Specimen Blood Resulting Agency Comment Performing Organization Information: Site ID: RGA Name: [facility] Address: [address] [place] [phone] Director: Trinidad Eaton Performing Organization Address City/[facility]/Zipcode Phone Number [facility] [address] [address] * Comprehensive metabolic panel (07/21/2018 9:44 AM CDT) Only the most recent of 4 results within the time period is included. Glucose 95 65 - 99 mg/dL [facility] Comment: [place] Fasting reference interval BUN, whole blood 9 7 - 25 mg/dL [facility] [place] Creatinine 0.67 0.60 - 0.93 mg/dL [facility] Comment: [place] For patients >49 years of age, the reference limit for Creatinine is approximately 13% higher for people identified as -Dutch. EGFR Non-Afr. Dutch 89 > OR=60 mL/min/1.73m2 [facility] [place] EGFR 103 > OR=60 mL/min/1.73m2 [facility] [place] BUN/creatinine ratio NOT APPLICABLE 6 - 22 (calc) [facility] [place] Sodium 141 135 - 146 mmol/L [facility] [place] Potassium 4.4 3.5 - 5.3 mmol/L [facility] [place] Chloride 108 98 - 110 mmol/L [facility] [place] CO2 25 20 - 32 mmol/L [facility] [place] Calcium 9.4 8.6 - 10.4 mg/dL [facility] [place] Protein 6.5 6.1 - 8.1 g/dL [facility] [place] Albumin, S 4.1 3.6 - 5.1 g/dL [facility] [place] Globulin, total 2.4 1.9 - 3.7 g/dL (calc) [facility] [place] Albumin/globulin ratio 1.7 1.0 - 2.5 (calc) [facility] [place] Total bilirubin 0.6 0.2 - 1.2 mg/dL [facility] [place] Alkaline phosphatase 79 33 - 130 U/L [facility] [place] AST 16 10 - 35 U/L [facility] [place] ALT 16 6 - 29 U/L [facility] [place] Specimen Blood Resulting Agency Comment Performing Organization Information: Site ID: RGA Name: [facility] Address: [address] [place] [phone] Director: Trinidad Eaton Performing Organization Address City/State/Zipcode Phone Number [facility] [address] [address] * ECG 12 lead (07/21/2018 9:29 AM CDT) Ventricular rate 68 [facility] Atrial rate 68 [facility] PA interval 132 [facility] QRSD interval 90 [facility] QT interval 396 [facility] QTC interval 421 [facility] P axis 1 26 [facility] QRS axis 1 44 [facility] T wave axis 57 [facility] EKG impression Normal sinus rhythm with sinus [facility] arrhythmia-Normal ECG-In automated comparison with ECG of 18-AUG-2017 15:31,-No significant change was found- Narrative Performed At Performing Organization Address City/State/Zipcode Phone Number [facility] [address] [place] [address] * US FNA W Imaging - Additional Lesions (06/01/2018 12:27 PM LINK ASSEMBLER) Narrative Performed At EXAMINATION:US FNA W IMAGING, US FNA W IMAGING ADDL LESIONS [facility] TECHNIQUE: Initial ultrasound evaluation confirmed the presence of heterogeneous solid right inferior thyroid nodule measuring 1.9 cm and a 1.8 cm heterogeneous solid left mid thyroid nodule. The examination was discussed with the patient. Questions were answered. Risks, benefits, and alternatives were described. Written informed consent was obtained. Prior to beginning the procedure formal timeout procedure was performed. All elements of maximal sterile barrier technique were utilized. Real-time ultrasound imaging was performed. Permanent ultrasound images were obtained for the patient record. Utilizing real-time ultrasound guidance and local anesthesia, 4 FNA passes were made into the left nodule utilizing 25-gauge spinal needles.The specimen was judged adequate by the Pathologist on inital review. A total of 6 FNA passes were made in the right nodule utilizing 25-gauge spinal needles.The specimen was judged adequate by the Pathologist on inital review. The patient tolerated the procedure well. No immediate complications encountered. The patient left the department in good condition. Pathology results pending. IMPRESSION: Uncomplicated ultrasound-guided FNA biopsy of a left mid thyroid nodule measuring 1.75 cm in the right inferior thyroid nodule measuring 1.9 cm. Pathology results pending. [id number] Procedure Note Interface, Radiology Results Incoming - 06/02/2018 4:04 PM LINK ASSEMBLER EXAMINATION: US FNA W IMAGING, US FNA W IMAGING ADDL LESIONS TECHNIQUE: Initial ultrasound evaluation confirmed the presence of heterogeneous solid right inferior thyroid nodule measuring 1.9 cm and a 1.8 cm heterogeneous solid left mid thyroid nodule. The examination was discussed with the patient. Questions were answered. Risks, benefits, and alternatives were described. Written informed consent was obtained. Prior to beginning the procedure formal timeout procedure was performed. All elements of maximal sterile barrier technique were utilized. Real-time ultrasound imaging was performed. Permanent ultrasound images were obtained for the patient record. Utilizing real-time ultrasound guidance and local anesthesia, 4 FNA passes were made into the left nodule utilizing 25-gauge spinal needles.The specimen was judged adequate by the Pathologist on inital review. A total of 6 FNA passes were made in the right nodule utilizing 25-gauge spinal needles.The specimen was judged adequate by the Pathologist on inital review. The patient tolerated the procedure well. No immediate complications encountered. The patient left the department in good condition. Pathology results pending. IMPRESSION: Uncomplicated ultrasound-guided FNA biopsy of a left mid thyroid nodule measuring 1.75 cm in the right inferior thyroid nodule measuring 1.9 cm. Pathology results pending. [id number] Performing Organization Address City/State/[facility] Phone Number [facility] [address] [place] [address] * US FNA W Imaging (06/01/2018 12:26 PM LINK ASSEMBLER) Narrative Performed At EXAMINATION:US FNA W IMAGING, US FNA W IMAGING ADDL LESIONS [facility] TECHNIQUE: Initial ultrasound evaluation confirmed the presence of heterogeneous solid right inferior thyroid nodule measuring 1.9 cm and a 1.8 cm heterogeneous solid left mid thyroid nodule. The examination was discussed with the patient. Questions were answered. Risks, benefits, and alternatives were described. Written informed consent was obtained. Prior to beginning the procedure formal timeout procedure was performed. All elements of maximal sterile barrier technique were utilized. Real-time ultrasound imaging was performed. Permanent ultrasound images were obtained for the patient record. Utilizing real-time ultrasound guidance and local anesthesia, 4 FNA passes were made into the left nodule utilizing 25-gauge spinal needles.The specimen was judged adequate by the Pathologist on inital review. A total of 6 FNA passes were made in the right nodule utilizing 25-gauge spinal needles.The specimen was judged adequate by the Pathologist on inital review. The patient tolerated the procedure well. No immediate complications encountered. The patient left the department in good condition. Pathology results pending. IMPRESSION: Uncomplicated ultrasound-guided FNA biopsy of a left mid thyroid nodule measuring 1.75 cm in the right inferior thyroid nodule measuring 1.9 cm. Pathology results pending. [id number] Procedure Note Interface, Radiology Results Incoming - 06/02/2018 4:04 PM LINK ASSEMBLER EXAMINATION: US FNA W IMAGING, US FNA W IMAGING ADDL LESIONS TECHNIQUE: Initial ultrasound evaluation confirmed the presence of heterogeneous solid right inferior thyroid nodule measuring 1.9 cm and a 1.8 cm heterogeneous solid left mid thyroid nodule. The examination was discussed with the patient. Questions were answered. Risks, benefits, and alternatives were described. Written informed consent was obtained. Prior to beginning the procedure formal timeout procedure was performed. All elements of maximal sterile barrier technique were utilized. Real-time ultrasound imaging was performed. Permanent ultrasound images were obtained for the patient record. Utilizing real-time ultrasound guidance and local anesthesia, 4 FNA passes were made into the left nodule utilizing 25-gauge spinal needles.The specimen was judged adequate by the Pathologist on inital review. A total of 6 FNA passes were made in the right nodule utilizing 25-gauge spinal needles.The specimen was judged adequate by the Pathologist on inital review. The patient tolerated the procedure well. No immediate complications encountered. The patient left the department in good condition. Pathology results pending. IMPRESSION: Uncomplicated ultrasound-guided FNA biopsy of a left mid thyroid nodule measuring 1.75 cm in the right inferior thyroid nodule measuring 1.9 cm. Pathology results pending. [id number] Performing Organization Address City/State/Zipcode Phone Number [facility] [address] [place] [address] * Cytology (non-gynecological) request (06/01/2018 11:30 AM LINK ASSEMBLER) Only the most recent of 2 results within the time period is included. [facility] DEPARTMENT OF PATHOLOGY AND GENOMIC MEDICINE Cytology See link below for PDF Lab [facility] DEPARTMENT OF (non-gynecological) Report PATHOLOGY AND report GENOMIC MEDICINE Result status This is Final Report for [facility] DEPARTMENT OF [id number] PATHOLOGY AND GENOMIC MEDICINE Performing Organization Address City/State/Zipcode Phone Number [facility] DEPARTMENT [place] [address] [address] [address] PATHOLOGY AND GENOMIC MEDICINE * US Thyroid (03/24/2018 12:05 PM LINK ASSEMBLER) Narrative Performed At EXAMINATION:US THYROID [facility] CLINICAL HISTORY: 72 years 1945 E04.1 Nontoxic single thyroid nodule, thyroid nodule COMPARISON:Thyroid ultrasound from July 07, 2007 and thyroid biopsy from July 19, 2007 TECHNIQUE:Sonographic evaluation of the thyroid. FINDINGS: 1.Right lobe measures 5.5 x 1.8 x 2.2 cm.Left lobe measures 5.0 x 1.5 x 1.7 cm. The isthmus measures 5 mm, top normal in thickness.Gland is heterogeneous in echotexture. 2.The following nodules were detected on the right: NODULE: 1 *Location: Superior right lobe *Size: 1.7 x 1.3 x 0.7 cm *Composition: Solid or almost entirely solid - 2 pts *Echogenicity: Hypoechoic - 2 pts *Shape: Mabqi-wujt-yjhp - 0 pts *Margin: Smooth - 0 pts *Echogenic foci: None or large comet-tail artifacts - 0 pts TOTAL POINTS: 4 (TR 4) NODULE: 2 *Location: Mid right lobe *Size: 1.8 x 1.2 x 0.9 cm *Composition: Solid or almost entirely solid - 2 pts *Echogenicity: Hypoechoic - 2 pts *Shape: Lmpch-qugs-iezu - 0 pts *Margin: Lobulated or irregular - 2 pts *Echogenic foci: None or large comet-tail artifacts - 0 pts TOTAL POINTS: 6 (TR 4) NODULE: 3 *Location: Inferior right lobe *Size: 2.3 x 1.7 x 2.0 cm *Composition: Solid or almost entirely solid - 2 pts *Echogenicity: Hypoechoic - 2 pts *Shape: Aizkr-wtcu-hvkv - 0 pts *Margin: Smooth - 0 pts *Echogenic foci: Punctate echogenic foci - 3 pts TOTAL POINTS: 7 (TR 5) 3. The following nodules were detected on the left: NODULE: 1 *Location: Mid left lobe *Size: 1.9 x 1.1 x 0.9 cm *Composition: Solid or almost entirely solid - 2 pts *Echogenicity: Hypoechoic - 2 pts *Shape: Qbzxc-tbdy-kdjz - 0 pts *Margin: Lobulated or irregular - 2 pts *Echogenic foci: Punctate echogenic foci - 3 pts TOTAL POINTS: 9 (TR 5) NODULE: 2 *Location: Inferior left lobe *Size: 1.2 x 0.9 x 1.0 cm *Composition: Solid or almost entirely solid - 2 pts *Echogenicity: Hyperechoic or Isoechoic - 1 pt *Shape: Bomoc-qjrn-pcwy - 0 pts *Margin: Smooth - 0 pts *Echogenic foci: Punctate echogenic foci - 3 pts TOTAL POINTS: 6 (TR 4) IMPRESSION: Heterogeneous and multinodular thyroid gland. Fine-needle aspiration is recommended for the 2.3 cm TR 5 nodule in the right and 1.9 cm TR 5 nodule on the left. Several of the nodules appear to have grown slightly compared to the ultrasound from 07/07/2007, however direct comparison is difficult due to technical factors. It appears that nodule 2 on the right side was previously biopsied, along with nodule 1 on the left. Mejia Kim MD Pleating Machine Operator, PGY - 2 I personally reviewed the images and the resident's findings and agree with the final report. [id number] Procedure Note Hm Interface, Radiology Results Incoming - 03/24/2018 4:46 PM LINK ASSEMBLER EXAMINATION: US THYROID CLINICAL HISTORY: 72 years 1945 E04.1 Nontoxic single thyroid nodule, thyroid nodule COMPARISON: Thyroid ultrasound from July 07, 2007 and thyroid biopsy from July 19, 2007 TECHNIQUE: Sonographic evaluation of the thyroid. FINDINGS: 1. Right lobe measures 5.5 x 1.8 x 2.2 cm. Left lobe measures 5.0 x 1.5 x 1.7 cm. The isthmus measures 5 mm, top normal in thickness. Gland is heterogeneous in echotexture. 2. The following nodules were detected on the right: NODULE: 1 * Location: Superior right lobe * Size: 1.7 x 1.3 x 0.7 cm * Composition: Solid or almost entirely solid - 2 pts * Echogenicity: Hypoechoic - 2 pts * Shape: Ztiyo-oawc-qddf - 0 pts * Margin: Smooth - 0 pts * Echogenic foci: None or large comet-tail artifacts - 0 pts TOTAL POINTS: 4 (TR 4) NODULE: 2 * Location: Mid right lobe * Size: 1.8 x 1.2 x 0.9 cm * Composition: Solid or almost entirely solid - 2 pts * Echogenicity: Hypoechoic - 2 pts * Shape: Jnosf-bhmv-ewnx - 0 pts * Margin: Lobulated or irregular - 2 pts * Echogenic foci: None or large comet-tail artifacts - 0 pts TOTAL POINTS: 6 (TR 4) NODULE: 3 * Location: Inferior right lobe * Size: 2.3 x 1.7 x 2.0 cm * Composition: Solid or almost entirely solid - 2 pts * Echogenicity: Hypoechoic - 2 pts * Shape: Qxbjm-znau-pzmv - 0 pts * Margin: Smooth - 0 pts * Echogenic foci: Punctate echogenic foci - 3 pts TOTAL POINTS: 7 (TR 5) 3. The following nodules were detected on the left: NODULE: 1 * Location: Mid left lobe * Size: 1.9 x 1.1 x 0.9 cm * Composition: Solid or almost entirely solid - 2 pts * Echogenicity: Hypoechoic - 2 pts * Shape: Mznlx-dnjy-xxug - 0 pts * Margin: Lobulated or irregular - 2 pts * Echogenic foci: Punctate echogenic foci - 3 pts TOTAL POINTS: 9 (TR 5) NODULE: 2 * Location: Inferior left lobe * Size: 1.2 x 0.9 x 1.0 cm * Composition: Solid or almost entirely solid - 2 pts * Echogenicity: Hyperechoic or Isoechoic - 1 pt * Shape: Fqibb-mikp-lpxb - 0 pts * Margin: Smooth - 0 pts * Echogenic foci: Punctate echogenic foci - 3 pts TOTAL POINTS: 6 (TR 4) IMPRESSION: Heterogeneous and multinodular thyroid gland. Fine-needle aspiration is recommended for the 2.3 cm TR 5 nodule in the right and 1.9 cm TR 5 nodule on the left. Several of the nodules appear to have grown slightly compared to the ultrasound from 07/07/2007, however direct comparison is difficult due to technical factors. It appears that nodule 2 on the right side was previously biopsied, along with nodule 1 on the left. Mejia Kim MD Pleating Machine Operator, PGY - 2 I personally reviewed the images and the resident's findings and agree with the final report. [id number] Performing Organization Address City/State/Zipcode Phone Number [facility] [address] [place] [address] * Thyroid stimulating hormone (03/07/2018 12:00 AM LINK ASSEMBLER) TSH 3.100 0.450 - 4.500 uIU/mL [facility] Narrative Performed At Performed at:01 - [facility] [address] [place], [id number] Fur Glosser: Brady Zapien MD, Phone:[phone] Performing Organization Address [facility] Phone Number [facility] * T4, free (03/07/2018 12:00 AM LINK ASSEMBLER) T4, free 1.42 0.82 - 1.77 ng/dL [facility] Narrative Performed At Performed at: - [facility] [address] [place], [id number] Fur Glosser: Brady Zapien MD, Phone:[phone] Performing Organization Address [facility] Phone Number [facility] * Hemoglobin A1c (03/07/2018 12:00 AM LINK ASSEMBLER) Hemoglobin A1C 5.4 4.8 - 5.6 % [facility] Comment: Prediabetes: 5.7 - 6.4 Diabetes: >6.4 Glycemic control for adults with diabetes: <7.0 Narrative Performed At Performed at: [facility] [address] [place], [id number] Fur Glosser: Brady Zapien MD, Phone:[phone] Performing Organization Address [facility] Phone Number [facility] * FL UGI W KUB (01/20/2018 2:08 PM CDT) Narrative Performed At EXAMINATION: FL UGI W [...] atelectasis. Spondylosis. Partially visualized lumbar fusion hardware. [facility]-[id number] Procedure Note Interface, Radiology Results Incoming - 01/20/2018 2:55 [...] atelectasis. Spondylosis. Partially visualized lumbar fusion hardware. [facility]-[id number] Performing Organization Address [facility] Phone Number [facility] [address] [place] [address] * Estimated GFR (01/20/2018 4:00 AM CDT) Only the most recent of 3 results within the time period is included. Estimated GFR 89 mL/min/1.73 m2 [facility] DEPARTMENT OF Comment: PATHOLOGY AND CatergoryUnitsInte GENOMIC MEDICINE rpretation G1 >=90 Normal or high G2 60-89Mildly decreased [id number] Mildly to moderately decreased [id number] Moderately to severely decreased G4 15-29Severely decreased G5 <15Kidney failure The eGFR was calculated using the Chronic Kidney Disease Epidemiology Collaboration (CKD-EPI) equation. Interpretation is based on recommendations of the National Kidney Foundation-Kidney Disease Outcomes Quality Initiative (NKF-KDOQI) published in 2014. Specimen Plasma specimen Performing Organization Address [facility] Phone Number [facility] DEPARTMENT [place] [id number] PATHOLOGY AND GENOMIC MEDICINE * Basic metabolic panel (01/20/2018 4:00 AM CDT) Only the most recent of 3 results within the time period is included. Sodium 143 135 - 148 mEq/L [facility] DEPARTMENT OF PATHOLOGY AND GENOMIC MEDICINE Potassium 4.5 3.5 - 5.0 mEq/L [facility] DEPARTMENT OF PATHOLOGY AND GENOMIC MEDICINE Chloride 105 98 - 112 mEq/L [facility] DEPARTMENT OF PATHOLOGY AND GENOMIC MEDICINE CO2 25 24 - 31 mEq/L [facility] DEPARTMENT OF PATHOLOGY AND GENOMIC MEDICINE Anion gap 13@ANIO 7 - 15 mEq/L [facility] DEPARTMENT OF PATHOLOGY AND GENOMIC MEDICINE BUN 8 8 - 23 mg/dL [facility] DEPARTMENT OF PATHOLOGY AND GENOMIC MEDICINE Creatinine 0.66 0.50 - 0.90 mg/dL [facility] DEPARTMENT OF PATHOLOGY AND GENOMIC MEDICINE Glucose 131 (H) 65 - 99 mg/dL [facility] DEPARTMENT OF PATHOLOGY AND GENOMIC MEDICINE Calcium 9.4 8.8 - 10.2 mg/dL [facility] DEPARTMENT OF PATHOLOGY AND GENOMIC MEDICINE Specimen Plasma specimen Performing Organization Address City/[facility] Cent[facility]ode Phone Number [facility] [place] [address] PATHOLOGY AND GENOMIC MEDICINE * XR Chest 1 Vw Portable (01/19/2018 5:18 PM CDT) Narrative Performed At EXAMINATION:XR CHEST 1 VW PORTABLE RADIANT CLINICAL HISTORY:post op procedure COMPARISON:March 13, 2017 chest IMPRESSION: Hypoinflation of the lungs with patchy bibasilar atelectasis No focal infiltrate. No congestion or effusion. No pneumothorax The Cardiomediastinal silhouette is normal in size. Mild vascular ectasia and atherosclerosis Radiopaque densities project over the midline at T8 level Single view chest [facility]-[id number] Procedure Note Hm Interface, Radiology Results Incoming - 01/19/2018 5:28 [...] midline at T8 level Single view chest [facility]-[id number] Performing Organization Address [facility] Phone Number [address] [address] * Sodium level, syringe (01/19/2018 3:33 PM CDT) Only the most recent of 2 results within the time period is included. Sodium, syringe 144 135 - 148 mEq/L [facility] DEPARTMENT OF PATHOLOGY AND GENOMIC MEDICINE Specimen Blood Performing Organization Address City/[facility] Cent[facility]ode Phone Number [facility] DEPARTMENT OF [address] [place] [address] PATHOLOGY AND GENOMIC MEDICINE * Potassium, syringe (01/19/2018 3:33 PM CDT) Only the most recent of 2 results within the time period is included. Potassium, syringe 3.7 3.5 - 5.0 mEq/L [facility] DEPARTMENT OF PATHOLOGY AND GENOMIC MEDICINE Specimen Blood Performing Organization Address [facility]/Zipcode Phone Number [facility] [place] [address] PATHOLOGY AND GENOMIC MEDICINE * Lactic acid, syringe (01/19/2018 3:33 PM CDT) Only the most recent of 2 results within the time period is included. Lactic acid, syringe 3.3 (H) 0.5 - 2.2 mmol/L [facility] DEPARTMENT OF PATHOLOGY AND GENOMIC MEDICINE Specimen Blood Performing Organization Address City/[facility] Centercode Phone Number [facility] [place] [address] PATHOLOGY AND GENOMIC MEDICINE * Ionized calcium, arterial (01/19/2018 3:33 PM CDT) Only the most recent of 2 results within the time period is included. Ionized calcium, arterial 1.21 1.11 - 1.32 mmol/L [facility] DEPARTMENT OF PATHOLOGY AND GENOMIC MEDICINE Specimen Blood Performing Organization Address [facility] [place] [address] PATHOLOGY AND GENOMIC MEDICINE * Hemoglobin, syringe (01/19/2018 3:33 PM CDT) Only the most recent of 2 results within the time period is included. Hemoglobin, syringe 12.6 12.0 - 16.0 g/dL [facility] DEPARTMENT OF PATHOLOGY AND GENOMIC MEDICINE Specimen Blood Performing Organization Address [facility] Centercode Phone Number [facility] [place] [address] PATHOLOGY AND GENOMIC MEDICINE * Glucose level, syringe (01/19/2018 3:33 PM CDT) Only the most recent of 2 results within the time period is included. Glucose, syringe 146 (H) 65 - 99 mg/dL [facility] DEPARTMENT OF PATHOLOGY AND GENOMIC MEDICINE Specimen Blood Performing Organization Address City/[facility] Centercode Phone Number [facility] [place] [address] PATHOLOGY AND GENOMIC MEDICINE * Arterial blood gas, corrected (01/19/2018 3:33 PM CDT) Only the most recent of 2 results within the time period is included. pH, arterial 7.39 7.35 - 7.45 [facility] DEPARTMENT OF PATHOLOGY AND GENOMIC MEDICINE pCO2, arterial 40 35 - 45 mmHg [facility] DEPARTMENT OF PATHOLOGY AND GENOMIC MEDICINE pO2, arterial 229 (H) 80 - 90 mmHg [facility] DEPARTMENT OF PATHOLOGY AND GENOMIC MEDICINE Temperature, Celsius 36.3 Degrees C [facility] DEPARTMENT OF PATHOLOGY AND GENOMIC MEDICINE O2 saturation, arterial 99 95 - 100 % [facility] DEPARTMENT OF PATHOLOGY AND GENOMIC MEDICINE pH, arterial corrected 7.40 [facility] DEPARTMENT OF PATHOLOGY AND GENOMIC MEDICINE pCO2, arterial corrected 39 mmHg [facility] DEPARTMENT OF PATHOLOGY AND GENOMIC MEDICINE pO2, arterial corrected 226 mmHg [facility] DEPARTMENT OF PATHOLOGY AND GENOMIC MEDICINE Base excess, arterial 0 -2 - 2 mEq/L [facility] DEPARTMENT OF PATHOLOGY AND GENOMIC MEDICINE Specimen Blood Performing Organization Address City/[facility] [place]erc[place] [address] PATHOLOGY AND GENOMIC MEDICINE * Type and screen (01/10/2018 2:51 PM CDT) ABO grouping A [facility] DEPARTMENT OF PATHOLOGY AND GENOMIC MEDICINE Rh type NEG [facility] DEPARTMENT OF PATHOLOGY AND GENOMIC MEDICINE Antibody screen (gel) NEG [facility] DEPARTMENT OF PATHOLOGY AND GENOMIC MEDICINE Specimen Blood Performing Organization Address [facility] [place]erc[place] [address] PATHOLOGY AND GENOMIC MEDICINE * Urinalysis screen and microscopy, with reflex to culture (10/19/2017 11:00 AM CDT) Specimen site Clean catch [facility] DEPARTMENT OF PATHOLOGY AND GENOMIC MEDICINE Color, UA Yellow [facility] DEPARTMENT OF PATHOLOGY AND GENOMIC MEDICINE Appearance, UA Clear [facility] DEPARTMENT OF PATHOLOGY AND GENOMIC MEDICINE Specific gravity, UA 1.020 1.001 - 1.035 [facility] DEPARTMENT OF PATHOLOGY AND GENOMIC MEDICINE pH, UA 5.0 5.0 - 8.5 [facility] DEPARTMENT OF PATHOLOGY AND GENOMIC MEDICINE Protein, UA Negative Negative [facility] DEPARTMENT OF PATHOLOGY AND GENOMIC MEDICINE Glucose, UA Negative Negative [facility] DEPARTMENT OF PATHOLOGY AND GENOMIC MEDICINE Ketones, UA Negative Negative [facility] DEPARTMENT OF PATHOLOGY AND GENOMIC MEDICINE Bilirubin, UA Negative Negative [facility] DEPARTMENT OF PATHOLOGY AND GENOMIC MEDICINE Blood, UA Negative Negative [facility] DEPARTMENT OF PATHOLOGY AND GENOMIC MEDICINE Nitrite, UA Negative Negative [facility] DEPARTMENT OF PATHOLOGY AND GENOMIC MEDICINE Urobilinogen, UA <2.0 <2.0 [facility] DEPARTMENT OF PATHOLOGY AND GENOMIC MEDICINE Leukocyte esterase, UA Negative Negative [facility] DEPARTMENT OF PATHOLOGY AND GENOMIC MEDICINE Epithelial cells, UA <1 /HPF [facility] DEPARTMENT OF PATHOLOGY AND GENOMIC MEDICINE WBC, UA 1 0 - 4 /HPF [facility] DEPARTMENT OF PATHOLOGY AND GENOMIC MEDICINE RBC, UA None seen 0 - 5 /HPF [facility] DEPARTMENT OF PATHOLOGY AND GENOMIC MEDICINE Bacteria, UA Few None seen [facility] DEPARTMENT OF PATHOLOGY AND GENOMIC MEDICINE Yeast, UA None seen [facility] DEPARTMENT OF PATHOLOGY AND GENOMIC MEDICINE Yeast with pseudohyphae, None seen [facility] DEPARTMENT [facility] PATHOLOGY AND GENOMIC MEDICINE Specimen Urine Performing Organization Address City/State/Zipcode Phone Number [facility] DEPARTMENT OF [address] [place] [address] PATHOLOGY AND GENOMIC MEDICINE * Lactic acid level, SEPSIS - Now and repeat 2x every 3 hours (10/19/2017 11:00 AM CDT) Lactic acid 1.7 0.5 - 2.2 mmol/L [facility] DEPARTMENT OF PATHOLOGY AND GENOMIC MEDICINE Specimen Blood Performing Organization Address City/[facility]/Zipcode Phone Number [facility] OF [address] [place] [address] PATHOLOGY AND GENOMIC MEDICINE * US Gallbladder (10/19/2017 7:46 AM CDT) Narrative Performed At Examination: US GALLBLADDER RADIANT [...] and dependent upon hydration status and respiration) [facility]-[id number] Procedure Note Interface, Radiology Results Incoming - [...] and dependent upon hydration status and respiration) [facility]-[id number] Performing Organization Address City/State/Zipcode Phone Number [facility] [address] [place] [address] * Consult to Sepsis Response Team (10/19/2017 4:06 AM CDT) Narrative Performed At Samir Reza MD 10/19/20178:05 [...] CT Abdomen Pelvis Wo Contrast (10/19/2017 3:04 AM CDT) Narrative Performed At Examination:CT ABDOMEN PELVIS WO CONTRAST RADIBANNER Clinical History: abd pain Comparison: None. Findings: [...] Left nonobstructing intrarenal calculi. 3. Fatty liver. [facility]-[id number] Procedure Note [facility], Radiology Results Incoming - 10/19/2017 3:16 AM [...] Left nonobstructing intrarenal calculi. 3. Fatty liver. [facility]-[id number] Performing Organization Address City/[facility]/[place] [address] * Estimated GFR (10/19/2017 2:02 AM CDT) Only the most recent of 2 results within the time period is included. GFR Non Af Amer 71 mL/min/1.73 m2 [facility] DEPARTMENT OF PATHOLOGY AND GENOMIC MEDICINE GFR Af Amer 86 mL/min/1.73 m2 [facility] DEPARTMENT OF Comment: PATHOLOGY AND Chronic kidney [...] Americans. Specimen Plasma specimen Performing Organization Address City/[facility]/[place] [address] PATHOLOGY AND GENOMIC MEDICINE * Lipase level (10/19/2017 2:02 AM CDT) Lipase 25 13 - 60 U/L [facility] DEPARTMENT OF PATHOLOGY AND GENOMIC MEDICINE Specimen Plasma specimen Performing Organization Address [facility] [place] [address] PATHOLOGY AND GENOMIC MEDICINE * CBC hemogram (08/18/2017 3:40 PM CDT) WBC 7.03 4.50 - 11.00 k/uL [facility] DEPARTMENT OF PATHOLOGY AND GENOMIC MEDICINE RBC 4.11 (L) 4.20 - 5.50 m/uL [facility] DEPARTMENT OF PATHOLOGY AND GENOMIC MEDICINE HGB 12.8 12.0 - 16.0 g/dL [facility] DEPARTMENT OF PATHOLOGY AND GENOMIC MEDICINE HCT 38.8 37.0 - 47.0 % [facility] DEPARTMENT OF PATHOLOGY AND GENOMIC MEDICINE MCV 94.4 82.0 - 100.0 fL [facility] DEPARTMENT OF PATHOLOGY AND GENOMIC MEDICINE MCH 31.1 27.0 - 34.0 pg [facility] DEPARTMENT OF PATHOLOGY AND GENOMIC MEDICINE MCHC 33.0 31.0 - 37.0 g/dL [facility] DEPARTMENT OF PATHOLOGY AND GENOMIC MEDICINE RDW - SD 45.0 37.0 - 55.0 fL [facility] DEPARTMENT OF PATHOLOGY AND GENOMIC MEDICINE MPV 10.6 8.8 - 13.2 fL [facility] DEPARTMENT OF PATHOLOGY AND GENOMIC MEDICINE Platelet count 317 150 - 400 k/uL [facility] DEPARTMENT OF PATHOLOGY AND GENOMIC MEDICINE Nucleated RBC 0.00 /100 WBC [facility] DEPARTMENT OF PATHOLOGY AND GENOMIC MEDICINE Specimen Blood Performing Organization Address City/[facility] Centercode Phone Number [facility] [address] [place] [address] PATHOLOGY AND GENOMIC MEDICINE * ECG Pre/Post Op (08/18/2017 3:31 PM CDT) Ventricular rate 71 [facility] MUSE Atrial rate 71 [facility] M[facility] PA interval 138 [facility] QRSD interval 92 [facility] QT interval 386 [facility] QTC interval 419 [facility] P axis 1 64 [facility] QRS axis 1 48 [facility] M[facility] T wave axis 64 [facility]USE EKG impression Normal sinus rhythm-Possible [facility] MUSE Left atrial enlargement-Borderline ECG-In automated comparison with ECG of 13-MAR-2017 20:45,-No significant change was found- Performing Organization Address City/[facility] Centercode Phone Number [facility] [address] [place] [address] after 08/13/2017 Insurance Payer Benefit Subscriber ID Type Phone Address Plan / Group UHC MEDICARE UHC xxxxxxxxx O MEDICARE HMO/PPO Advance Directives Patient has advance care planning documents on file. For more information, jovani e contact: Talon Hudson [address] [place] [address]
--- OUTSIDE RECORDS SUMMARY | 2018-08-14 12:26 | XMS REPORT ---
Author Author [facility] Address Unknown Phone Unavailable Care Team Providers Care Special Events Fundraiser Name Role Phone BRAD GUERRERO Unavailable Unavailable Problems This patient has no known problems. Allergies, Adverse Reactions, Alerts This patient has no known allergies or adverse reactions. Medications This patient has no known medications. Results Test Description Test Time Test Comments Text Results Atomic Results Result Comments CXR 2 VIEW - HOPD 2018-04-15 14:41:00 [facility] [address] [place] [address] Patient Name: EDWINA RICH MR #: [id number] : 1945 Age/Sex: 72/F Req #: [id number] Adm Physician: Ordered by: BRAD GUERRERO MD Report #: [id number] Location: [facility] Room/Bed: Procedure: [id number] HOPD/CXR 2 VIEW - HOPD Exam Date: 04/15/18 Exam Time: 1340 REPORT STATUS: Signed EXAMINATION: CXR 2 VIEW - HOPD INDICATION: [id number] COMPARISON: None FINDINGS: PA and lateral views TUBES and LINES: None. LUNGS: Lungs are well inflated. There is no evidence of pneumonia or pulmonary edema. PLEURA: No pleural effusion or pneumothorax. HEART AND MEDIASTINUM: The cardiomediastinal silhouette is unremarkable. BONES AND SOFT TISSUES: No acute osseous lesion. Soft tissues are unremarkable. UPPER ABDOMEN: No free air under the diaphragm. IMPRESSION: No acute thoracic abnormality. Signed by: Dr. Tripp Irwin MD on 04/15/2018 2:42 PM Dictated By: TRIPP IRWIN MD [id number] Transcribed By: SHAI on 04/15/18 144 COPY TO: BRAD GUERRERO MD
[2018-08-14] MEDS ORDERED: ONDANSETRON HCL INJ 2MG/ML 2ML 2 MG/ML VIAL IV STA ×2 (13:55→16:31)
[2018-08-14] MEDS: SODIUM CHLORIDE 0.9% 1000ML 1,000 ML IV SCH ×2 (13:59→21:29)
[2018-08-14] MEDS: PROMETHAZINE 25MG/ NS 50ML (IV) IV PRN (15:33)
--- NOTE | 2018-08-14 15:58 | Diagnostic Imaging Report ---
RADIOGRAPH(S) OF THE ABDOMEN AND PELVIS, 3 view(s) HISTORY: Severe nausea, vomiting, abdominal pain COMPARISON: None available. FINDINGS: No specific evidence of obstruction or ileus. No definite urinary tract calcification. The bones are partially obscured by stool and overlying bowel gas. Posterior fusion from L3 to S1. Bilateral ira and pedicle screw constructs. Severe degenerative disc changes at L2-3. IMPRESSION: No acute radiographic abnormality. Specifically, no evidence of obstruction or ileus. Signed by: Dr. Alhaji Landaverde D.O., M.M.M. on 08/14/2018 3:55 PM
[2018-08-14] MEDS ORDERED: ONDANSETRON HCL INJ 2MG/ML 2ML 2 MG/ML VIAL IV PRN (17:45)
[2018-08-14] MEDS ORDERED: PROMETHAZINE HCL (IM) 25 MG/ML VIAL IV PRN (17:45)
--- OUTSIDE RECORDS SUMMARY | 2018-08-14 17:47 | XMS REPORT | Clinical Summary ---
Author Author Hanley [facility] Organization [facility] Address Unknown Phone Unavailable Care Team Providers Care Drywall Hanger Helper Name Role Phone Sarah Gonzalez MD PCP [...] Gonzalez MD 11/23/2017 Documentation Family Medicine Lawanda Guo RN 11/03/2017 Telephone Gastroenterology Rochelle Siu MA [...] Daughter Anesthesia problems Father Abeba Difficulty waking Strawn COPD Father Sennett Yisel Heart attack Father Sennett Strawn Heart disease Father Sennett multiple heart attacks Strawn Stroke Father Sennett paralysis-below neck Yisel Breast cancer Maternal Aunt Colon cancer Maternal Delta caused Grandfather Saulters Heart disease Maternal Delta multiple heart attacks Grandfather Saulters Stroke Maternal Purvi caused Grandmother Saulters Varicose Veins Maternal Purvi Had surgeries for them Grandmother Saulters Colon cancer Mother Brittany [place] Hypertension Mother Brittany [place] extremely high BP Stroke Paternal Kell Yisel Caused Grandmother Anesthesia problems Son Lorenzo Nitrous oxide seizure Lpoez Heart murmur Son Lorenzo Lopez No Known Problems Son Relation Name Status Comments Brother Jayy [place] Alive Brother Alive Daughter Alive Father Sennett Strawn Maternal Aunt Maternal Grandfather Delta Saulters Maternal Grandmother Purvi Saulters Alive Mother Brittany [place] Paternal Grandfather Paternal Grandmother Kell Iysel Alive Son Lorenzo Alive John Son Alive [...] 36.6 C (97.8 F) 02/17/2018 1:16 PM PICKLE SOLUTION MAKER Respiratory Rate 16 07/21/2018 8:55 AM CDT Oxygen Saturation 98% - Inhaled Oxygen - Concentration 08/11/2018 1:59 PM CDT Weight 95.3 kg (210 lb) 08/11/2018 1:59 PM CDT Height 165.1 cm (5' 5") 08/11/2018 1:59 PM CDT Body Mass Index 34.95 Plan of Treatment Care Team Description Date Type Specialty ErgunSteve MD [address] [facility] [address] [place] [address] [phone] 09/28/2018 Office Visit Gastroenterology Enriqueta Wahl MD [address] [facility] [place], [place] [id number] 12/14/2018 Office Visit Neurology Health Maintenance Due [...] 8cm Measurement - Surgical N/A: N/A CROSPON [id number] Implants; Implanted: Qty: 1 on 01/19/2018 by Expand[employer]; Deep Torres MD Extenders; Surgical Wires [id number] / / Clip Resolution 360 Mr Cndtl 235cm Surgical N/A: N/A BSC 2.8mm 11mm Opening - [id number] Implants; ENDOSCOPY Implanted: Qty: 2 on 01/19/2018 by [employer]; Deep Trores MD Extenders; Surgical Wires [id number] / / Clip Resolution 360 Mr Cndtl 235cm Surgical N/A: N/A BSC 2.8mm 11mm Opening - [id number] Implants; ENDOSCOPY Implanted: Qty: 1 on 01/19/2018 by [employer]and[employer]; Deep Torres MD Extenders; Surgical Wires [id number] / / Clip Resolution 360 Mr Cndtl 235cm Surgical N/A: N/A BSC 2.8mm 11mm Opening - [id number] Implants; ENDOSCOPY Implanted: Qty: 1 on 01/19/2018 by Expand[employer]; Deep Torres MD Extenders; Surgical Wires [id number] / / Clip Resolution 360 Mr Cndtl 235cm Surgical N/A: N/A BSC 2.8mm 11mm Opening - [id number] Implants; ENDOSCOPY Implanted: Qty: 2 on 01/19/2018 by Expand[employer]; Deep Torres MD Extenders; Surgical Wires [id number] / / Clip Resolution 360 Mr Cndtl 235cm Surgical N/A: N/A BSC 2.8mm 11mm Opening - [id number] Implants; ENDOSCOPY Implanted: 01/19/2018 (Quantity not Expanders; [...] Routine 06/01/2018 Thyroid nodule LESIONS 12:27 PM PICKLE SOLUTION MAKER US FNA W IMAGING Routine 06/01/2018 Thyroid nodule 12:26 PM PICKLE SOLUTION MAKER CYTOLOGY Routine 06/01/2018 (NON-GYNECOLOGICAL) 11:30 AM PICKLE SOLUTION MAKER REQUEST CYTOLOGY Routine 06/01/2018 (NON-GYNECOLOGICAL) 11:30 AM PICKLE SOLUTION MAKER REQUEST US THYROID Routine 03/24/2018 Thyroid nodule 12:05 PM PICKLE SOLUTION MAKER CBC WITH PLATELET AND Routine 03/09/2018 DIFFERENTIAL THYROID STIMULATING Routine 03/07/2018 HORMONE 12:00 AM PICKLE SOLUTION MAKER T4, FREE Routine 03/07/2018 12:00 AM PICKLE SOLUTION MAKER COMPREHENSIVE METABOLIC Routine 03/07/2018 PANEL 12:00 AM PICKLE SOLUTION MAKER HEMOGLOBIN A1C Routine 03/07/2018 12:00 AM PICKLE SOLUTION MAKER CBC WITH PLATELET AND Routine 03/07/2018 DIFFERENTIAL 12:00 AM PICKLE SOLUTION MAKER FL UGI W KUB Routine 01/20/2018 2:08 [...] ACID, SYRINGE STAT 01/19/2018 2:12 PM CDT AL AN ELECTIVE Routine 01/19/2018 ENDOTRACHEAL AIRWAY 10:53 [...] 3:42 PM CDT) Narrative Performed At PROCEDURE: [facility] MAMMO BREAST SCREEN TOMOSYNTHESIS BILATERAL Computer-assisted detection [...] ultrasound. This facility is accredited by [employer] for Mammography. A negative x-ray report should not delay biopsy if a dominant or clinically suspicious mass is present. Not all cancers are identified by x-ray. [id number] Performing Organization Address City/State/Zipcode Phone Number [facility] [address] [place] [address] * Bone Density (08/11/2018 1:02 PM CDT) Narrative Performed At EXAMINATION:BONE DENSITY [facility] CLINICAL HISTORY:Z13.820 Encounter for screening for osteoporosis, [...] effect of treatments on patient over time. [facility]-[id number] Procedure Note [facility], Radiology Results Incoming - 08/11/2018 4:20 [...] effect of treatments on patient over time. [id number] Performing Organization Address City/State/Zipcode Phone Number [facility] [address] [place] [address] * URINALYSIS, COMPLETE, WITH REFLEX TO CULTURE (07/21/2018 9:44 AM CDT) Color, UA YELLOW YELLOW [facility] [place] Appearance CLEAR CLEAR [facility] [place] Specific gravity, urine 1.014 1.001 - 1.035 [facility] [place] pH, urine < OR=5.0 5.0 - 8.0 [facility] [place] Glucose, urine NEGATIVE NEGATIVE [facility] [place] Bilirubin, UA NEGATIVE NEGATIVE [facility] [place] Ketones, UA NEGATIVE NEGATIVE [facility] [place] Occult blood, urine NEGATIVE NEGATIVE [facility] [place] Protein, UA NEGATIVE NEGATIVE [facility] [place] Nitrite, UA NEGATIVE NEGATIVE [facility] [place] Leukocyte esterase, UA TRACE (A) NEGATIVE [facility] [place] WBC, UA 0-5 < OR=5 /HPF [facility] [place] RBC, UA 0-2 < OR=2 /HPF [facility] [place] Squamous epithelial 6-10 (A) < OR=5 /HPF [facility] cells, [facility]A [place] Bacteria, UA MODERATE (A) NONE SEEN /HPF [facility] [place] Calcium oxalate crystals, FEW NONE OR FEW /HPF [facility] UA [place] Hyaline casts, UA NONE SEEN NONE SEEN /LPF [facility] [place] Comment FEW MUCOUS THREADS [facility] [place] Reflex CULTURE INDICATED - RESULTS TO [facility] Resulting Agency Comment Performing Organization Information: Site ID: A Name: [facility] Address: [address] [place] [phone] Director: Trinidad Eaton Performing Organization Address City/[facility]/Zipcode [place] [address] * TSH reflex to T4 (07/21/2018 9:44 AM CDT) TSH reflex to FT4 3.25 0.40 - 4.50 mIU/L [facility] [place] Specimen Blood Resulting Agency Comment Performing Organization Information: Site ID: A Name: [facility] Address: [address] [place] [phone] Director: Trinidad Eaton Performing Organization Address City/[facility]/Zipcode Phone [place] [address] * Vitamin D 25 hydroxy level (07/21/2018 9:44 AM CDT) Vitamin D, 25-hydroxy 16 (L) 30 - 100 ng/mL [facility] Comment: [place] Vitamin D Status 25-OH Vitamin D: Deficiency: <20 ng/mL Insufficiency: 20 - 29 ng/mL Optimal: > or=30 ng/mL For 25-OH Vitamin D testing on patients on D2-supplementation and patients for whom quantitation of D2 and D3 fractions is required, the QuestAssureD(TM) 25-OH VIT D, (D2,D3), LC/MS/MS is recommended: order code 31951 (patients >2yrs). For more information on this test, go to: http://education.PellePharm/faq/PWO775 (This link is being provided for informational/educational purposes only.) Specimen Blood Resulting Agency Comment Performing Organization Information: Site ID: A Name: [facility] Address: [address] [place] [phone] Director: Trinidad Eaton Performing Organization Address City/State/Zipcode Phone Number [facility] [place] [address] [place] [address] * CBC with platelet and differential (07/21/2018 9:44 AM CDT) Only the most recent of 7 results within the time period is included. WBC 5.0 3.8 - 10.8 Thousand/uL [facility] [place] RBC 4.50 3.80 - 5.10 Million/uL [facility] [place] HGB 14.2 11.7 - 15.5 g/dL [facility] [place] HCT 41.8 35.0 - 45.0 % [facility] [place] MCV 92.9 80.0 - 100.0 fL [facility] [place] MCH 31.6 27.0 - 33.0 pg [facility] [place] MCHC 34.0 32.0 - 36.0 g/dL [facility] [place] RDW 13.2 11.0 - 15.0 % [facility] [place] Platelet count 276 140 - 400 Thousand/uL [facility] [place] MPV 10.7 7.5 - 12.5 fL [facility] [place] Neutrophils, absolute 2,300 1,500 - 7,800 cells/uL [facility] [place] Lymphocytes, absolute 2,000 850 - 3,900 cells/uL [facility] [place] Monocytes, absolute 510 200 - 950 cells/uL [facility] [place] Eosinophils, absolute 140 15 - 500 cells/uL [facility] [place] Basophils, absolute 50 0 - 200 cells/uL [facility] [place] Neutrophils 46 % [facility] [place] Lymphocytes 40.0 % [facility] [place] Monocytes 10.2 % [facility] [place] Eosinophils 2.8 % [facility] [place] Basophils + RC 1.0 % [facility] [place] Specimen Blood Resulting Agency Comment Performing Organization Information: Site ID: RGA Name: [facility] Address: [address] [place] [phone] Director: Trinidad Eaton Performing Organization Address [facility] Phone Number [facility] [place] [place] [address] * Urine culture (07/21/2018 9:44 AM CDT) Only the most recent of 2 results within the time period is included. Urine culture SEE NOTE [facility] Comment: [place] CULTURE, URINE, ROUTINE MICRO NUMBER:[id number] TEST STATUS: FINAL SPECIMEN SOURCE: URINE SPECIMEN QUALITY:ADEQUATE RESULT: No Growth Resulting Agency Comment Performing Organization Information: Site ID: A Name: [facility] Address: [address] [place] [phone] Director: Trinidad Eaton Performing Organization Address [facility] Phone Number [facility] [place] [address] * Lipid panel (07/21/2018 9:44 AM CDT) Cholesterol, total 156 <200 mg/dL [facility] HDL cholesterol 71 >50 mg/dL [facility] Triglycerides 137 <150 mg/dL [facility] LDL cholesterol 63 mg/dL (calc) [facility] Comment: [place] Reference range: <100 Desirable range <100 mg/dL for primary prevention; <70 mg/dL for patients with CHD or diabetic patients with > or=2 CHD risk factors. LDL-C is now calculated using the Alex-Jerrell calculation, which is a validated novel method providing better accuracy than the Friedewald equation in the estimation of LDL-C. Alex HOYOS et al. FLORY. 2013;310(19): 6018-5458 (http://education.GMG33.com/faq/USC240) Cholesterol/HDL ratio 2.2 <5.0 (calc) [facility] [place] Non-HDL cholesterol 85 <130 mg/dL (calc) [facility] Comment: [place] For patients with diabetes plus 1 major ASCVD risk factor, treating to a non-HDL-C goal of <100 mg/dL (LDL-C of <70 mg/dL) is considered a therapeutic option. Specimen Blood Resulting Agency Comment Performing Organization Information: Site ID: RGA Name: [facility] Address: [address] [place] [phone] Director: Trinidad Eaton Performing Organization Address City/[facility]/Zipcode Phone Number [employer] [address] [address] * Comprehensive metabolic panel (07/21/2018 9:44 AM CDT) Only the most recent of 4 results within the time period is included. Glucose 95 65 - 99 mg/dL [facility] Comment: [place] Fasting reference interval BUN, whole blood 9 7 - 25 mg/dL [facility] [place] Creatinine 0.67 0.60 - 0.93 mg/dL [facility] Comment: [place] For patients >49 years of age, the reference limit for Creatinine is approximately 13% higher for people identified as -Sudanese. EGFR Non-Afr. Sudanese 89 > OR=60 mL/min/1.73m2 [facility] [place] EGFR 103 > OR=60 mL/min/1.73m2 [facility] [place] BUN/creatinine ratio NOT APPLICABLE 6 - 22 (calc) [facility] [place] Sodium 141 135 - 146 mmol/L [facility] [place] Potassium 4.4 3.5 - 5.3 mmol/L [facility] [place] Chloride 108 98 - 110 mmol/L [facility] [place] CO2 25 20 - 32 mmol/L [facility] [place] Calcium 9.4 8.6 - 10.4 mg/dL [facility] [place] Protein 6.5 6.1 - 8.1 g/dL [facility] [place] Albumin, S 4.1 3.6 - 5.1 g/dL [facility] [place] Globulin, total 2.4 1.9 - 3.7 g/dL (calc) [facility] [place] Albumin/globulin ratio 1.7 1.0 - 2.5 (calc) [facility] [place] Total bilirubin 0.6 0.2 - 1.2 mg/dL [facility] [place] Alkaline phosphatase 79 33 - 130 U/L [facility] [place] AST 16 10 - 35 U/L [facility] [place] ALT 16 6 - 29 U/L [facility] [place] Specimen Blood Resulting Agency Comment Performing Organization Information: Site ID: RGA Name: [facility] Address: [address] [place] [phone] Director: Trinidad Eaton Performing Organization Address City/State/Zipcode Phone Number [facility] [address] [address] * ECG 12 lead (07/21/2018 9:29 AM CDT) Ventricular rate 68 [facility] Atrial rate 68 [facility] AL interval 132 [facility] QRSD interval 90 [...] At Performing Organization Address City/State/Zipcode Phone Number [facility] [address] [place] [address] * US FNA W Imaging - Additional Lesions (06/01/2018 12:27 PM PICKLE SOLUTION MAKER) Narrative Performed At EXAMINATION:US FNA W IMAGING, [...] nodule measuring 1.9 cm. Pathology results pending. [id number] Procedure Note Interface, Radiology Results Incoming - 06/02/2018 4:04 PM PICKLE SOLUTION MAKER EXAMINATION: US FNA W IMAGING, US FNA [...] nodule measuring 1.9 cm. Pathology results pending. [id number] Performing Organization Address City/State/[facility] Phone Number [facility] [address] [place] [address] * US FNA W Imaging (06/01/2018 12:26 PM PICKLE SOLUTION MAKER) Narrative Performed At EXAMINATION:US FNA W IMAGING, [...] nodule measuring 1.9 cm. Pathology results pending. [id number] Procedure Note Interface, Radiology Results Incoming - 06/02/2018 4:04 PM PICKLE SOLUTION MAKER EXAMINATION: US FNA W IMAGING, US FNA [...] nodule measuring 1.9 cm. Pathology results pending. [id number] Performing Organization Address City/State/Zipcode Phone Number [facility] [address] [place] [address] * Cytology (non-gynecological) request (06/01/2018 11:30 AM PICKLE SOLUTION MAKER) Only the most recent of 2 results within the time period is included. [facility] [[email or web address] DEPARTMENT OF PATHOLOGY AND GENOMIC MEDICINE Cytology See link below for PDF Lab [facility] [[email or web address]] DEPARTMENT OF (non-gynecological) Report PATHOLOGY AND report GENOMIC MEDICINE Result status This is Final Report for [facility] [[email or web address]] DEPARTMENT OF [id number] PATHOLOGY AND GENOMIC MEDICINE Performing Organization Address City/State/Zipcode Phone Number [facility] [email or web address] DEPARTMENT [place] [address] [place] [address] PATHOLOGY AND GENOMIC MEDICINE * US Thyroid (03/24/2018 12:05 PM PICKLE SOLUTION MAKER) Narrative Performed At EXAMINATION:US THYROID [facility] [...] pts *Echogenicity: Hypoechoic - 2 pts *Shape: Kxrfv-mrpe-hyeq - 0 pts *Margin: Smooth - 0 pts *Echogenic foci: None or large comet-tail artifacts - 0 pts TOTAL POINTS: 4 (TR 4) NODULE: 2 *Location: Mid right lobe *Size: 1.8 x 1.2 x 0.9 cm *Composition: Solid or almost entirely solid - 2 pts *Echogenicity: Hypoechoic - 2 pts *Shape: Ggcur-pbbi-ryno - 0 pts *Margin: Lobulated or irregular - 2 pts *Echogenic foci: None or large comet-tail artifacts - 0 pts TOTAL POINTS: 6 (TR 4) NODULE: 3 *Location: Inferior right lobe *Size: 2.3 x 1.7 x 2.0 cm *Composition: Solid or almost entirely solid - 2 pts *Echogenicity: Hypoechoic - 2 pts *Shape: Pasgp-vuco-gtos - 0 pts *Margin: Smooth - 0 pts *Echogenic foci: Punctate echogenic foci - 3 pts TOTAL POINTS: 7 (TR 5) 3. The following nodules were detected on the left: NODULE: 1 *Location: Mid left lobe *Size: 1.9 x 1.1 x 0.9 cm *Composition: Solid or almost entirely solid - 2 pts *Echogenicity: Hypoechoic - 2 pts *Shape: Dozfe-pnjl-pzwy - 0 pts *Margin: Lobulated or irregular - 2 pts *Echogenic foci: Punctate echogenic foci - 3 pts TOTAL POINTS: 9 (TR 5) NODULE: 2 *Location: Inferior left lobe *Size: 1.2 x 0.9 x 1.0 cm *Composition: Solid or almost entirely solid - 2 pts *Echogenicity: Hyperechoic or Isoechoic - 1 pt *Shape: Sxcxs-chhf-pukh - 0 pts *Margin: Smooth - 0 [...] 1 on the left. Mejia Kim MD Pulp Grinder And Blender, PGY - 2 I personally reviewed the images and the resident's findings and agree with the final report. [id number] Procedure Note Hm Interface, Radiology Results Incoming - 03/24/2018 4:46 PM PICKLE SOLUTION MAKER EXAMINATION: US THYROID CLINICAL HISTORY: 72 years [...] Echogenicity: Hypoechoic - 2 pts * Shape: Omjcv-pasj-sizl - 0 pts * Margin: Smooth - 0 pts * Echogenic foci: None or large comet-tail artifacts - 0 pts TOTAL POINTS: 4 (TR 4) NODULE: 2 * Location: Mid right lobe * Size: 1.8 x 1.2 x 0.9 cm * Composition: Solid or almost entirely solid - 2 pts * Echogenicity: Hypoechoic - 2 pts * Shape: Xptyw-zeps-hhql - 0 pts * Margin: Lobulated or irregular - 2 pts * Echogenic foci: None or large comet-tail artifacts - 0 pts TOTAL POINTS: 6 (TR 4) NODULE: 3 * Location: Inferior right lobe * Size: 2.3 x 1.7 x 2.0 cm * Composition: Solid or almost entirely solid - 2 pts * Echogenicity: Hypoechoic - 2 pts * Shape: Wicor-ddqq-lqvf - 0 pts * Margin: Smooth - [...] Echogenicity: Hypoechoic - 2 pts * Shape: Wahiq-boch-gqcr - 0 pts * Margin: Lobulated or irregular - 2 pts * Echogenic foci: Punctate echogenic foci - 3 pts TOTAL POINTS: 9 (TR 5) NODULE: 2 * Location: Inferior left lobe * Size: 1.2 x 0.9 x 1.0 cm * Composition: Solid or almost entirely solid - 2 pts * Echogenicity: Hyperechoic or Isoechoic - 1 pt * Shape: Jszhb-nfpq-rptv - 0 pts * Margin: Smooth - [...] 1 on the left. Mejia Kim MD Pulp Grinder And Blender, PGY - 2 I personally reviewed the images and the resident's findings and agree with the final report. [id number] Performing Organization Address City/State/Zipcode Phone Number [facility] [address] [place] [address] * Thyroid stimulating hormone (03/07/2018 12:00 AM PICKLE SOLUTION MAKER) TSH 3.100 0.450 - 4.500 uIU/mL [facility] Narrative Performed At Performed at:01 - [facility] [address] [place], [id number] Motel Operator: Brady Zapien MD, Phone:[phone] Performing Organization Address [facility] Phone Number [facility] * T4, free (03/07/2018 12:00 AM PICKLE SOLUTION MAKER) T4, free 1.42 0.82 - 1.77 ng/dL [facility] Narrative Performed At Performed at: - [facility] [address] [place], [id number] Motel Operator: Brady Zapien MD, Phone:[phone] Performing Organization Address [facility] Phone Number [facility] * Hemoglobin A1c (03/07/2018 12:00 AM PICKLE SOLUTION MAKER) Hemoglobin A1C 5.4 4.8 - 5.6 % [facility] Comment: Prediabetes: 5.7 - 6.4 Diabetes: >6.4 Glycemic control for adults with diabetes: <7.0 Narrative Performed At Performed at: [facility] [address] [place], [id number] Motel Operator: Brady Zapien MD, Phone:[phone] Performing Organization Address [facility] Phone Number [facility] * FL UGI W [...] atelectasis. Spondylosis. Partially visualized lumbar fusion hardware. [id number] Procedure Note Interface, Radiology Results Incoming - [...] atelectasis. Spondylosis. Partially visualized lumbar fusion hardware. [id number] Performing Organization Address [facility] Phone Number [facility] [address] [place] [address] * Estimated GFR (01/20/2018 4:00 AM CDT) Only the most recent of 3 results within the time period is included. Estimated GFR 89 mL/min/1.73 m2 [facility] DEPARTMENT OF Comment: PATHOLOGY AND [employer]itsInte GENOMIC MEDICINE rpretation G1 >=90 Normal or high G2 60-89Mildly decreased F6z57-84 Mildly to moderately decreased M1p85-10 Moderately to severely decreased G4 15-29Severely decreased G5 <15Kidney failure The eGFR was calculated using the Chronic Kidney Disease Epidemiology Collaboration (CKD-EPI) equation. Interpretation is based on recommendations of the National Kidney Foundation-Kidney Disease Outcomes Quality Initiative (NKF-KDOQI) published in 2014. Specimen Plasma specimen Performing Organization Address [facility] Phone Number [facility] DEPARTMENT [place] [phone] PATHOLOGY AND GENOMIC MEDICINE * Basic metabolic panel (01/20/2018 4:00 AM CDT) Only the most recent of 3 results within the time period is included. Sodium 143 135 - 148 mEq/L [facility] DEPARTMENT OF PATHOLOGY AND GENOMIC MEDICINE Potassium 4.5 3.5 - 5.0 mEq/L [facility] DEPARTMENT OF PATHOLOGY AND GENOMIC MEDICINE Chloride 105 98 - 112 mEq/L [facility] DEPARTMENT OF PATHOLOGY AND GENOMIC MEDICINE CO2 25 24 - 31 mEq/L [facility] DEPARTMENT OF PATHOLOGY AND GENOMIC MEDICINE Anion gap 13@ANIO 7 - 15 mEq/L [facility] DEPARTMENT OF PATHOLOGY AND GENOMIC MEDICINE BUN 8 8 - 23 mg/dL [facility] DEPARTMENT OF PATHOLOGY AND GENOMIC MEDICINE Creatinine 0.66 0.50 - 0.90 mg/dL [facility] DEPARTMENT OF PATHOLOGY AND GENOMIC MEDICINE Glucose 131 (H) 65 - 99 mg/dL [facility] DEPARTMENT OF PATHOLOGY AND GENOMIC MEDICINE Calcium 9.4 8.8 - 10.2 mg/dL [facility] DEPARTMENT OF PATHOLOGY AND GENOMIC MEDICINE Specimen Plasma specimen Performing Organization Address City/[facility] Phone Number [facility] [place] [address] PATHOLOGY AND GENOMIC MEDICINE * XR Chest [...] midline at T8 level Single view chest [id number] Procedure Note Hm Interface, Radiology Results Incoming [...] midline at T8 level Single view chest [id number] Performing Organization Address [facility] Phone Number [address] [address] * Sodium level, syringe (01/19/2018 3:33 PM CDT) Only the most recent of 2 results within the time period is included. Sodium, syringe 144 135 - 148 mEq/L [facility] DEPARTMENT OF PATHOLOGY AND GENOMIC MEDICINE Specimen Blood Performing Organization Address City/[facility] Phone Number [facility] DEPARTMENT OF [address] [place] [address] PATHOLOGY AND GENOMIC MEDICINE * Potassium, syringe (01/19/2018 3:33 PM CDT) Only the most recent of 2 results within the time period is included. Potassium, syringe 3.7 3.5 - 5.0 mEq/L [facility] DEPARTMENT OF PATHOLOGY AND GENOMIC MEDICINE Specimen Blood Performing Organization Address [facility]/Zipcode Phone Number [facility] [place] [address] PATHOLOGY AND GENOMIC MEDICINE * Lactic acid, syringe (01/19/2018 3:33 PM CDT) Only the most recent of 2 results within the time period is included. Lactic acid, syringe 3.3 (H) 0.5 - 2.2 mmol/L [facility] DEPARTMENT OF PATHOLOGY AND GENOMIC MEDICINE Specimen Blood Performing Organization Address City/[facility] Phone Number [facility] [place] [address] PATHOLOGY AND GENOMIC MEDICINE * Ionized calcium, arterial (01/19/2018 3:33 PM CDT) Only the most recent of 2 results within the time period is included. Ionized calcium, arterial 1.21 1.11 - 1.32 mmol/L [facility] DEPARTMENT OF PATHOLOGY AND GENOMIC MEDICINE Specimen Blood Performing Organization Address [facility] [place] [address] PATHOLOGY AND GENOMIC MEDICINE * Hemoglobin, syringe (01/19/2018 3:33 PM CDT) Only the most recent of 2 results within the time period is included. Hemoglobin, syringe 12.6 12.0 - 16.0 g/dL [facility] DEPARTMENT OF PATHOLOGY AND GENOMIC MEDICINE Specimen Blood Performing Organization Address [facility] Phone Number [facility] [place] [address] PATHOLOGY AND GENOMIC MEDICINE * Glucose level, syringe (01/19/2018 3:33 PM CDT) Only the most recent of 2 results within the time period is included. Glucose, syringe 146 (H) 65 - 99 mg/dL [facility] DEPARTMENT OF PATHOLOGY AND GENOMIC MEDICINE Specimen Blood Performing Organization Address City/[facility] Phone Number [facility] [place] [address] PATHOLOGY AND GENOMIC MEDICINE * Arterial blood gas, corrected (01/19/2018 3:33 PM CDT) Only the most recent of 2 results within the time period is included. pH, arterial 7.39 7.35 - 7.45 [facility] DEPARTMENT OF PATHOLOGY AND GENOMIC MEDICINE pCO2, arterial 40 35 - 45 mmHg [facility] DEPARTMENT OF PATHOLOGY AND GENOMIC MEDICINE pO2, arterial 229 (H) 80 - 90 mmHg [facility] DEPARTMENT OF PATHOLOGY AND GENOMIC MEDICINE Temperature, Celsius 36.3 Degrees C [facility] DEPARTMENT OF PATHOLOGY AND GENOMIC MEDICINE O2 saturation, arterial 99 95 - 100 % [facility] DEPARTMENT OF PATHOLOGY AND GENOMIC MEDICINE pH, arterial corrected 7.40 [facility] DEPARTMENT OF PATHOLOGY AND GENOMIC MEDICINE pCO2, arterial corrected 39 mmHg [facility] DEPARTMENT OF PATHOLOGY AND GENOMIC MEDICINE pO2, arterial corrected 226 mmHg [facility] DEPARTMENT OF PATHOLOGY AND GENOMIC MEDICINE Base excess, arterial 0 -2 - 2 mEq/L [facility] DEPARTMENT OF PATHOLOGY AND GENOMIC MEDICINE Specimen Blood Performing Organization Address City/[facility] [place] [address] PATHOLOGY AND GENOMIC MEDICINE * Type and screen (01/10/2018 2:51 PM CDT) ABO grouping A [facility] DEPARTMENT OF PATHOLOGY AND GENOMIC MEDICINE Rh type NEG [facility] DEPARTMENT OF PATHOLOGY AND GENOMIC MEDICINE Antibody screen (gel) NEG [facility] DEPARTMENT OF PATHOLOGY AND GENOMIC MEDICINE Specimen Blood Performing Organization Address [facility] [place] [address] PATHOLOGY AND GENOMIC MEDICINE * Urinalysis screen and microscopy, with reflex to culture (10/19/2017 11:00 AM CDT) Specimen site Clean catch [facility] DEPARTMENT OF PATHOLOGY AND GENOMIC MEDICINE Color, UA Yellow [facility] DEPARTMENT OF PATHOLOGY AND GENOMIC MEDICINE Appearance, UA Clear [facility] DEPARTMENT OF PATHOLOGY AND GENOMIC MEDICINE Specific gravity, UA 1.020 1.001 - 1.035 [facility] DEPARTMENT OF PATHOLOGY AND GENOMIC MEDICINE pH, UA 5.0 5.0 - 8.5 [facility] DEPARTMENT OF PATHOLOGY AND GENOMIC MEDICINE Protein, UA Negative Negative [facility] DEPARTMENT OF PATHOLOGY AND GENOMIC MEDICINE Glucose, UA Negative Negative [facility] DEPARTMENT OF PATHOLOGY AND GENOMIC MEDICINE Ketones, UA Negative Negative [facility] DEPARTMENT OF PATHOLOGY AND GENOMIC MEDICINE Bilirubin, UA Negative Negative [facility] DEPARTMENT OF PATHOLOGY AND GENOMIC MEDICINE Blood, UA Negative Negative [facility] DEPARTMENT OF PATHOLOGY AND GENOMIC MEDICINE Nitrite, UA Negative Negative [facility] DEPARTMENT OF PATHOLOGY AND GENOMIC MEDICINE Urobilinogen, UA <2.0 <2.0 [facility] DEPARTMENT OF PATHOLOGY AND GENOMIC MEDICINE Leukocyte esterase, UA Negative Negative [facility] DEPARTMENT OF PATHOLOGY AND GENOMIC MEDICINE Epithelial cells, UA <1 /HPF [facility] DEPARTMENT OF PATHOLOGY AND GENOMIC MEDICINE WBC, UA 1 0 - 4 /HPF [facility] DEPARTMENT OF PATHOLOGY AND GENOMIC MEDICINE RBC, UA None seen 0 - 5 /HPF [facility] DEPARTMENT OF PATHOLOGY AND GENOMIC MEDICINE Bacteria, UA Few None seen [facility] DEPARTMENT OF PATHOLOGY AND GENOMIC MEDICINE Yeast, UA None seen [facility] DEPARTMENT OF PATHOLOGY AND GENOMIC MEDICINE Yeast with pseudohyphae, None seen [facility] DEPARTMENT [facility] PATHOLOGY AND GENOMIC MEDICINE Specimen Urine Performing Organization Address City/State/Zipcode Phone Number [facility] DEPARTMENT OF [address] [place] [address] PATHOLOGY AND GENOMIC MEDICINE * Lactic acid level, SEPSIS - Now and repeat 2x every 3 hours (10/19/2017 11:00 AM CDT) Lactic acid 1.7 0.5 - 2.2 mmol/L [facility] DEPARTMENT OF PATHOLOGY AND GENOMIC MEDICINE Specimen Blood Performing Organization Address City/[facility]/Zipcode Phone Number [facility] [address] [place] [address] PATHOLOGY AND GENOMIC MEDICINE * US Gallbladder [...] and dependent upon hydration status and respiration) [id number] Procedure Note Interface, Radiology Results Incoming - [...] and dependent upon hydration status and respiration) [id number] Performing Organization Address City/State/Zipcode Phone Number [facility] [address] [place] [address] * Consult to Sepsis Response Team (10/19/2017 [...] At Examination:CT ABDOMEN PELVIS WO [facility] Clinical History: abd pain Comparison: None. Findings: [...] Left nonobstructing intrarenal calculi. 3. Fatty liver. [id number] Procedure Note [facility], Radiology Results Incoming - 10/19/2017 3:16 [...] Left nonobstructing intrarenal calculi. 3. Fatty liver. [id number] Performing Organization Address City/[facility]/[place] [address] * Estimated GFR (10/19/2017 2:02 AM CDT) Only the most recent of 2 results within the time period is included. GFR Non Af Amer 71 mL/min/1.73 m2 [facility] DEPARTMENT OF PATHOLOGY AND GENOMIC MEDICINE GFR Af Amer 86 mL/min/1.73 m2 [facility] DEPARTMENT OF Comment: PATHOLOGY AND Chronic kidney [...] Americans. Specimen Plasma specimen Performing Organization Address City/[facility]/[place] [address] PATHOLOGY AND GENOMIC MEDICINE * Lipase level (10/19/2017 2:02 AM CDT) Lipase 25 13 - 60 U/L [facility] DEPARTMENT OF PATHOLOGY AND GENOMIC MEDICINE Specimen Plasma specimen Performing Organization Address [facility] [place] [address] PATHOLOGY AND GENOMIC MEDICINE * CBC hemogram (08/18/2017 3:40 PM CDT) WBC 7.03 4.50 - 11.00 k/uL [facility] DEPARTMENT OF PATHOLOGY AND GENOMIC MEDICINE RBC 4.11 (L) 4.20 - 5.50 m/uL [facility] DEPARTMENT OF PATHOLOGY AND GENOMIC MEDICINE HGB 12.8 12.0 - 16.0 g/dL [facility] DEPARTMENT OF PATHOLOGY AND GENOMIC MEDICINE HCT 38.8 37.0 - 47.0 % [facility] DEPARTMENT OF PATHOLOGY AND GENOMIC MEDICINE MCV 94.4 82.0 - 100.0 fL [facility] DEPARTMENT OF PATHOLOGY AND GENOMIC MEDICINE MCH 31.1 27.0 - 34.0 pg [facility] DEPARTMENT OF PATHOLOGY AND GENOMIC MEDICINE MCHC 33.0 31.0 - 37.0 g/dL [facility] DEPARTMENT OF PATHOLOGY AND GENOMIC MEDICINE RDW - SD 45.0 37.0 - 55.0 fL [facility] DEPARTMENT OF PATHOLOGY AND GENOMIC MEDICINE MPV 10.6 8.8 - 13.2 fL [facility] DEPARTMENT OF PATHOLOGY AND GENOMIC MEDICINE Platelet count 317 150 - 400 k/uL [facility] DEPARTMENT OF PATHOLOGY AND GENOMIC MEDICINE Nucleated RBC 0.00 /100 WBC [facility] DEPARTMENT OF PATHOLOGY AND GENOMIC MEDICINE Specimen Blood Performing Organization Address City/[facility] Phone Number [facility] [address] [place] [address] PATHOLOGY AND GENOMIC MEDICINE * ECG Pre/Post Op (08/18/2017 3:31 PM CDT) Ventricular rate 71 [facility] Atrial rate 71 [facility] AL interval 138 [facility] QRSD interval 92 [facility] QT interval 386 [facility] QTC interval 419 [facility] P axis 1 64 [facility] QRS axis 1 48 [facility] T wave axis 64 [facility] EKG impression Normal sinus rhythm-Possible [facility] Left atrial enlargement-Borderline ECG-In automated comparison with ECG of 13-MAR-2017 20:45,-No significant change was found- Performing Organization Address City/[facility] Phone Number [facility] [address] [place] [address] after 08/13/2017 Insurance Payer Benefit Subscriber ID Type Phone Address Plan / Group UHC MEDICARE UHC xxxxxxxxx O MEDICARE HMO/PPO Advance Directives Patient has advance care planning documents on file. For more information, jovani e contact: Talon Hudson [address] [place] [address]
--- NOTE | 2018-08-14 18:16 | NUR ---
[facility] CALLED FOR TRANSPORT 45MIN ETA
--- NOTE | 2018-08-14 18:31 | Diagnostic Imaging Report ---
EXAM: CT of the abdomen and pelvis WITHOUT contrast HISTORY: Severe nausea, vomiting, abdominal pain COMPARISON: None available. TECHNIQUE: The abdomen and pelvis were scanned utilizing a multidetector helical scanner. Coronal and sagittal reformats are available. PROTOCOL: Renal colic IV CONTRAST: None, which limits sensitivity and specificity of evaluation of the soft tissues and vascular structures. ORAL CONTRAST: None, which limits sensitivity and specificity of evaluation of the bowel. RADIATION DOSE: Total DLP: 792.64 mGy*cm Estimated effective dose: (DLP x 0.015 x size factor) Dose modulation, iterative reconstruction, and/or weight based adjustment of the mA/kV was utilized to reduce the radiation dose to as low as reasonably achievable. COMPLICATIONS: None FINDINGS: Motion artifact partially limits sensitivity and specificity of the exam. LOWER THORAX: Partially visualized at the anterior right para median mediastinum a 2.3 cm hypodensity. Right subcentimeter calcified granuloma. Mild bibasilar atelectasis versus scarring. HEPATOBILIARY: No definite focal hepatic lesions. Scattered punctate calcifications, compatible with remote granulomatous disease/infection. No biliary ductal dilatation. The gallbladder is unremarkable. SPLEEN: No splenomegaly. Scattered punctate calcifications, compatible with remote granulomatous disease/infection. PANCREAS: No focal masses or ductal dilatation. ADRENALS: No adrenal nodule. KIDNEYS/URETERS: No hydronephrosis or solid mass lesion identified. A punctate calcification within the left kidney (axial image 34). Multiple pelvic calcifications including in the region of the distal ureters, but none that are definitively within either ureter and there are no signs of urinary tract obstruction. PELVIC ORGANS/BLADDER: The urinary bladder is predominantly decompressed, limiting evaluation. PERITONEUM / RETROPERITONEUM: No free air or fluid. GI TRACT: On limited evaluation of the gastrointestinal tract, the distal esophageal wall appears thickened. The stomach is decompressed, which limits evaluation.. The visualized portion of the presumed appendix appears normal. LYMPH NODES: No pathologically enlarged lymph nodes. VESSELS: Scattered mild atherosclerotic vascular calcifications. BONES: No aggressive osseous lesion or acute fracture. Posterior fusion from L3 to S1 severe degenerative disc changes at L2-3. SOFT TISSUES: Ventral midline abdominal scar. IMPRESSION: 1. No evidence of obstruction or ileus. 2. Findings suggestive of esophagitis. 3. Punctate nonobstructing left renal stone. 4. Indeterminate, partially visualized, anterior mediastinal hyperdensity, recommend a short-term follow-up nonemergent CT of the chest with contrast for further characterization. Signed by: Dr. Alhaji Landaverde D.O., M.M.M. on 08/14/2018 6:28 PM
--- NOTE | 2018-08-14 19:25 | NUR ---
PT IS RESTING IN BED. NO RESPIRATORY DISTRESS NOTED. BED IN THE LOWEST POSITION, LOCKED, AND CALL LIGHT WITHIN REACH. WILL CONTINUE TO MONITOR.
[2018-08-14 20:00] VITALS: BP 136/65
--- NOTE | 2018-08-14 21:29 | NUR ---
PT REFUSE MIDNIGHT VITALS AND 0200 LAB DRAW FOR CARDIAC ENZYMES. PER PT SHE WANTS TO REST. WILL CONTINUE TO MONITOR.
--- NOTE | 2018-08-14 21:29 | NUR ---
PT REFUSE TO ANSWER FAMILY HISTORY QUESTIONS. PER PT IT IS NONE OF THE GOVERNMENT AND HOSPITAL BUSINESS. ALL OTHER ADMISSION QUESTIONS COMPLETE. BED IN THE LOWEST POSITION, LOCKED, AND CALL LIGHT WITHIN REACH. WILL CONTINUE TO MONITOR.
[2018-08-14 22:43] VITALS: BP 136/65
[2018-08-14 22:59] VITALS: BP 136/65
[2018-08-15 05:26] VITALS: BP 126/61
[2018-08-15] MEDS: SODIUM CHLORIDE 0.9% 1000ML 1,000 ML IV SCH ×3 (05:59→21:56)
[2018-08-15 08:00] VITALS: BP 125/60
[2018-08-15 09:15] VITALS: BP 125/60
[2018-08-15] MEDS ORDERED: ACETAMINOPHEN 325 MG TAB PO PRN (11:30)
[2018-08-15] MEDS: PROMETHAZINE 25MG/ NS 50ML (IV) IV PRN (11:36)
[2018-08-15 11:48] VITALS: BP 115/60
[2018-08-15] MEDS ORDERED: HYDROCODONE/APAP 5MG-325MG TAB PO PRN (14:15)
[2018-08-15] MEDS ORDERED: PANTOPRAZOLE SOD 40 MG TABEC PO SCH (14:15)
[2018-08-15 16:00] VITALS: BP 117/59
--- NOTE | 2018-08-15 17:30 | NUR ---
Dr. Cowan had consulted Kevyn Cooper for gastritis. Kevyn Cooper called Dr. Cowan and states he is unavaible, consult has been cancelled.
[2018-08-15] MEDS: ENOXAPARIN SOD INJ 40 MG/0.4 ML SYR SC SCH (18:15)
[2018-08-15] MEDS: PANTOPRAZOLE SOD 40 MG TABEC PO SCH (18:15)
[2018-08-15 18:25] LABS: BASOPHILS # (AUTO) 0.1 (0.0-0.1); BASOPHILS % 0.7 % (0.0-1.0); EOSINOPHILS # (AUTO) 0.2 (0.0-0.4); EOSINOPHILS % 2.7 % (0.0-6.0); HEMOGLOBIN 13.1 g/dL (12.0-16.0); LYMPHOCYTES # (AUTO) 3.3 (1.0-3.2); LYMPHOCYTES % 48.8 % (18.0-39.1); MEAN CORPUSCULAR HEMOGLOBIN 30.5 pg (28-32); MEAN CORPUSCULAR HGB CONC 31.2 g/dL (31-35); MEAN CORPUSCULAR VOLUME 97.9 fL (81-99); MONOCYTES # (AUTO) 0.5 (0.2-0.8); MONOCYTES % 7.7 % (4.4-11.3); NEUTROPHILS # (AUTO) 2.7 (2.1-6.9); NEUTROPHILS % 39.8 % (38.7-80.0); PLATELET COUNT 266 x10e3/uL (140-360); RED BLOOD COUNT 4.29 x10e6/uL (3.6-5.1); RED CELL DISTRIBUTION WIDTH 13.1 % (11.7-14.4)
[2018-08-15 18:48] LABS: ALANINE AMINOTRANSFERASE 17 IU/L (0-55); ALBUMIN 3.3 g/dL (3.5-5.0); ALBUMIN/GLOBULIN RATIO 1.3 (0.8-2.0); ALKALINE PHOSPHATASE 76 IU/L (40-150); ANION GAP 12.2 mmol/L (8-16); BLOOD UREA NITROGEN 7 mg/dL (7-26); BUN/CREATININE RATIO 10 (6-25); CALCIUM 9.3 mg/dL (8.4-10.2); CARBON DIOXIDE 24 mmol/L (22-29); CHLORIDE 110 mmol/L (98-107); CREATININE, SERUM 0.71 mg/dL (0.57-1.11); EST GLOMERULAR FILTRATION RATE > 60 ML/MIN (60-); GLUCOSE 120 mg/dL (74-118); POTASSIUM 4.2 mmol/L (3.5-5.1); SODIUM 142 mmol/L (136-145)
--- NOTE | 2018-08-15 19:10 | NUR ---
Patient visited during nursing rounds. Patient alert and oriented x3. No distress or discomfort noted. Ambulatory in room prn. On IVF (NS @ 100ml/hr). Patient stated she feels so much better and denies nausea or vomiting today. Call vela within reach. Will monitor closely.
[2018-08-15 19:13] LABS: CREATINE KINASE MB 3.9 ng/mL (0-5.0)
[2018-08-15 20:00] VITALS: BP 110/51
--- NOTE | 2018-08-15 20:10 | NUR ---
Called Dr. Cowan and informed him of troponin level of 8.206. Informed MD that patient is asymptomatic and V/S stable (BP -110/51, HR - 74). MD aware and gave following orders: STAT EKG, 2 more sets of Troponin Q6h apart, ASA 325mg PO x1 dose STAT, and start pt on Heparin drip (for ACS protocol) after drawing baseline PTT, PT/INR.
[2018-08-15] MEDS ORDERED: ASPIRIN 81 MG CHEW TAB PO ONE (20:17)
[2018-08-15] MEDS ORDERED: HEPARIN 25,000U/0.45% NS 250ML 900 UNIT in Premix Bag 250 ML IV SCH (20:22)
[2018-08-15] MEDS ORDERED: CLOPIDOGREL BISULFATE 75 MG TAB PO STA (21:03)
--- NOTE | 2018-08-15 21:04 | NUR ---
Called Pravin Gomez and informed him of new consult (ordered by Dr. Cowan) for elevated troponin (8.206). MD aware and ordered to give pt x1 dose of Plavix 600mg PO.
[2018-08-15] MEDS ORDERED: CLOPIDOGREL BISULFATE 300 MG TAB-DO NOT STOCK PO ONE (21:15)
[2018-08-15 21:34] LABS: INR 0.95; PROTHROMBIN TIME 13.2 seconds (11.9-14.5)
[2018-08-15 21:35] LABS: PARTIAL THROMBOPLASTIN TIME 29.8 seconds (23.8-35.5)
--- NOTE | 2018-08-15 21:51 | NUR ---
Called Dr. Aburto and obtained order for telemetry for patient.
[2018-08-16] VITALS: BP 135/70
--- NOTE | 2018-08-16 00:24 | History and Physical ---
CHIEF COMPLAINT: Nausea, vomiting, and dehydration. HISTORY OF PRESENT ILLNESS: This is a 72-year-old female with known history of achalasia, of note had surgery in the past, who also has a history of gastritis, acid reflux, comes into the ED from an outside facility with nausea, vomiting, and abdominal pain ongoing for the last two weeks. The patient reports that she has been around some sick contacts with her grand kids and mostly they have viral gastritis. Of note, came in to be further evaluated. The patient has not been eating well. She was found to be dehydrated on evaluation. She denies any chest pain or palpitations. She denies any fever, cough or congestion at home. She does endorse nausea, vomiting. The patient was seen and evaluated at bedside on the medical floor, currently doing well with no other issues at this time. REVIEW OF SYSTEMS: 1. Pertinent positives: Abdominal pain, nausea, vomiting, decreased oral intake. 2. Pertinent negative: Denies any chest pain, palpitation, dysuria, hematuria, frequency, urgency, lightheadedness, dizziness, cough, congestion, fever, or any other complaints. 3. The rest of 14-point review of systems have been reviewed with the patient and are negative. ALLERGIES: PENICILLINS AND SIMVASTATIN. HOME MEDICATIONS: Albuterol inhaler as well as prednisone 60 mg daily for four days according to the records. PAST MEDICAL HISTORY: History of achalasia with repair in the past, history of GERD, acid reflux, esophagitis in the past. SURGICAL HISTORY: She had achalasia surgical repair in the past. FAMILY HISTORY: Hypertension, diabetes. SOCIAL HISTORY: No drugs. No alcohol. Does not smoke. Good social support. LAB FINDINGS: Show white count 6, hemoglobin is 13.7, hematocrit is 41, platelets 277. Urinalysis was found to be negative. Sodium 141, potassium 4.1, chloride 109, bicarb 26, CK is 104, creatinine is 0.4, BUN 8, glucose 97. Troponins were negative. Albumin 3.6, ALT 15, amylase 40, AST 24, total bilirubin was 0.7, GTT 9. EKG showed no acute findings. IMAGING STUDIES: Abdominal x-ray shows no acute radiographic abnormalities. CT abdomen and pelvis showed no evidence of obstruction or ileus. Findings suggestive of esophagitis. Indeterminate partially visualized anterior mediastinal hyperdensity recommend short-term followup nonemergent CT scan with contrast for further characterization. I discussed this with the patient. She is to follow up with an outpatient with her PCP. The patient verbalized understanding and PHYSICAL EXAMINATION: VITAL SIGNS: Temperature is 97, pulse 53, respiratory rate is 18, blood pressure 117/59, pulse ox 98% on room air. GENERAL: No acute distress. Alert and oriented x3, cooperative on examination. HEENT: Head is atraumatic and normocephalic. Eyes; pupils are equal, round, and reactive to light bilaterally. Extraocular movements intact bilaterally. NECK: Supple. Good range of motion. Throat, no evidence of erythema or exudate in the posterior pharynx. Has poor dentition. PULMONARY: Clear to auscultation bilaterally. No wheezing, rales, or rhonchi. No crackles appreciated. CARDIOVASCULAR: Positive S1, S2. No murmurs, rubs, or gallops appreciated. ABDOMEN: Soft, nondistended, and nontender to palpation. Bowel sounds present. MUSCULOSKELETAL: Strength is 5/5 throughout. No evidence of any muscle deficits on examination. No weakness appreciated. NEUROLOGICAL: Cranial nerves II through XII grossly intact. No evidence of any neurological deficits on exam. SKIN: Intact. Warm to touch. Good cap refill. PSYCHIATRIC: Normal affect and mood. EXTREMITIES: No edema. Good range of motion throughout. IMPRESSION: 1. Nausea, vomiting with dehydration. 2. Abdominal pain with history of esophagitis and gastritis. 3. Morbid obesity. 4. Decreased oral intake. PLAN: At this time, continue with IV fluids, pain control, antinausea medication. Clear liquid diet advance as tolerated. GI consultation. Resume same home medications. Lovenox for DVT prophylaxis. Encourage ambulation. Add Protonix 40 mg p.o. b.i.d. MD MILES Reyes/UY /[id number]
--- NOTE | 2018-08-16 00:28 | NUR ---
Patient refused for another IV stick and wanted only the heparin drip to run on current IV (RFA 22g). Patient refused for IVF to run and stated she feels she is alright and will drink lots of water.
--- NOTE | 2018-08-16 00:37 | NUR ---
Dr. Aburto notified Troponin level at this time was <0.001. Asked MD if Heparin drip still needed and MD replied keep Heparin drip running (900 units/hr) and will check patient in the morning (08/16/18) during rounds.
[2018-08-16 04:00] VITALS: BP 116/56
[2018-08-16 06:51] LABS: BASOPHILS # (AUTO) 0.1 (0.0-0.1); BASOPHILS % 0.7 % (0.0-1.0); EOSINOPHILS # (AUTO) 0.2 (0.0-0.4); HEMOGLOBIN 11.9 g/dL (12.0-16.0); LYMPHOCYTES # (AUTO) 2.8 (1.0-3.2); LYMPHOCYTES % 41.9 % (18.0-39.1); MEAN CORPUSCULAR HEMOGLOBIN 31.1 pg (28-32); MEAN CORPUSCULAR HGB CONC 33.1 g/dL (31-35); MONOCYTES # (AUTO) 0.6 (0.2-0.8); MONOCYTES % 9.6 % (4.4-11.3); NEUTROPHILS % 44.5 % (38.7-80.0); PLATELET COUNT 243 x10e3/uL (140-360); RED BLOOD COUNT 3.83 x10e6/uL (3.6-5.1)
[2018-08-16 07:07] LABS: ALANINE AMINOTRANSFERASE 15 IU/L (0-55); ALBUMIN/GLOBULIN RATIO 1.3 (0.8-2.0); ALKALINE PHOSPHATASE 69 IU/L (40-150); ANION GAP 7.8 mmol/L (8-16); BLOOD UREA NITROGEN 7 mg/dL (7-26); BUN/CREATININE RATIO 10 (6-25); CARBON DIOXIDE 27 mmol/L (22-29); CHLORIDE 109 mmol/L (98-107); EST GLOMERULAR FILTRATION RATE > 60 ML/MIN (60-); GLUCOSE 99 mg/dL (74-118); POTASSIUM 3.8 mmol/L (3.5-5.1); SODIUM 140 mmol/L (136-145)
--- NOTE | 2018-08-16 07:30 | NUR ---
REC'D PT ASLEEP, CHEST MOVING UP AND DOWN WITHOUT NO S/S OF DISTRESS. SIDE RAILS UP X2, BED IN LOWEST POSITION, CALL ALFONSO WITHIN REACH.
[2018-08-16 07:39] VITALS: BP 134/63
[2018-08-16] MEDS: PANTOPRAZOLE SOD 40 MG TABEC PO SCH ×2 (08:20→16:40)
--- NOTE | 2018-08-16 08:52 | NUR ---
DR. SINHA D/C HEPARIN IV. D/C HEPARIN IV. NO COMPLICATIONS TO STOPPING HEPARIN IV.
--- NOTE | 2018-08-16 09:10 | NUR ---
DR. SINHA D/C TELEMETRY PER PT DIAGNOSIS.
--- NOTE | 2018-08-16 09:20 | NUR ---
DR. CHERYL Iverson FLUIDS.
[2018-08-16 09:44] VITALS: BP 134/63
[2018-08-16 11:41] VITALS: BP 149/68
--- NOTE | 2018-08-16 14:25 | NUR ---
COMPUTER SYSTEMS SOFTWARE ARCHITECT NOTIFIED NURSE THAT PT REFUSED HER ECHO. COMPUTER SYSTEMS SOFTWARE ARCHITECT NOTIFIED ABOUT PT REFUSAL. PT STATED, "I DO NOT NEED ANY OF THAT, I AM GOOD."
--- NOTE | 2018-08-16 15:30 | NUR ---
PT UPSET BECAUSE SHE IS STILL AT HOSPITAL AND WANTS TO GO HOME. TOLD PT THAT SHE HAS TO WAIT FOR DR. LUNA TO SEE HER FIRST BEFORE ANY DISCHARGE DECISIONS ARE MADE BY DR. LUNA.
--- NOTE | 2018-08-16 15:46 | Consultation ---
DATE OF CONSULTATION: 08/16/2018 Cardiology Consultation REASON FOR CONSULTATION: Elevated troponin. HISTORY OF PRESENT ILLNESS: Ms. Lopez is a 72-year-old female with past medical history of achalasia and history of recurrent esophagitis, GERD, COPD with frequent pneumonia spells with eight infections last year who has undergone previous achalasia repair in the past. She reports that for the past 11 days she has been having low-grade fevers, nausea, vomiting, just overall malaise. She has been taking care of several sick members in her family including a 9-year-old grandchild and really yesterday started having intractable nausea, vomiting, inability to keep anything down and felt overall very weak. Despite this, the patient denied any chest pain or discomfort. She denied any orthopnea, palpitations, syncope or near syncope. Her main issue was again just inability to keep anything down. Upon arrival, she had lab work checked, which showed an initial troponin of 8.206 with a CK of 87 and an MB of 3.9, and upon repeat went to less than 0.001. EKG was unremarkable for any ischemic changes. PAST MEDICAL HISTORY: 1. Remote history of pulmonary embolism at the age of 25 secondary to oral contraceptive use and prolonged traveling. 2. History of a recurrent esophagitis, achalasia and GERD. 3. COPD and frequent pneumonia spells and severe hay fever. PAST SURGICAL HISTORY: 1. History of achalasia repair. 2. History of lumbar spine surgery. FAMILY HISTORY: Mother at 83 with colon cancer. Father at age of 78 with a heart attack. SOCIAL HISTORY: She is a lifelong nonsmoker. Denies alcohol or illicit drug use. ALLERGIES: INCLUDE IODINE, MEPERIDINE, AND MORPHINE. HOME MEDICATIONS: Include albuterol MDI p.r.n. and occasional steroid burst. REVIEW OF SYSTEMS: GENERAL: Positive for low-grade fevers, malaise, and weight loss. HEENT: Occasional headaches. No vision changes. No sore throat or stuffy nose. RESPIRATORY: Denies any pleuritic chest pain, shortness of breath, cough, or wheezing. CARDIOVASCULAR: As per HPI. GI: Positive for abdominal pain, intractable nausea and vomiting. Denies any bright red blood per rectum, melena, hematemesis, diarrhea, or constipation. : Denies any dysuria, pyuria, or change in urine frequency. MUSCULOSKELETAL: Had legs weakness, but no typical claudication symptoms or leg swelling. HEME: No easy bruising or bleeding. ID: Positive history for frequent pneumonia infections. NEUROLOGIC: Denies any focal weakness, numbness, tingling, seizures, headache, TIA or stroke. Remainder of review of systems is negative or otherwise mentioned. PHYSICAL EXAMINATION: VITAL SIGNS: Height of 67 inches, weight of 200 pounds, BMI is 31.3. Temperature of 97.4, pulse of 56, respiratory rate 18, blood pressure 134/63, and O2 saturation 98% on room air. GENERAL: This is a well-nourished, well-developed lady, who is currently in no apparent distress. HEENT: Normocephalic, atraumatic. Pupils are equal, round, and reactive to light. Extraocular motions are intact. Oropharynx is clear. NECK: No elevation of jugular venous pulsation. No carotid bruits. CARDIOVASCULAR: Regular rate and rhythm. Normal S1 and S2. Soft 1/6 systolic murmur at left lower sternal border. LUNGS: Largely clear to auscultation bilaterally. ABDOMEN: Soft, nontender, nondistended. Normoactive bowel sounds. No hepatosplenomegaly. BACK: No costovertebral angle tenderness. EXTREMITIES: Warm with 2+ bilateral radial pulses, 2+ pedal pulses, 2+ femoral pulses. No edema. NEUROLOGIC: Cranial nerves 2 through 12 are intact. Strength is 5/5. Grossly nonfocal. PSYCH: Normal fluent speech. Appropriate affect. No anxiety or delusions. LABORATORY DATA: White count of 6.7, hemoglobin of 11.9, hematocrit of 36, platelets of 243. Sodium 140, potassium 3.8, chloride 109, bicarb 27, BUN 7, creatinine 0.7, glucose of 99, calcium of 9.0. AST 11, ALT 15, alkaline phosphatase 69, total bilirubin of 0.7, total protein of 5.3, albumin of 3.0. Troponin initially was 8.206, but then repeat went to less than 0.001 and then subsequent one is less than 0.001. Initial CK was 87 and MB was 3.9. EKG reveals normal sinus rhythm, normal axis and no ST or T-wave changes. KUB revealed no evidence of obstruction or ileus. There is L3-S1 posterior fusion surgical changes. DIAGNOSES: 1. Viral gastroenteritis symptoms with intractable nausea, vomiting, inability to keep anything down via p.o., reason for hospitalization, improving. 2. Elevated initial troponin, which largely normalized, most likely suspecting a lab error. 3. History of chronic obstructive pulmonary disease with frequent pneumonias. 4. History of gastroesophageal reflux disease and achalasia. 5. Remote history of pulmonary embolism. PLAN/RECOMMENDATIONS: 1. We have had an extensive discussion with the patient in terms of different management options and the patient definitely wants a more conservative approach. She states that she is followed very closely with Dr. Gonzalez at [facility], who has done previous cardiac evaluation with ischemic risk stratification most recently three months ago which is largely negative. 2. The patient does not endorse any angina or anginal equivalent symptoms at present time, and again by history, this is most likely suspected gastroenteritis type symptoms with significant sick family members with similar illnesses noted. 3. We will check echocardiogram to grossly evaluate her left ventricular function. 4. We will stop any antiplatelets, heparin therapy for the time being. 5. Again, our initial working diagnosis is a lab error given how normal the subsequent troponins were. MD PATRICK Cowan/YU /[id number]
[2018-08-16] MEDS: ENOXAPARIN SOD INJ 40 MG/0.4 ML SYR SC SCH (16:40)
[2018-08-16] MEDS ORDERED: ONDANSETRON HCL 4 MG ORAL DISINTEGRATING TAB PO PRN ×2 (17:30)
--- NOTE | 2018-08-16 17:35 | NUR ---
PT HAS BEEN DISCHARGED AND TRANSFERRED DOWNSTAIRS VIA WHEELCHAIR IN HER PERSONAL AUTO WITH DRIVING. IV HAS BEEN REMOVED FROM RIGHT FOREARM. NO COMPLICATIONS TO THE IV SITE. NO S/S OF DISTRESS.
--- NOTE | 2018-08-17 05:04 | Discharge Summary ---
FINAL DISCHARGE DIAGNOSES: 1. Abdominal pain with nausea, vomiting, and dehydration secondary to viral gastroenteritis. 2. History of esophagitis and gastritis. 3. Morbid obesity. 4. Decreased oral intake. CONSULTANTS: Cardiology. VITAL SIGNS: Temperature 97.1, pulse 64, respiratory rate 18, blood pressure 149/68, and pulse ox 99% on room air. LABORATORY DATA: White count 6.6, hemoglobin 9.9, hematocrit 36, and platelets of 243. Coagulation; PT 13, INR 0.95, PTT 29.8. Chemistry; sodium 140, potassium 3.8, chloride 109, bicarb 27, anion gap of 7.8, BUN 7, creatinine is 0.7, glucose 99, calcium 9, total bilirubin is 0.7, AST 18, ALT 15, alkaline phosphatase 69. Troponins were negative. One of the readings was 8.2, found to be a false reading, two more readings showed undetectable or negative troponins. Albumin was 3. MICROBIOLOGY: None. IMAGING STUDIES: CT abdomen and pelvis shows no evidence of obstruction or ileus. It showed evidence of esophagitis. Shows anterior mediastinal hyperdensity, which I discussed this with the patient at bedside with present and they are scheduled to follow up as an outpatient with repeat CT in 3-4 weeks to see resolution. They verbalized understanding. Abdominal x-ray is negative. HOSPITAL COURSE: A 72-year-old female, came in from an outside ER with complaints of abdominal pain, nausea, vomiting, and dehydration for the last several weeks. She then went to the ED. The patient was admitted and was started on IV fluid hydration with boluses and maintenance. She was on antinausea medications as well. Imaging studies showed no evidence of bowel obstruction, but it did show evidence of esophagitis. The patient was on oral Protonix while during the hospital stay. It seems that the patient also had viral gastritis and respiratory symptoms prior to being discharged. She had no more evidence of nausea, vomiting, and was tolerating a regular diet prior to being discharged home. It did show on CT chest some anterior mediastinal lymph nodes at least to be evaluated as an outpatient for resolution, which could be secondary to current infection. She verbalized to follow up with me as an outpatient and to be performed a repeat CT imaging with her PCP. I discussed the importance of followup CT findings. On discharge, the patient was doing well. No more nausea. No more or vomiting. She was cleared for discharge. The patient did have some troponins that were falsely elevated and the repeat troponins found to be normal. Cardiology was consulted due to the abnormal findings initially with the troponin, but has been cleared for discharge by Cardiology. It was felt the admission troponin was found to be absolutely internal lab error. Repeat troponins were found to be undetectable or normal. The patient was cleared for discharge by Cardiology. On discharge, the patient was back to normal baseline, tolerating diet well. On the day of discharge, vital signs stable, labs reviewed and stable. The patient seen, evaluated, examined thoroughly on the day of discharge. No other complaints. The patient verbalized understanding and agreed to plan of care. A followup appointment as an outpatient with primary care physician in 1 week and further imaging studies in about 3-4 weeks time and to have a repeat CT chest to be further evaluated. The patient verbalized understanding. MEDICATIONS: See med reconciliation form. DISPOSITION: Home. CONDITION: Stable. DIET: Heart healthy. In the event of any worsening symptoms, the patient was advised to come back to the ED for further evaluation. Discharge summary took greater than 35 minutes. MD MILES Reyes/YU /[id number]
== END 2018-08-16 17:30 | disposition home or self-care (01) ==
LOC: FSED 12:22 → ERHOLD 17:40 → MED/SURG3 19:00
PROVIDERS: ADMIT Internal Medicine; ATTEND Internal Medicine
DX: A08.4 Viral intestinal infection, unspecified (principal); E86.0 Dehydration; K21.0 Gastro-esophageal reflux disease with esophagitis; Z09 Encounter for follow-up examination after completed treatment for conditions other than malignant neoplasm; Z98.0 Intestinal bypass and anastomosis status; Z88.5 Allergy status to narcotic agent; Z88.8 Allergy status to other drugs, medicaments and biological substances; E11.9 Type 2 diabetes mellitus without complications; Z91.013 Allergy to seafood; K22.0 Achalasia of cardia; E66.01 Morbid (severe) obesity due to excess calories; Z68.31 Body mass index [BMI] 31.0-31.9, adult; J44.9 Chronic obstructive pulmonary disease, unspecified; Z86.711 Personal history of pulmonary embolism
CPT/HCPCS: 36415 ×2; 74022; 74176; 80048; 80053 ×2; 80076; 81003; 82550; 82553; 84484 ×3; 85025 ×3; 85610; 85730 ×2; 93005; 96365; 99284; G0378 ×3; J1644; J1650; J2405 ×2; J2550; J7030 ×2; S0164 ×2

== ENCOUNTER 2019-06-21 21:06 | Emergency (ER) | payer MEDICARE ==
[~2019-06-21] VITALS: Ht 170.2 cm; Wt 90.7 kg
[2019-06-21] MEDS ORDERED: ONDANSETRON HCL INJ 2MG/ML 2ML 2 MG/ML VIAL IV STA (21:27)
[2019-06-21] MEDS ORDERED: SODIUM CHLORIDE 0.9% 1000ML 1,000 ML IV SCH (21:30)
--- NOTE | 2019-06-21 22:23 | NUR ---
PT RESTING QUIETLY ON L-SIDE. IV DRIPPING WELL.
--- NOTE | 2019-06-21 23:30 | NUR ---
IN TALKING WITH PT
--- NOTE | 2019-06-21 23:36 | Diagnostic Imaging Report ---
EXAM: CT Abdomen and Pelvis without contrast INDICATION: Upper abdominal pain, nausea, vomiting. COMPARISON: CT abdomen/pelvis 08/14/2018. TECHNIQUE: Abdomen and pelvis were scanned utilizing a multidetector helical scanner from the lung base to the pubic symphysis about administration of IV contrast. Coronal and sagittal reformations were obtained. Renal stone protocol was performed. IV CONTRAST: None. ORAL CONTRAST: None COMPLICATIONS: None RADIATION DOSE: Total DLP: 1274.7 mGy*cm Estimated effective dose: (DLP x 0.015 x size factor) mSv CTDIvol has been reviewed. It is below the limits set by the Radiation Protocol Committee (RPC). FINDINGS: LINES and TUBES: None. LOWER THORAX: Again noted is a soft tissue density in the right anterior mediastinum, measuring up to 3.4 x 2.1 cm, partially visualized and grossly unchanged from prior CT. Dependent subsegmental atelectasis. Calcified granuloma in the right lower lobe. HEPATOBILIARY: No evidence of focal lesion. No biliary ductal dilation. Scattered calcified granulomas. GALLBLADDER: No radio-opaque stones or sludge. No wall thickening. SPLEEN: No splenomegaly. Calcified splenic granulomas. PANCREAS: No focal masses or ductal dilatation. ADRENALS: No adrenal nodules KIDNEYS/URETERS: No evidence of hydronephrosis or stone. Punctate 2 mm left mid pole nonobstructing stone, unchanged. No definite ureteral stone. Multiple pelvic phleboliths. GI TRACT: Small hiatal hernia with wall thickening of the distal esophagus, unchanged. No evidence of bowel obstruction. Possible appendix in the right lower quadrant on series 2, image 59. There are no secondary signs of appendicitis. PELVIC ORGANS/BLADDER: Unremarkable. LYMPH NODES: No lymphadenopathy. VESSELS: Minimal scattered atherosclerotic vascular calcifications. PERITONEUM / RETROPERITONEUM: No free air or fluid. BONES AND SOFT TISSUES: No acute osseous abnormality. Posterior fusion from L3 to S1. Severe degenerative disc changes at L2-3. Ventral midline abdominal scar. CONCLUSION: No acute CT abnormality in the abdomen or pelvis. Punctate 2 mm nonobstructing left renal stone. Small hiatal hernia with findings suggestive of esophagitis. Follow-up EGD may be considered if clinically indicated. Similar appearance of partially visualized indeterminate anterior mediastinal soft tissue density, measuring up to 3.4 cm. Recommend short-term follow-up nonemergent CT of the chest with contrast for further evaluation. Signed by: Dr. Laly Jimenez MD on 06/21/2019 11:34 PM
--- NOTE | 2019-06-21 23:45 | NUR ---
CT RESULTS PLACED ON CHART FOR
[2019-06-21] MEDS ORDERED: ONDANSETRON ODT8 MG PO (23:50)
[2019-06-22 00:05] VITALS: BP 129/69
== END 2019-06-21 23:58 | disposition home or self-care (01) ==
LOC: FSED 21:06
DX: K52.29 Other allergic and dietetic gastroenteritis and colitis (principal); K21.0 Gastro-esophageal reflux disease with esophagitis; J45.909 Unspecified asthma, uncomplicated; J98.59 Other diseases of mediastinum, not elsewhere classified
CPT/HCPCS: 74176; 80048; 80076; 84484; 85025; 93005; 96374; J2405; J7030

== ENCOUNTER 2020-11-23 14:19 | Emergency (ER) | payer MEDICARE, OTHER ==
[~2020-11-23] VITALS: Ht 172.7 cm; Wt 99.8 kg
[~2020-11-23 14:19] MED LIST changes: +ONDANSETRON ODT8 MG PO
[2020-11-23] MEDS ORDERED: SODIUM CHLORIDE 0.9% 1000ML 1,000 ML IV STA (14:36)
[2020-11-23] MEDS ORDERED: METOCLOPRAMIDE HCL 10 MG/2ML VIAL IV ONE (14:45)
[2020-11-23] MEDS ORDERED: SODIUM CHLORIDE 0.9% 1000ML 1,000 ML ONE (14:47)
[2020-11-23] MEDS ORDERED: METOCLOPRAMIDE HCL 10 MG/2ML VIAL ONE (14:47)
[2020-11-23] MEDS ORDERED: LACTATED RINGER'S 1,000 ML ONE (15:24)
[2020-11-23] MEDS ORDERED: ONDANSETRON ODT4 MG PO (16:30)
[2020-11-23] MEDS ORDERED: CEPHALEXIN500 MG PO (16:30)
[2020-11-23 16:31] VITALS: BP 148/76
== END 2020-11-23 16:31 | disposition home or self-care (01) ==
LOC: FSED 14:37
DX: R11.2 Nausea with vomiting, unspecified (principal); R51.9 Headache, unspecified; R53.81 Other malaise; J45.909 Unspecified asthma, uncomplicated; K21.9 Gastro-esophageal reflux disease without esophagitis; Z20.822 Contact with and (suspected) exposure to COVID-19
CPT/HCPCS: 70450; 80053; 85025; 99284; J2765; J7030; J7121; U0002

== ENCOUNTER 2024-12-09 14:38 | Emergency (ER) | payer MEDICARE, OTHER ==
[~2024-12-09] VITALS: Ht 170.2 cm; Wt 87.1 kg
[~2024-12-09 14:38] MED LIST changes: +CEPHALEXIN500 MG PO; +ONDANSETRON ODT4 MG PO
[2024-12-09] MEDS ORDERED: VITAMIN D3250 MCG (15:06)
[2024-12-09] MEDS ORDERED: CARBIDOPA-LEVO1 EACH PO (15:06)
[2024-12-09] MEDS ORDERED: B-100 COMPLEX100 MG (15:06)
[2024-12-09] MEDS ORDERED: DEXILANT60 MG (15:06)
[2024-12-09] MEDS ORDERED: HYDROCODON-ACE1 EA11 PO (15:06)
[2024-12-09] MEDS ORDERED: DULOXETINE HCL30 MG (15:06)
[2024-12-09 16:07] VITALS: PULSE 64; RESP 16; TEMP 97.4; O2SAT 98
[2024-12-09] MEDS: FLUORESCEIN SOD(OPTH) 1 MG STRP OP ONE (16:09)
[2024-12-09] MEDS: SODIUM CHLORIDE FLUSH 10 ML SYR IV ONE (16:10)
[2024-12-09] MEDS: ERYTHROMYCIN (OPTH) 3.5 GM OINT OP ONE (16:10)
[2024-12-09] MEDS: TETRACAINE HCL 0.5% OPTH SOLN 4 ML BTL OP ONE (16:10)
[2024-12-09] MEDS ORDERED: PATADAY5 ML OU (16:14)
== END 2024-12-09 16:20 | disposition home or self-care (01) ==
LOC: FSED 14:46
DX: H10.13 Acute atopic conjunctivitis, bilateral (principal); I10 Essential (primary) hypertension; G20.A1 Parkinson's disease without dyskinesia, without mention of fluctuations; K21.9 Gastro-esophageal reflux disease without esophagitis; J45.909 Unspecified asthma, uncomplicated; M54.9 Dorsalgia, unspecified; G89.29 Other chronic pain; Z87.19 Personal history of other diseases of the digestive system
CPT/HCPCS: 99283; J7030